=== PATIENT | female | born 1970 | race Caucasian/White ===

== ENCOUNTER 2016-12-09 16:23 | Emergency (ER) | payer OTHER ==
[~2016-12-09] VITALS: Ht 162.6 cm; Wt 50.0 kg
[~2016-12-09 16:23] MED LIST: AMOX875T PO; CLON0.1T PO; LISI-519 PO
[2016-12-09 16:30] VITALS: BP 116/83; PULSE 92; RESP 16; TEMP 97.9; O2SAT 100
[2016-12-09] MEDS ORDERED: LISI10TA PO (16:43)
[2016-12-09] MEDS ORDERED: SUMA25TA2 PO (16:43)
[2016-12-09] MEDS ORDERED: RANI150T PO (16:43)
[2016-12-09] MEDS ORDERED: DICY20TA10 PO (16:43)
[2016-12-09 16:51] LABS: BLOOD, URINE NEG (NEG); GLUCOSE,URINE NEG (NEG); KETONE, URINE NEG (NEG); NITRITE,URINE NEG (NEG)
--- NOTE | 2016-12-09 16:55 | PD ---
HPI Chief Complaint: GI Complaint Time Seen by Provider: 16:37 Travel History International Travel<30 days: No Contact w/Intl Traveler<30days: No Traveled to known affect area: No History of Present Illness HPI This 46-year-old female says she is having a lot of nausea and vomiting. She is having some pain in her mid back. She has been seeing various doctors for these complaints. She was sent to a kidney doctor and had an ultrasound of the kidneys done today. I have not been able to get the results of this. She also saw her social insurance analyst and right question of hyperparathyroidism. She has a history of tubal ligation. She has been having loose stools 3 times daily. She gets occasional chills. She has a history of urinary tract infection. She feels tired PFSH Past Medical History Hx Anticoagulant Therapy: No Arthritis: No Asthma: No Autoimmune Disease: No Blood Disorders: No Anxiety: No Depression: No Heart Rhythm Problems: No Cancer: No Cardiovascular Problems: Yes (HTN) High Cholesterol: No Chemotherapy: No Chest Pain: No Congestive Heart Failure: No COPD: No Cerebrovascular Accident: No Diabetes: No Diminished Hearing: No Endocrine: No Gastrointestinal Disorders: Yes (IBS) GERD: Yes Glaucoma: No Genitourinary: Yes ("history of kidney problems" ) Headaches: Yes Hepatitis: No Hiatal Hernia: No Hypertension: Yes Immune Disorder: No Implanted Vascular Access Dvce: No Kidney Stones: Yes Musculoskeletal: No Neurologic: No Psychiatric: No Reproductive: No Respiratory: No Immunizations Current: Yes Migraines: No Myocardial Infarction: No Pancreatitis: Yes Radiation Therapy: No Renal Failure: Yes (hx of insufficiency) Seizures: No Sickle Cell Disease: No Sleep Apnea: No Thyroid Disease: No Ulcer: No ?: Not : 3 Para: 2 Miscarriage: 1 : 0 Dilation and Curettage (D&C): Yes Tubal Ligation: Yes Past Surgical History Abdominal Surgery: No AICD: No Appendectomy: No Arteriovenous Shunt: No Cardiac Surgery: No Cholecystectomy: No Ear Surgery: No Endocrine Surgery: No Eye Surgery: No Genitourinary Surgery: No Gynecologic Surgery: Yes (TUBAL LIGATION, D & C) Insulin Pump: No Joint Replacement: No Neurologic Surgery: No Oral Surgery: No Pacemaker: No Thoracic Surgery: No Other Surgery: Yes Social History Alcohol Use: Yes Tobacco Use: No Substance Use: No Allergies-Medications (Allergen,Severity, Reaction): Coded Allergies: No Known Allergies (Unverified , 12/09/16) Reported Meds & Prescriptions Reported Meds & Active Scripts Active Reported Sumatriptan (Sumatriptan Succinate) 25 Mg Tab 25 Mg PO ONCE PRN If a satisfactory response has not been obtained at 2 hours, a second dose may be administered Ranitidine (Ranitidine HCl) 150 Mg Tab 150 Mg PO BID Dicyclomine (Dicyclomine HCl) 20 Mg Tab 20 Mg PO BID PRN Lisinopril-Hctz 10-12.5 Mg Tab 1 Tab PO DAILY Review of Systems General / Constitutional: No: Fever, Chills Eyes: No: Diploplia, Blurred Vision HENT: No: Headaches Cardiovascular: No: Chest Pain or Discomfort Gastrointestinal: Positive: Nausea Genitourinary: Positive: Flank Pain Musculoskeletal: No: Myalgias Neurologic: Positive: Weakness Hematologic/Lymphatic: No: Easy Bruising Physical Exam Narrative GENERAL: Well-developed female SKIN: Warm and dry. HEAD: Atraumatic. Normocephalic. EYES: Pupils equal and round. No scleral icterus. No injection or drainage. ENT: No nasal bleeding or discharge. Mucous membranes pink and moist. NECK: Trachea midline. No JVD. CARDIOVASCULAR: Regular rate and rhythm. No murmur appreciated. RESPIRATORY: No accessory muscle use. Clear to auscultation. Breath sounds equal bilaterally. GASTROINTESTINAL: Abdomen soft, non-tender, nondistended. Hepatic and splenic margins not palpable. MUSCULOSKELETAL: No obvious deformities. No clubbing. No cyanosis. No edema. NEUROLOGICAL: Awake and alert. No obvious cranial nerve deficits. Motor grossly within normal limits. Normal speech. PSYCHIATRIC: Appropriate mood and affect; insight and judgment normal. Data Data Last Documented VS Vital Signs Date Time Temp Pulse Resp B/P Pulse Ox O2 Delivery O2 Flow Rate FiO2 12/09/16 16:30 97.9 92 16 116/83 100 Orders Urinalysis - C+S If Indicated (12/09/16 16:34) Complete Blood Count With Diff (12/09/16 16:48) Comprehensive Metabolic Panel (12/09/16 16:48) Sodium Chlor 0.9% 1000 Ml Inj (Ns 1000 M (12/09/16 17:00) Ondansetron Inj (Zofran Inj) (12/09/16 17:00) Labs Laboratory Tests Test 12/09/16 12/09/16 16:35 16:55 Urine Color YELLOW Urine Turbidity CLEAR Urine pH 7.0 Urine Specific [place] 1.022 Urine Protein NEG mg/dL Urine Glucose (UA) NEG mg/dL Urine Ketones NEG mg/dL Urine Occult Blood NEG Urine Nitrite NEG Urine Bilirubin NEG Urine Leukocyte Esterase TRACE Urine WBC 0-2 /hpf Urine Squamous Epithelial 0-5 /hpf Cells Microscopic Urinalysis Comment CULT NOT INDICATED White Blood Count 10.0 TH/MM3 Red Blood Count 4.24 MIL/MM3 Hemoglobin 13.9 GM/DL Hematocrit 41.2 % Mean Corpuscular Volume 97.1 FL Mean Corpuscular Hemoglobin 32.7 PG Mean Corpuscular Hemoglobin 33.7 % Concent Red Cell Distribution Width 11.6 % Platelet Count 441 TH/MM3 Mean Platelet Volume 7.9 FL Neutrophils (%) (Auto) 56.4 % Lymphocytes (%) (Auto) 33.8 % Monocytes (%) (Auto) 7.3 % Eosinophils (%) (Auto) 1.8 % Basophils (%) (Auto) 0.7 % Neutrophils # (Auto) 5.6 TH/MM3 Lymphocytes # (Auto) 3.4 TH/MM3 Monocytes # (Auto) 0.7 TH/MM3 Eosinophils # (Auto) 0.2 TH/MM3 Basophils # (Auto) 0.1 TH/MM3 CBC Comment DIFF FINAL Differential Comment Sodium Level 137 MEQ/L Potassium Level 3.3 MEQ/L Chloride Level 97 MEQ/L Carbon Dioxide Level 31.5 MEQ/L Anion Gap 9 MEQ/L Blood Urea Nitrogen 23 MG/DL Creatinine 0.99 MG/DL Estimat Glomerular Filtration 60 ML/MIN Rate Random Glucose 105 MG/DL Calcium Level 8.8 MG/DL Total Bilirubin 0.3 MG/DL Aspartate Amino Transf 21 U/L (AST/SGOT) Alanine Aminotransferase 31 U/L (ALT/SGPT) Alkaline Phosphatase 82 U/L Total Protein 7.0 GM/DL Albumin 3.4 GM/DL [facility] Medical Decision Making Medical Screen Exam Complete: Yes Emergency Medical Condition: Yes Medical Record Reviewed: Yes Differential Diagnosis Differential includes a left-sided imbalance, gastritis, Narrative Course The ultrasound that she had done earlier today showed bilateral renal cysts, no hydronephrosis. Question of some parenchymal disease. Her urine is negative. Her creatinine now is 0.9. Etiology for her nausea has not been determined. Said her daughter don't think it is urgent at this time as she is not having abdominal pain and has no rigidity or guarding Diagnosis Primary Impression: Nausea Scripts Metoclopramide (Reglan)10 Mg Tab10 Mg PO TIDAC PRN (NAUSEA) #30 TAB Ref 0 Prov:Aldair Garcia MD 12/09/16 Disposition: 01 DISCHARGE HOME Condition: Stable Aldair Garcia MD Dec 09, 2016 16:55
[2016-12-09] MEDS ORDERED: ONDANSETRON HCL 4 MG/2 ML VIAL IV PUSH ONE (17:00)
[2016-12-09] MEDS ORDERED: SODIUM CHLOR 0.9% 1000 ML INJ 1,000 ML IV SCH (17:00)
[2016-12-09 17:10] LABS: COMMENT (UR) CULT NOT INDICATED; CULTURE IF INDICATED CULT NOT INDICATED; SQUAMOUS EPITHELIAL CELL URINE 0-5 /hpf (0-5); URINE COLOR YELLOW (YELLW/STRAW); WBC, URINE 0-2 /hpf (0-5)
[2016-12-09 17:19] LABS: AUTOMATED NEUTROPHIL # 5.6 TH/MM3 (1.8-7.7); BASOPHIL # 0.1 TH/MM3 (0-0.2); BASOPHIL % 0.7 % (0.0-2.0); EOSINOPHIL # 0.2 TH/MM3 (0-0.4); EOSINOPHIL % 1.8 % (0.0-4.0); HEMATOCRIT 41.2 % (35.0-46.0); LYMPH % 33.8 % (9.0-44.0); LYMPHOCYTE # 3.4 TH/MM3 (1.0-4.8); MEAN CELL VOLUME 97.1 FL (80.0-100.0); MEAN CORPUSCULAR HEMOGLOBIN 32.7 PG (27.0-34.0); MEAN CORPUSCULAR HGB CONC 33.7 % (32.0-36.0); MONO % 7.3 % (0.0-8.0); NEUT % 56.4 % (16.0-70.0); PLATELET COUNT 441 TH/MM3 (150-450); RED BLOOD COUNT 4.24 MIL/MM3 (4.00-5.30); RED CELL DISTRIBUTION WIDTH 11.6 % (11.6-17.2)
[2016-12-09 17:32] LABS: HEMO FLAGS DIFF FINAL
[2016-12-09 17:35] LABS: CHLORIDE 97 MEQ/L (98-107); POTASSIUM 3.3 MEQ/L (3.5-5.1); SODIUM (NA) 137 MEQ/L (136-145)
[2016-12-09 17:38] LABS: ANION GAP 9 MEQ/L (5-15); BICARBONATE 31.5 MEQ/L (21.0-32.0)
[2016-12-09 17:39] LABS: BLOOD UREA NITROGEN 23 MG/DL (7-18)
[2016-12-09 17:41] LABS: ALT (GPT) 31 U/L (10-53)
[2016-12-09 17:42] LABS: AST (GOT) 21 U/L (15-37); GLOMERULAR FILTRATION RATE 60 ML/MIN (>89)
[2016-12-09 17:43] LABS: TOTAL BILIRUBIN ADULT 0.3 MG/DL (0.2-1.0)
[2016-12-09 17:44] LABS: ALKALINE PHOSPHATASE 82 U/L (45-117)
[2016-12-09] MEDS ORDERED: REGL10TA5 PO (18:06)
[2016-12-09] MEDS ORDERED: POTASSIUM CHLORIDE 20 MEQ CONTROLLED RELEASE TAB PO ONE (18:15)
[2016-12-09 18:23] VITALS: BP 115/81
== END 2016-12-09 18:25 | disposition home or self-care (01) ==
LOC: PHED 16:23
DX: R11.2 Nausea with vomiting, unspecified (principal)
CPT/HCPCS: 80053; 81001; 85025; 96374; 99283; J2405; J7030

== ENCOUNTER 2017-04-01 17:11 | Emergency (ER) | payer OTHER ==
[~2017-04-01] VITALS: Ht 162.6 cm; Wt 49.0 kg
[~2017-04-01 17:11] MED LIST changes: -AMOX875T PO; -CLON0.1T PO; +DICY20TA10 PO; -LISI-519 PO; +LISI10TA PO; +RANI150T PO; +REGL10TA5 PO; +SUMA25TA2 PO
[2017-04-01 17:14] VITALS: BP 109/80; PULSE 91; RESP 18; TEMP 98.2; O2SAT 97
[2017-04-01] MEDS ORDERED: ZOFR4TAB PO (17:36)
--- NOTE | 2017-04-01 17:41 | PD ---
HPI Chief Complaint: ENT Complaint Time Seen by Provider: 17:35 Travel History International Travel<30 days: No Contact w/Intl Traveler<30days: No Traveled to known affect area: No History of Present Illness HPI 46-year-old female presents to the emergency room for evaluation of left ear discomfort and fullness for the past week. Patient states it has been getting progressively worse. She has associated nausea and dizziness from the symptoms. States that when she stands up she has disequilibrium like she has been drinking alcohol. She is normally on Flonase but has not had it for the past 4 days. She denies fever, chills, congestion, sore throat, cough, ear drainage, or significant ear pain. PFSH Past Medical History Hx Anticoagulant Therapy: No Arthritis: No Asthma: No Autoimmune Disease: No Blood Disorders: No Anxiety: No Depression: No Heart Rhythm Problems: No Cancer: No Cardiovascular Problems: Yes (HTN) High Cholesterol: No Chemotherapy: No Chest Pain: No Congestive Heart Failure: No COPD: No Cerebrovascular Accident: No Diabetes: No Diminished Hearing: No Endocrine: No Gastrointestinal Disorders: Yes (IBS) GERD: Yes Glaucoma: No Genitourinary: Yes (Kidney disease) Headaches: Yes Hepatitis: No Hiatal Hernia: No Hypertension: Yes Immune Disorder: No Implanted Vascular Access Dvce: No Kidney Stones: Yes Musculoskeletal: No Neurologic: No Psychiatric: No Reproductive: No Respiratory: No Immunizations Current: Yes Migraines: No Myocardial Infarction: No Pancreatitis: Yes Radiation Therapy: No Renal Failure: Yes (hx of insufficiency) Seizures: No Sickle Cell Disease: No Sleep Apnea: No Thyroid Disease: No Ulcer: No Influenza Vaccination: No ?: Not LMP: ONE WEEK AGO : 3 Para: 2 Miscarriage: 1 : 0 Dilation and Curettage (D&C): Yes Tubal Ligation: Yes Past Surgical History Abdominal Surgery: No AICD: No Appendectomy: No Arteriovenous Shunt: No Cardiac Surgery: No Cholecystectomy: No Ear Surgery: No Endocrine Surgery: No Eye Surgery: No Genitourinary Surgery: No Gynecologic Surgery: Yes (TUBAL LIGATION, D & C) Insulin Pump: No Joint Replacement: No Neurologic Surgery: No Oral Surgery: No Pacemaker: No Thoracic Surgery: No Other Surgery: Yes Social History Alcohol Use: Yes (rarely) Tobacco Use: No Substance Use: No Allergies-Medications (Allergen,Severity, Reaction): Coded Allergies: No Known Allergies (Unverified , 04/01/17) Reported Meds & Prescriptions Reported Meds & Active Scripts Active Amoxicillin 500 Mg Cap 500 Mg PO TID 7 Days Reported Zofran (Ondansetron HCl) 4 Mg Tab 4 Mg PO Q8HR PRN Sumatriptan (Sumatriptan Succinate) 25 Mg Tab 25 Mg PO ONCE PRN If a satisfactory response has not been obtained at 2 hours, a second dose may be administered Dicyclomine (Dicyclomine HCl) 20 Mg Tab 20 Mg PO BID PRN Lisinopril-Hctz 10-12.5 Mg Tab 1 Tab PO DAILY Review of Systems Except as stated in HPI: all other systems reviewed are Neg Physical Exam Narrative GENERAL: Well-nourished, well-developed female in no acute distress. Afebrile. Ambulatory. SKIN: Focused skin assessment warm/dry. HEAD: Normocephalic. EYES: No scleral icterus. No injection or drainage. EARS: Bilateral pinnae and external canals appear within normal limits. Right tympanic membrane without erythema, dullness or perforation. Left tympanic membrane is very slightly erythematous with obvious effusion. No perforation. NECK: Supple, trachea midline. No JVD or lymphadenopathy. CARDIOVASCULAR: Regular rate and rhythm without murmurs, gallops, or rubs. RESPIRATORY: Breath sounds equal bilaterally. No accessory muscle use. Data Data Last Documented VS Vital Signs Date Time Temp Pulse Resp B/P Pulse Ox O2 Delivery O2 Flow Rate FiO2 04/01/17 17:14 98.2 91 18 109/80 97 MDM Medical Decision Making Medical Screen Exam Complete: Yes Emergency Medical Condition: Yes Medical Record Reviewed: Yes Differential Diagnosis Otitis media versus otitis externa versus eustachian tube dysfunction Narrative Course 46-year-old female presents to the emergency room for evaluation of left ear discomfort for the past week. She has associated disequilibrium and nausea. She is afebrile and well-appearing in the emergency room. No systemic signs of infection. Rest comfortably in bed. Physical exam reveals left tympanic membrane is very slightly erythematous with obvious effusion. No perforation. Patient will be treated conservatively with oral antibiotics for otitis media with effusion. She was told to follow up with a primary care physician or return to the emergency room forcing symptoms. She understands and agrees. Diagnosis Primary Impression: Acute otitis media with effusion of left ear Referrals: Primary Care Physician Patient Instructions: General Instructions, Otitis Media (ED) Additional Instructions: Rest and drink plenty of fluids. Continue Flonase as directed. Take Afrin as directed. Do not take greater than 3 days. Take amoxicillin as directed, until gone. Follow-up with a primary care physician. Return to the emergency room for worsening symptoms. Med/Other Pt SpecificInfo: Prescription(s) given Scripts Amoxicillin 500 Mg [id number] Mg PO TID 7 Days Ref 0 Prov:Sergio Chavez MD 04/01/17 Disposition: 01 DISCHARGE HOME Condition: Stable Karuna Barber April 01, 2017 17:41
[2017-04-01] MEDS ORDERED: AMOX500C PO (17:43)
== END 2017-04-01 17:54 | disposition home or self-care (01) ==
LOC: PHEFT 17:11
DX: H65.192 Other acute nonsuppurative otitis media, left ear (principal); I10 Essential (primary) hypertension
CPT/HCPCS: 99282

== ENCOUNTER 2017-05-08 23:24 | Emergency (ER) | payer OTHER ==
[~2017-05-08] VITALS: Ht 162.6 cm; Wt 53.7 kg
[~2017-05-08 23:24] MED LIST changes: +AMOX500C PO; -RANI150T PO; -REGL10TA5 PO; +ZOFR4TAB PO
[2017-05-08 23:31] VITALS: BP 144/93; PULSE 113; RESP 16; TEMP 98.1; O2SAT 99
[2017-05-09] MEDS ORDERED: LISI-519 PO (00:38)
--- NOTE | 2017-05-09 00:41 | PD ---
HPI Chief Complaint: Complaint Time Seen by Provider: 00:26 Travel History International Travel<30 days: No Contact w/Intl Traveler<30days: No Traveled to known affect area: No History of Present Illness HPI The patient is a 46-year-old female, frequent visitor to the emergency department for minor problems who has multiple complaints. The patient has frequency of urination, chronic bilateral leg and feet swelling, right thumb appearing purple, nausea for over a month, she does have chronic nausea and takes Zofran for this and redness in both eyes as well as a headache behind both eyes and chronic diarrhea. The patient does have renal insufficiency and is followed by Dr. Diony Miranda for this and is checked twice yearly by him. The purple appearance of the right thumb has subsided and the swelling of the feet have subsided now that she has her feet up. 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 PFSH Past Medical History Hx Anticoagulant Therapy: No Arthritis: No Asthma: No Autoimmune Disease: No Blood Disorders: No Anxiety: No Depression: No Heart Rhythm Problems: No Cancer: No Cardiovascular Problems: Yes (HTN) High Cholesterol: No Chemotherapy: No Chest Pain: No Congestive Heart Failure: No COPD: No Cerebrovascular Accident: No Diabetes: No Diminished Hearing: No Endocrine: No Gastrointestinal Disorders: Yes (IBS) GERD: Yes Glaucoma: No Genitourinary: Yes (Kidney disease) Headaches: Yes Hepatitis: No Hiatal Hernia: No Hypertension: Yes Immune Disorder: No Implanted Vascular Access Dvce: No Kidney Stones: Yes Musculoskeletal: No Neurologic: No Psychiatric: No Reproductive: No Respiratory: No Immunizations Current: Yes Migraines: No Myocardial Infarction: No Pancreatitis: Yes Radiation Therapy: No Renal Failure: Yes (hx of insufficiency) Seizures: No Sickle Cell Disease: No Sleep Apnea: No Thyroid Disease: No Ulcer: No Tetanus Vaccination: < 5 Years Influenza Vaccination: No ?: Not LMP: 1 MONTH AGO : 3 Para: 2 Miscarriage: 1 : 0 Dilation and Curettage (D&C): Yes Tubal Ligation: Yes Past Surgical History Abdominal Surgery: No AICD: No Appendectomy: No Arteriovenous Shunt: No Cardiac Surgery: No Cholecystectomy: No Ear Surgery: No Endocrine Surgery: No Eye Surgery: No Genitourinary Surgery: No Gynecologic Surgery: Yes (TUBAL LIGATION, D & C) Insulin Pump: No Joint Replacement: No Neurologic Surgery: No Oral Surgery: No Pacemaker: No Thoracic Surgery: No Other Surgery: Yes Social History Alcohol Use: Yes (rarely) Tobacco Use: No (QUIT 25 YRS AGO) Substance Use: No Allergies-Medications (Allergen,Severity, Reaction): Coded Allergies: No Known Allergies (Unverified , 05/09/17) Reported Meds & Prescriptions Reported Meds & Active Scripts Active Reported Lisinopril 5 Mg Tab 5 Mg PO DAILY Review of Systems Except as stated in HPI: all other systems reviewed are Neg Physical Exam Narrative GENERAL: Well-nourished, well-developed patient in no apparent distress. Her vital signs show blood pressure 144/93 and heart rate of 113 but otherwise normal. When I see her her heart rate is in the mid 80s. SKIN: Focused skin assessment warm/dry. No skin rashes seen. HEAD: Normocephalic. EYES: No scleral icterus. The patient does have bilateral conjunctival injection without any drainage. NECK: Supple, trachea midline. No JVD or lymphadenopathy. There is no meningismus present. CARDIOVASCULAR: Regular rate and rhythm without murmurs, gallops, or rubs. RESPIRATORY: Breath sounds equal bilaterally. No accessory muscle use. Lungs clear to auscultation bilaterally. GASTROINTESTINAL: Abdomen soft, non-tender, nondistended. MUSCULOSKELETAL: No cyanosis, or edema. I do not see any redness or duskiness of either thumb, the gums appear normal. BACK: Nontender without obvious deformity. No CVA tenderness. ENT: No sinus tenderness is present. The throat is clear and the tympanic membranes are clear. Data Data Last Documented VS Vital Signs Date Time Temp Pulse Resp B/P Pulse Ox O2 Delivery O2 Flow Rate FiO2 05/08/17 23:31 98.1 113 16 144/93 99 Orders Urinalysis - C+S If Indicated (05/09/17 00:04) Ed Urine Pregnancytest Poc (05/09/17 00:04) Labs Laboratory Tests Test 05/09/17 00:05 Urine Color YELLOW Urine Turbidity CLEAR Urine pH 8.0 Urine Specific [place] 1.011 Urine Protein 30 mg/dL Urine Glucose (UA) NEG mg/dL Urine Ketones NEG mg/dL Urine Occult Blood NEG Urine Nitrite NEG Urine Bilirubin NEG Urine Leukocyte Esterase NEG Urine RBC 0-2 /hpf Urine WBC 3-5 /hpf Urine Squamous Epithelial 6-8 /hpf Cells Urine Bacteria RARE /hpf Microscopic Urinalysis Comment CULT NOT INDICATED MDM Medical Decision Making Medical Screen Exam Complete: Yes Emergency Medical Condition: Yes Medical Record Reviewed: Yes Interpretation(s) The urinalysis is normal except for rare bacteria and culture is not indicated. Differential Diagnosis Viral syndrome, chronic renal insufficiency, chronic nausea, urinary tract infection Narrative Course The patient likely has a viral syndrome. She has headache behind her eyes and conjunctival injection. She also has multiple chronic other problems that she sees nephrology for. The swelling of the peak, purple appearance of the right thumb has resolved. Diagnosis Primary Impression: Viral syndrome Additional Instructions: As we discussed, I wrote use Zofran prescription for your gastrointestinal problems. You may need to see a grocery sacker for these. Med/Other Pt SpecificInfo: Prescription(s) given Scripts Ondansetron (Zofran)4 Mg Tab4 Mg PO Q6HR PRN (NAUSEA OR VOMITING) #30 TAB Ref 0 Prov:Suleman Montoya MD 05/09/17 Disposition: DISCHARGE HOME Condition: Stable Suleman Montoya MD May 09, 2017 00:41
[2017-05-09 00:57] LABS: BLOOD, URINE NEG (NEG); GLUCOSE,URINE NEG (NEG); KETONE, URINE NEG (NEG); NITRITE,URINE NEG (NEG)
[2017-05-09 01:06] LABS: BACTERIA, URINE RARE /hpf; RBC, URINE 0-2 /hpf (0-3); URINE COLOR YELLOW (YELLW/STRAW)
[2017-05-09 01:07] LABS: COMMENT (UR) CULT NOT INDICATED; CULTURE IF INDICATED CULT NOT INDICATED
[2017-05-09] MEDS ORDERED: ZOFR4TAB PO (01:12)
[2017-05-09 01:26] VITALS: BP 120/68
== END 2017-05-09 01:27 | disposition home or self-care (01) ==
LOC: PHED 23:24
DX: B34.9 Viral infection, unspecified (principal); R51 Headache; H11.89 Other specified disorders of conjunctiva; R35.0 Frequency of micturition; R11.0 Nausea; R19.7 Diarrhea, unspecified; N28.9 Disorder of kidney and ureter, unspecified; I10 Essential (primary) hypertension; Z86.79 Personal history of other diseases of the circulatory system; Z87.19 Personal history of other diseases of the digestive system; Z87.448 Personal history of other diseases of urinary system
CPT/HCPCS: 81001; 84703; 99283

== ENCOUNTER 2017-05-15 05:10 | Inpatient (IN) | payer OTHER ==
[~2017-05-15] VITALS: Ht 162.6 cm; Wt 53.8 kg
[~2017-05-15 05:10] MED LIST changes: -AMOX500C PO; -DICY20TA10 PO; +LISI-519 PO; -LISI10TA PO; -SUMA25TA2 PO
[2017-05-15 15:00] VITALS: BP 166/107; PULSE 104; RESP 20; TEMP 97.6; O2SAT 99
--- NOTE | 2017-05-15 15:48 | HHI.HP ---
HPI Service [facility] Primary Care Physician Non-Staff Admission Diagnosis renal failure Diagnoses: (1) Renal failure Diagnosis: Principal Chief Complaint: ' kidney failure' Travel History International Travel<30 Days: No Contact w/Intl Traveler <30 Da: No Traveled to Known Affected Are: No History of Present Illness patient is a 46 y/o female with history of chronic kidney disease and hypertension who was initially admitted to [facility] for acute kidney injury and hypercalcemia. she says that she had ' flu-like' symptoms about two weeks ago. she says that she was seen in ER last week and was discharge home after she was told that she had a viral disease. she says that she wasn't feeling good and noticed that her legs were swollen. she says that she had some ' jerky movements' of the hands. she was admitted to [facility] and underwent kidney biopsy yesterday. she was transferred to [facility] for further evaluation and treatment. at the time of my evaluation she was resting comfortably with no distress. had mild headache otherwise she denies any chest pain, sob, abdominal pain, nausea or vomiting. Review of Systems Constitutional: DENIES: Fever, Weight loss, Chills, Night Sweats Eyes: DENIES: Blurred vision, Diplopia, Vision loss, Double Vision Ears, nose, mouth, throat: DENIES: Tinnitus, Vertigo, Throat pain, Epistaxis Respiratory: DENIES: Apneas, Cough, Snoring, Wheezing, Hemoptysis, Sputum production, Shortness of breath Cardiovascular: DENIES: Chest pain, Palpitations, Syncope, Dyspnea on Exertion , PND, Lower Extremity Edema, Orthopnea, Claudication Gastrointestinal: DENIES: Abdominal pain, Black stools, Bloody stools, Constipation, Diarrhea, Nausea, Vomiting, Difficulty Swallowing, Anorexia Genitourinary: DENIES: Urinary frequency, Urgency, Hematuria, Dysuria Musculoskeletal: DENIES: Joint pain, Muscle aches, Stiffness, Joint Swelling Integumentary: DENIES: Rash Neurologic: COMPLAINS OF: Headache, DENIES: Abnormal gait, Localized weakness , Paresthesias, Seizures, Speech Problems, Tremor, Poor Balance Psychiatric: DENIES: Anxiety, Confusion, Mood changes, Depression, Hallucinations, Agitation, Suicidal Ideation, Homicidal Ideation, Delusions Past Family Social History Past Medical History hypertension chronic kidney disease Past Surgical History tubal ligation Reported Medications lisinopril zofran Allergies: Coded Allergies: No Known Allergies (Unverified , 05/09/17) Family History diabetes runs in the family. Social History doesn't smoke. drinks occasionally. Physical Exam Physical Exam GENERAL: This is a well-nourished, well-developed patient, in no apparent distress. SKIN: No rashes, ecchymoses or lesions. Cool and dry. HEAD: Atraumatic. Normocephalic. No temporal or scalp tenderness. EYES: Pupils equal round and reactive. Extraocular motions intact. No scleral icterus. No injection or drainage. ENT: Nose without bleeding, purulent drainage or septal hematoma. Throat without erythema, tonsillar hypertrophy or exudate. Uvula midline. Airway patent. NECK: Trachea midline. No JVD or lymphadenopathy. Supple, nontender, no meningeal signs. CARDIOVASCULAR: Regular rate and rhythm without murmurs, gallops, or rubs. RESPIRATORY: Clear to auscultation. Breath sounds equal bilaterally. No wheezes , rales, or rhonchi. GASTROINTESTINAL: Abdomen soft, non-tender, nondistended. No hepato-splenomegaly , or palpable masses. No guarding. MUSCULOSKELETAL: Extremities without clubbing, cyanosis, or edema. No joint tenderness, effusion, or edema noted. No calf tenderness. Negative Homans sign bilaterally. NEUROLOGICAL: Awake and alert. Cranial nerves II through XII intact. Motor and sensory grossly within normal limits. Five out of 5 muscle strength in all muscle groups. Normal speech. Assessment and Plan Assessment and Plan A/P - acute kidney injury superimposed on chronic kidney disease- s/p kidney biopsy ( [facility]) start IV fluid and monitor the renal function- follow the result of biopsy- consult nephrology -hypercalcemia; start IV fluid and monitor calcium level -hypertension; stop lisinopril- clonidine prn for now- will monitor BP -DVT prophylaxis with SCD's Discussed Condition With the patient and RN. Physician Certification 2 Midnight Certification Type: Admission for Inpatient Services Order for Inpatient Services The services are ordered in accordance with Medicare regulations or non- Medicare payer requirements, as applicable. In the case of services not specified as inpatient-only, they are appropriately provided as inpatient services in accordance with the 2-midnight benchmark. Estimated LOS (days): 3 days is the estimated time the patient will need to remain in the hospital, assuming treatment plan goals are met and no additional complications. Post-Hospital Plan: Home Problem Qualifiers (1) Renal failure: Oseas Cardona MD May 15, 2017 15:48
[2017-05-15] MEDS ORDERED: SODIUM CHLOR 0.9% 1000 ML INJ 1,000 ML IV ONE (16:00)
[2017-05-15] MEDS: ACETAMINOPHEN 325 MG TAB PO PRN (16:09)
[2017-05-15] MEDS: cloNIDine HCL 0.1 MG TAB PO PRN (16:09)
--- NOTE | 2017-05-15 17:01 | PD.CONS ---
HPI Service Nephrology Consult Requested By Dr. Cardona Reason for Consult Acute renal failure Primary Care Physician Non-Staff History of Present Illness Patient is a 46-year-old white female with history of chronic kidney disease stage II she used to follow with Dr. Smith and then recently switched to Dr. 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 She was admitted at [facility] and a kidney biopsy was done which showed acute tubular necrosis, due to insurance she was transferred back to [place]. She states she is feeling better the swelling has went away she is passing urine. Review of Systems Constitutional: COMPLAINS OF: Fatigue Gastrointestinal: COMPLAINS OF: Abdominal pain Psychiatric: COMPLAINS OF: Anxiety Past Family Social History Allergies: Coded Allergies: No Known Allergies (Unverified , 05/09/17) Past Medical History Acute renal failure Chronic kidney disease Hypertension Irritable bowel syndrome Osteoporosis Kidney stones Hernia Tubal ligation Past Surgical History Tubal ligation D&C Reported Medications Reported Meds & Active Scripts Active Zofran (Ondansetron HCl) 4 Mg Tab 4 Mg PO Q6HR PRN Reported Lisinopril 5 Mg Tab 5 Mg PO DAILY Active Ordered Medications Current Medications Medications (Trade) Dose Ordered Sig/Nelia Route Start Time Stop Time Status Last Admin (Catapres) 0.1 mg Q8HR PRN PO 05/15/17 15:45 05/15/17 16:09 (Zofran Inj) 4 mg Q8HR PRN IV PUSH 05/15/17 15:45 Acetaminophen 650 mg 650 mg Q4H PRN PO 05/15/17 15:45 05/15/17 16:09 (NS 1000 ml Inj) 1,000 ml @ 40 mls/hr Q24H ONCE IV 05/15/17 16:00 05/16/17 15:59 05/15/17 16:10 Family History Mother has medical issues colostomy and chronic kidney disease Social History She has a rare alcoholic beverages denies smoking Physical Exam Vital Signs Vital Signs Date Time Temp Pulse Resp B/P Pulse Ox O2 Delivery O2 Flow Rate FiO2 05/15/17 15:56 Room Air Physical Exam GENERAL: Well-nourished, well-developed patient. SKIN: Warm and dry. HEAD: Normocephalic. EYES: No scleral icterus. No injection or drainage. NECK: Supple, trachea midline. No JVD or lymphadenopathy. CARDIOVASCULAR: Regular rate and rhythm without murmurs, gallops, or rubs. RESPIRATORY: Breath sounds equal bilaterally. No accessory muscle use. GASTROINTESTINAL: Abdomen soft, non-tender, nondistended. EXTREMITIES: No cyanosis, or edema. NEUROLOGICAL: Awake, alert, and oriented x 3. Non-focal. Assessment and Plan Problem List: (1) Acute renal failure Plan: Patient had a right kidney biopsy and it showed the acute tubular necrosis, she probably got a viral syndrome and got dehydrated and now is recovering continue to follow BMP Avoid nephrotoxins Avoid dye studies or gadolinium I discussed with the case with Dr. Day She should avoid calcium supplements (2) Viral syndrome Plan: Continue to monitor (3) Hypercalcemia Plan: Resolved Nguyen Downing MD May 15, 2017 17:01
[2017-05-15] MEDS: ONDANSETRON HCL 4 MG/2 ML VIAL IV PUSH PRN (18:18)
[2017-05-15 20:00] VITALS: BP 165/98; PULSE 82; PULSE 86; RESP 18; TEMP 97.5; O2SAT 98
[2017-05-15] MEDS: PANTOPRAZOLE SOD 40 MG DELAYED RELEASE TAB PO SCH (21:11)
[2017-05-15 21:45] LABS: BACTERIA, URINE RARE /hpf; BLOOD, URINE MOD (NEG); COMMENT (UR) CULT NOT INDICATED; CULTURE IF INDICATED CULT NOT INDICATED; GLUCOSE,URINE NEG (NEG); KETONE, URINE NEG (NEG); NITRITE,URINE NEG (NEG); PH, URINE 7.5 (5.0-8.5); SQUAMOUS EPITHELIAL CELL URINE 1 /hpf (0-5); URINE COLOR LIGHT-YELLOW (YELLW/STRAW)
[2017-05-16] VITALS: BP 152/92; PULSE 85; RESP 18; TEMP 97.8; O2SAT 96
[2017-05-16 04:00] VITALS: BP 169/98; PULSE 91; RESP 16; TEMP 97.6; O2SAT 96
[2017-05-16 06:04] LABS: BASOPHIL # 0.1 TH/MM3 (0-0.2); BASOPHIL % 1.4 % (0.0-2.0); EOSINOPHIL # 0.2 TH/MM3 (0-0.4); EOSINOPHIL % 3.6 % (0.0-4.0); HEMO FLAGS DIFF FINAL; LYMPH % 28.4 % (9.0-44.0); LYMPHOCYTE # 1.9 TH/MM3 (1.0-4.8); MEAN CORPUSCULAR HEMOGLOBIN 32.3 PG (27.0-34.0); MEAN CORPUSCULAR HGB CONC 32.7 % (32.0-36.0); MONO % 7.8 % (0.0-8.0); NEUT % 58.8 % (16.0-70.0); PLATELET COUNT 341 TH/MM3 (150-450); RED BLOOD COUNT 2.42 MIL/MM3 (4.00-5.30); RED CELL DISTRIBUTION WIDTH 12.6 % (11.6-17.2); WHITE BLOOD COUNT 6.7 TH/MM3 (4.0-11.0)
[2017-05-16 06:27] LABS: BICARBONATE 21.2 MEQ/L (21.0-32.0); POTASSIUM 3.3 MEQ/L (3.5-5.1)
[2017-05-16 08:00] VITALS: BP 165/94; PULSE 83; RESP 20; TEMP 97.2; O2SAT 100
[2017-05-16] MEDS: PANTOPRAZOLE SOD 40 MG DELAYED RELEASE TAB PO SCH (09:28)
[2017-05-16] MEDS: ONDANSETRON HCL 4 MG/2 ML VIAL IV PUSH PRN (09:33)
[2017-05-16] MEDS: ACETAMINOPHEN 325 MG TAB PO PRN ×2 (09:57→21:10)
--- NOTE | 2017-05-16 10:40 | HHI.PR ---
Subjective Remarks resting comfortably with no distress. she's complaining of difficulty swallowing; she says that she tried to had her dinner last night but she threw up. Objective Vitals Vital Signs Date Time Temp Pulse Resp B/P Pulse Ox O2 Delivery O2 Flow Rate FiO2 05/16/17 08:00 97.2 83 20 165/94 100 05/16/17 04:00 97.6 91 16 169/98 96 05/16/17 00:00 97.8 85 18 152/92 96 05/15/17 22:18 Room Air 05/15/17 20:00 97.5 82 18 165/98 98 05/15/17 20:00 86 05/15/17 15:56 Room Air 05/15/17 15:00 97.6 104 20 166/107 99 I/O 05/15/17 05/15/17 05/15/17 05/16/17 05/16/17 05/16/17 07:00 15:00 23:00 07:00 15:00 23:00 Intake Total 520 ml 500 ml Output Total 350 ml 800 ml Balance 170 ml -300 ml Intake Oral 520 ml 500 ml Output Urine Total 350 ml 800 ml # Bowel Movements 0 1 Result Diagram: 05/16/17 0538 05/16/17 0538 Objective Remarks GENERAL: This is a well-nourished, well-developed patient, in no apparent distress. CARDIOVASCULAR: Regular rate and regular rhythm without murmurs, gallops, or rubs. RESPIRATORY: Clear to auscultation. Breath sounds equal bilaterally. No wheezes , rales, or rhonchi. GASTROINTESTINAL: Abdomen soft, non-tender, nondistended. Normal, active bowel sounds MUSCULOSKELETAL: Extremities without clubbing, cyanosis, or edema. NEURO: Alert & Oriented x4 to person, place, time, situation. Moves all ext x4 Procedures none Medications and IVs Current Medications Clonidine (Catapres) 0.1 mg Q8HR PRN PO SBP> OR = 180, DBP> OR = 100 Last administered on 05/15/17 16:09; Start 05/15/17 at 15:45 Ondansetron HCl (Zofran Inj) 4 mg Q8HR PRN IV PUSH NAUSEA Last administered on 05/16/17 09:33; Start 05/15/17 at 15:45 Acetaminophen 650 mg 650 mg Q4H PRN PO FEVER/HEADACHE Last administered on 09:57; Start 05/15/17 at 15:45 Sodium Chloride (NS 1000 ml Inj) 1,000 ml @ 40 mls/hr Q24H ONCE IV Last administered on 05/15/17 16:10; Start 05/15/17 at 16:00; Stop 05/16/17 at 15:59 Pantoprazole Sodium (Protonix) 40 mg DAILY PO Last administered on 05/16/17 09: 28; Start 05/15/17 at 21:00 A/P Assessment and Plan A/P - acute kidney injury superimposed on chronic kidney disease- s/p kidney biopsy ( [facility]) which showed ATN. renal function improving. continue IV fluid and monitor the renal function- nephrology following. -hypercalcemia; improved- continue IV fluid and monitor calcium level -anemia due to chronic disease vs dilutional- check iron panel- stool for blood - monitor H/H -dysphagia- will consult GI -hypertension; stop lisinopril- start norvasc- clonidine prn for now- will monitor BP and adjust the regimen as needed. -mild hypokalemia; will replace and monitor. -DVT prophylaxis with SCD's Oseas Cardona MD May 16, 2017 10:39
[2017-05-16] MEDS ORDERED: POTASSIUM CHLORIDE 20 MEQ CONTROLLED RELEASE TAB PO ONE (10:45)
[2017-05-16 11:12] LABS: TRANSFERRIN IRON PROFILE 187 MG/DL (200-360)
[2017-05-16] MEDS: amLODIPine BESYLATE 5 MG TAB PO SCH (11:43)
[2017-05-16 12:00] VITALS: BP 146/92; PULSE 79; RESP 20; TEMP 97.7; O2SAT 96
--- NOTE | 2017-05-16 12:40 | PD.PN.STU ---
Subjective Remarks S: Patient is a 46 year old female who presents for GI consult. She states that she's been having some increased trouble swallowing in the past week. She's noticed mild dysphagia in the past month but notes its gotten worse over the past week. She feels that pills and solids get stuck. She also has difficulty with liquids , but it is less. She notes some pain and discomfort when she finds that the food gets stuck. She states that she has been vomiting a lot in the past week, with the last episode being last night. She tried to swallow a piece of salmon, and it wouldn't go down, so she threw up. She does get a burning sensation in her chest sometimes, with mild epigastric pain/discomfort. Her last bowel movement was today and it was a looser black color. She states that she uses Tylenol all the time for pain, and eats spicy foods. She denies fever, but sometimes gets chills, she does find it hard to breath occasionally. Denies CP, headaches. Remaining ROS unremarkable. PMH: CKD, HTN, Celiac sprue, IBS. never had an endoscopy PSHx: tubal ligation FHx: mom has a hiatal hernia, parents both have kidney problems, and diabetes runs in the family. SHx: doesn't smoke and drinks alcohol occasionally, although not recently because it causes her discomfort. NKDA Objective Vitals Vital Signs Date Time Temp Pulse Resp B/P Pulse Ox O2 Delivery O2 Flow Rate FiO2 05/16/17 08:00 97.2 83 20 165/94 100 05/16/17 04:00 97.6 91 16 169/98 96 05/16/17 00:00 97.8 85 18 152/92 96 05/15/17 22:18 Room Air 05/15/17 20:00 97.5 82 18 165/98 98 05/15/17 20:00 86 05/15/17 15:56 Room Air 05/15/17 15:00 97.6 104 20 166/107 99 I/O 05/15/17 05/15/17 05/15/17 05/16/17 05/16/17 05/16/17 07:00 15:00 23:00 07:00 15:00 23:00 Intake Total 520 ml 500 ml Output Total 350 ml 800 ml Balance 170 ml -300 ml Intake Oral 520 ml 500 ml Output Urine Total 350 ml 800 ml # Bowel Movements 0 1 O: Gen: WDWN, not in acute distress HEENT: negative Neck: supple, neg LAD Heart: RRR, no murmurs Lungs: CTA Abdomen: soft, nontender, nondistended; normal bowel sounds Ext: no edema or cyanosis Neuro: alert and oriented x3; no focal deficits. Result Diagram: 05/16/17 0538 05/16/17 05 Other Results Laboratory Tests Test 05/15/17 05/16/17 21:10 05:38 Urine Occult Blood MOD (NEG) Urine Bacteria RARE /hpf (NONE) Red Blood Count 2.42 MIL/MM3 (4.00-5.30) Hemoglobin 7.8 GM/DL (11.6-15.3) Hematocrit 24.0 % (35.0-46.0) Potassium Level 3.3 MEQ/L (3.5-5.1) Chloride Level 111 MEQ/L (98-107) Blood Urea Nitrogen 23 MG/DL (7-18) Creatinine 3.69 MG/DL (0.50-1.00) Estimat Glomerular Filtration 13 ML/MIN (>89) Rate Medications and IVs Current Medications Medications (Trade) Dose Ordered Sig/Nelia Route Start Time Stop Time Status Last Admin (Catapres) 0.1 mg Q8HR PRN PO 05/15/17 15:45 05/15/17 16:09 (Zofran Inj) 4 mg Q8HR PRN IV PUSH 05/15/17 15:45 05/16/17 09:33 Acetaminophen 650 mg 650 mg Q4H PRN PO 05/15/17 15:45 05/16/17 09:57 (NS 1000 ml Inj) 1,000 ml @ 40 mls/hr Q24H ONCE IV 05/15/17 16:00 05/16/17 15:59 05/15/17 16:10 (Protonix) 40 mg DAILY PO 05/15/17 21:00 05/16/17 09:28 (Norvasc) 5 mg DAILY PO 05/16/17 10:45 05/16/17 11:43 A/P Assessment and Plan A: 1. Dysphagia secondary to possible esophageal stricture, esophagitis, esophageal dysmotility or spasm 2. normocytic anemia, anemia of chronic disease probably secondary to renal failure 3. possible acid reflux, gastritis, or ulcers P: 1. EGD to assess whether there is stricture, esophagitis, esophageal dysmotility /spasm, gastritis or any ulcers; possible dilation based on findings. Also to rule out GI bleed; can also rule out H.pylori 2. Monitor labs and transfuse as needed GI consult note Patient was seen and examined Case discussed with the medical student Agree with above Patient with dysphagia etiology unclear but possibly related to esophagitis and esophageal spasms versus other We will proceed with an EGD Further recommendations shall follow Nathen Metzger M3 May 16, 2017 12:40 Armaan Sanchez MD May 16, 2017 20:05
[2017-05-16 16:00] VITALS: BP 175/96; PULSE 81; RESP 20; TEMP 97.4; O2SAT 99
--- NOTE | 2017-05-16 16:42 | HHI.NPPN ---
Subjective Additional Remarks Feels well, no acute complaints today Objective Data Data 05/15/17 05/16/17 19:00 07:00 Intake Total 1020 ml Output Total 1150 ml Balance -130 ml Intake Oral 1020 ml Output Urine Total 1150 ml # Bowel Movements 1 Vital Signs Date Time Temp Pulse Resp B/P Pulse Ox O2 Delivery O2 Flow Rate FiO2 05/16/17 12:00 97.7 79 20 146/92 96 05/16/17 08:00 97.2 83 20 165/94 100 05/16/17 07:00 Room Air 05/16/17 04:00 97.6 91 16 169/98 96 05/16/17 00:00 97.8 85 18 152/92 96 05/15/17 22:18 Room Air 05/15/17 20:00 97.5 82 18 165/98 98 05/15/17 20:00 86 -: 05/16/17 0538 05/16/17 0538 Physical Exam General Appearance: Well Developed, Well Nourished, No Acute Distress Throat Throat Exam: Oral Mucosa [place] & Moist Neck Neck Exam: Neck Supple Pulmonary Resp Exam: Clear Bilaterally Cardiology CV Exam: Regular, Normal Sinus Rhythm, Good Perfusion Gastrointestinal/Abdomen GI Exam: Soft, Non-Tender, Bowel Sounds Present Genitourinary Exam: Clear Urine Musculoskeletal MS Exam: Joints Intact Integumentary Skin Exam: Dry, Intact Extremeties Extremities Exam: No Edema Neurologic Neuro Exam: Alert, Awake, Oriented, Speech Clear Assessment/Plan Problem List: (1) Acute renal failure Plan: Patient had a right kidney biopsy 05/14 and it showed the acute tubular necrosis: Likely viral syndrome and got dehydrated - now is recovering continue to follow BMP Creatinine was 5, improving now. Apparent baseline creatinine in the 2s per patient (Creatinine 0.99 11/2016). Conitnue IVFs Possible plan for D/C as creatinine further stabilizes. Given potassium earlier for hypokalemia, follow AM labs. Avoid nephrotoxins Avoid dye studies or gadolinium She should avoid calcium supplements (2) Viral syndrome Plan: Continue to monitor (3) Hypercalcemia Plan: Resolved Problem Qualifiers (1) Acute renal failure: Qualified Code: N17.9 - Acute renal failure, unspecified acute renal failure type Elia Miranda MD May 16, 2017 16:42
[2017-05-16 20:00] VITALS: BP 160/100; PULSE 79; PULSE 82; RESP 18; TEMP 97.9; O2SAT 100
[2017-05-16] MEDS: cloNIDine HCL 0.1 MG TAB PO PRN (21:10)
[2017-05-17] VITALS (8 sets, daily range): BP systolic 115–157; BP diastolic 65–95; PULSE 68–99; RESP 16–18; TEMP 97.3–98.3; O2SAT 96–99
[2017-05-17] MEDS: PANTOPRAZOLE SOD 40 MG DELAYED RELEASE TAB PO SCH (08:33)
[2017-05-17] MEDS: amLODIPine BESYLATE 5 MG TAB PO SCH (08:33)
[2017-05-17] MEDS ORDERED: DO NOT ADM ANY ANTICOAGULANT DRUGS PRN (10:40)
[2017-05-17] MEDS ORDERED: PROPOFOL 200 MG/20 ML AMP IV PUSH ONE (10:41)
--- NOTE | 2017-05-17 10:47 | GIPROC ---
[facility] [address]. [facility], [address] EGD PROCEDURE REPORT EXAM DATE: 05/17/2017 PATIENT NAME: Aziza Aguilar MR #: [id number] BIRTHDATE: 1970 ATTENDING: Sally Casillas MD ORDER #: [id number] CANDY SUPERVISOR: Aidee Sheriff and Javon Rivera STATUS: inpatient INDICATIONS: The patient is a 46 yr old female here for an EGD due to difficulty swallowing, fulness PROCEDURE PERFORMED: EGD, diagnostic MEDICATIONS: Per Anesthesia and None. TOPICAL ANESTHETIC: CONSENT: The patient understands the risks and benefits of the procedure and understands that these risks include, but are not limited to: sedation, allergic reaction, infection, perforation and/or bleeding. Alternative means of evaluation and treatment include, among others: physical exam, x-rays, and/or surgical intervention. The patient elects to proceed with this endoscopic procedure. medical equipment was checked for proper function. Hand hygiene and appropriate measures for infection prevention was taken. After the risks, benefits and alternatives of the procedure were thoroughly explained, Informed consent was verified, confirmed and timeout was successfully executed by the treatment team. The patient was anesthetized with topical anesthesia and the Pentax EG-[id number] endoscope was introduced through the mouth and advanced to the stomach antrum. Retroflexed views revealed large amout of food The gastroscope was then slowly withdrawn and removed. Stomach filled with food and fluid-400 cc suctioned, aditional 200 cc in stomach pyloric stenosis , scope could not be passed NGT inserted. ADVERSE EVENTS: There were no complications. IMPRESSIONS: 1. Stomach filled with food and fluid-400 cc suctioned, aditional 200 cc in stomach pyloric stenosis , scope could not be passed NGT inserted 2. Retroflexed views revealed large amout of food RECOMMENDATIONS: Npo ngt to suction repeat egd with pyloric dilatation in am, to be scheduled under fluoro-patietn to be intubated PATIENT CONDITION: stable DISPOSITION: Inpatient REPEAT EXAM: Return 1 day EGD Sally Casillas MD eSigned: Sally Casillas MD 05/17/2017 10:46 AM cc:
--- NOTE | 2017-05-17 11:29 | HHI.PR ---
Subjective Remarks f/u; acute kidney injury/dysphagia in no acute distress. NG tube in place. has some swelling of the left arm. Objective Vitals Vital Signs Date Time Temp Pulse Resp B/P Pulse Ox O2 Delivery O2 Flow Rate FiO2 05/17/17 11:00 76 16 137/90 99 Room Air 05/17/17 10:45 73 16 123/85 100 Room Air 05/17/17 10:41 98.2 75 16 122/82 99 Nasal Cannula 3 05/17/17 09:19 70 18 99 05/17/17 08:00 97.3 86 18 125/84 96 05/17/17 04:00 97.5 80 18 125/84 96 05/17/17 04:00 Room Air 05/17/17 00:00 97.7 85 16 115/65 96 05/17/17 00:00 Room Air 05/16/17 20:00 79 05/16/17 20:00 Room Air 05/16/17 20:00 97.9 82 18 160/100 100 05/16/17 16:00 97.4 81 20 175/96 99 05/16/17 12:00 97.7 79 20 146/92 96 I/O 05/16/17 05/16/17 05/16/17 05/17/17 05/17/17 05/17/17 06:59 14:59 22:59 06:59 14:59 22:59 Intake Total 500 ml 480 ml 1078 ml 870 ml Output Total 800 ml 1300 ml Balance -300 ml 480 ml 1078 ml -430 ml Intake Oral 500 ml 480 ml 870 ml IV Total 1078 ml Output Urine Total 800 ml 1300 ml # Voids 5 # Bowel Movements 1 1 0 Result Diagram: 05/16/17 0538 05/16/17 0538 Objective Remarks GENERAL: This is a well-nourished, well-developed patient, in no apparent distress. CARDIOVASCULAR: Regular rate and regular rhythm without murmurs, gallops, or rubs. RESPIRATORY: Clear to auscultation. Breath sounds equal bilaterally. No wheezes , rales, or rhonchi. GASTROINTESTINAL: Abdomen soft, non-tender, nondistended. Normal, active bowel sounds MUSCULOSKELETAL: mild swelling of the left arm NEURO: Alert & Oriented x4 to person, place, time, situation. Moves all ext x4 Procedures EGD Medications and IVs Current Medications Clonidine (Catapres) 0.1 mg Q8HR PRN PO SBP> OR = 180, DBP> OR = 100 Last administered on 05/16/17 21:10; Start 05/15/17 at 15:45 Ondansetron HCl (Zofran Inj) 4 mg Q8HR PRN IV PUSH NAUSEA Last administered on 05/16/17 09:33; Start 05/15/17 at 15:45 Acetaminophen 650 mg 650 mg Q4H PRN PO FEVER/HEADACHE Last administered on 21:10; Start 05/15/17 at 15:45 Sodium Chloride (NS 1000 ml Inj) 1,000 ml @ 40 mls/hr Q24H ONCE IV Last administered on 05/15/17 16:10; Start 05/15/17 at 16:00; Stop 05/16/17 at 15:59 ; Status DC Pantoprazole Sodium (Protonix) 40 mg DAILY PO Last administered on 05/17/17 08: 33; Start 05/15/17 at 21:00 Amlodipine Besylate (Norvasc) 5 mg DAILY PO Last administered on 05/17/17 08:33 ; Start 05/16/17 at 10:45 Potassium Chloride (KCl) 20 meq ONCE ONCE PO Last administered on 05/16/17 10: 45; Start 05/16/17 at 10:45; Stop 05/16/17 at 10:46; Status DC Propofol (Diprivan 200 Mg/20 ml Inj) 200 mg STK-MED ONCE IV PUSH ; Start at 10:41; Stop 05/17/17 at 10:42; Status DC Miscellaneous Information ALL NURSING DEPARTME... UNSCH PRN .XX SEE LABEL COMMENTS; Start 05/17/17 at 10:40; Stop 05/18/17 at 10:39 A/P Assessment and Plan A/P - acute kidney injury superimposed on chronic kidney disease- s/p kidney biopsy ( [facility]) which showed ATN. renal function improving. continue IV fluid and monitor the renal function- nephrology following. -hypercalcemia; improved- continue IV fluid and monitor calcium level -dysphagia; s/p EGD which showed pyloric stenosis- EGD was repeated today- NG tube in place- NPO for now GI evaluation appreciated. -swelling of the left arm- will check venous doppler of the left upper extremity -anemia due to chronic disease vs dilutional- iron panel was reviewed- stool for blood pending- monitor H/H -hypertension-better controlled- stopped lisinopril- continue norvasc- clonidine prn- will monitor BP and adjust the regimen as needed. -mild hypokalemia; replaced. -DVT prophylaxis with SCD's Oseas Cardona MD May 17, 2017 11:29
[2017-05-17 13:03] LABS: HEMATOCRIT 27.2 % (35.0-46.0)
[2017-05-17 13:10] LABS: BICARBONATE 20.8 MEQ/L (21.0-32.0); MAGNESIUM 1.5 MG/DL (1.5-2.5); POTASSIUM 3.7 MEQ/L (3.5-5.1)
--- NOTE | 2017-05-17 18:02 | RADRPT ---
EXAM DATE/TIME: 05/17/2017 17:23 [place] COMPARISON: No previous studies available for comparison. INDICATIONS : Left arm swelling. MEDICAL HISTORY : Hypertension. Pancreatitis. Inflammatory bowel disease. Renal insufficiency. Nephrolithiasis. Urina ry tract infection. Cataracts. SURGICAL HISTORY : Tubal ligation. Hysterectomy. Dilation and curettage. ENCOUNTER: Initial ACUITY: 1 day PAIN SCORE: 6/10 LOCATION: Left arm. FINDINGS: There is spontaneous flow documented in the brachial, basilic, cephalic, axillary, and subclavian vei ns. The vessels are compressible and augmentation response is documented. No filling defects are se en. The flow is phasic with respiration. Direction of flow in the jugular vein is caudal. CONCLUSION: No DVT. Rodrigo Alonso MD on May 17, 2017 at 17:59 Board Certified Radiologist. This report was verified electronically.
--- NOTE | 2017-05-17 19:15 | HHI.NPPN ---
Subjective Additional Remarks Feels well, EGD earlier today, repeat EGD tomorrow planned Objective Data Data 05/16/17 05/17/17 19:00 07:00 Intake Total 1558 ml 870 ml Output Total 1300 ml Balance 1558 ml -430 ml Intake Oral 480 ml 870 ml IV Total 1078 ml Output Urine Total 1300 ml # Voids 5 # Bowel Movements 1 0 Vital Signs Date Time Temp Pulse Resp B/P Pulse Ox O2 Delivery O2 Flow Rate FiO2 05/17/17 16:00 97.4 81 18 157/91 99 05/17/17 12:13 98.3 74 18 154/95 98 05/17/17 11:00 76 16 137/90 99 Room Air 05/17/17 10:45 73 16 123/85 100 Room Air 05/17/17 10:41 98.2 75 16 122/82 99 Nasal Cannula 3 05/17/17 09:19 70 18 99 05/17/17 08:00 97.3 86 18 125/84 96 05/17/17 08:00 Room Air 05/17/17 04:00 97.5 80 18 125/84 96 05/17/17 04:00 Room Air 05/17/17 00:00 97.7 85 16 115/65 96 05/17/17 00:00 Room Air 05/16/17 20:00 79 05/16/17 20:00 Room Air 05/16/17 20:00 97.9 82 18 160/100 100 -: 05/17/17 1130 05/17/17 1130 Microbiology 05/17/17 Stool Occult Blood (CARL[facility]BERTO) - Final, Complete HEMOCCULT NEGATIVE Physical Exam General Appearance: Well Developed, Well Nourished, No Acute Distress Throat Throat Exam: Oral Mucosa [place] & Moist Neck Neck Exam: Neck Supple Pulmonary Resp Exam: Clear Bilaterally Cardiology CV Exam: Regular, Normal Sinus Rhythm, Good Perfusion Gastrointestinal/Abdomen GI Exam: Soft, Non-Tender, Bowel Sounds Present Genitourinary Exam: Clear Urine Musculoskeletal MS Exam: Joints Intact Integumentary Skin Exam: Dry, Intact Extremeties Extremities Exam: No Edema Neurologic Neuro Exam: Alert, Awake, Oriented, Speech Clear Assessment/Plan Problem List: (1) Acute renal failure Plan: Patient had a right kidney biopsy 05/14 and it showed the acute tubular necrosis: Likely viral syndrome and got dehydrated - now is recovering continue to follow BMP Creatinine was 5, improving now: 3.6 -> 3.0. Apparent baseline creatinine in the 2s per patient (Creatinine 0.99 11/2016). Not on IVFs NPO with plan for repeat EGD tomorrow Given potassium earlier for hypokalemia, K+ stable now Avoid nephrotoxins Avoid dye studies or gadolinium She should avoid calcium supplements (2) Viral syndrome Plan: Continue to monitor (3) Hypercalcemia Plan: Resolved (4) Pyloric stenosis Plan: EGD earlier today - planned repeat EGD with GI tomorrow, continue to monitor. Problem Qualifiers (1) Acute renal failure: Qualified Code: N17.9 - Acute renal failure, unspecified acute renal failure type Elia Miranda MD May 17, 2017 19:15
[2017-05-17] MEDS: ACETAMINOPHEN 325 MG TAB PO PRN (21:14)
[2017-05-17] MEDS ORDERED: ACETAMINOPHEN 650 MG/20.3 ML UDC PO ONE (22:15)
[2017-05-18] VITALS (7 sets, daily range): BP systolic 135–159; BP diastolic 84–95; PULSE 69–96; RESP 16–20; TEMP 96.9–97.7; O2SAT 99
[2017-05-18 08:28] LABS: AUTOMATED NEUTROPHIL # 4.7 TH/MM3 (1.8-7.7); BASOPHIL # 0.1 TH/MM3 (0-0.2); BASOPHIL % 1.4 % (0.0-2.0); EOSINOPHIL # 0.2 TH/MM3 (0-0.4); EOSINOPHIL % 3.1 % (0.0-4.0); HEMATOCRIT 28.6 % (35.0-46.0); HEMO FLAGS DIFF FINAL; LYMPH % 26.5 % (9.0-44.0); MEAN CORPUSCULAR HEMOGLOBIN 32.6 PG (27.0-34.0); MEAN CORPUSCULAR HGB CONC 33.3 % (32.0-36.0); MONO % 7.2 % (0.0-8.0); NEUT % 61.8 % (16.0-70.0); PLATELET COUNT 456 TH/MM3 (150-450); RED BLOOD COUNT 2.92 MIL/MM3 (4.00-5.30); RED CELL DISTRIBUTION WIDTH 12.9 % (11.6-17.2); WHITE BLOOD COUNT 7.6 TH/MM3 (4.0-11.0)
[2017-05-18] MEDS: PANTOPRAZOLE SOD 40 MG DELAYED RELEASE TAB PO SCH (08:29)
[2017-05-18] MEDS: amLODIPine BESYLATE 5 MG TAB PO SCH (08:29)
[2017-05-18 08:48] LABS: BICARBONATE 23.5 MEQ/L (21.0-32.0); POTASSIUM 3.1 MEQ/L (3.5-5.1)
[2017-05-18] MEDS ORDERED: DEXTROSE 50% IN WATER 50 ML SYRINGE ONE (08:59)
[2017-05-18] MEDS: DEXTROSE 50% IN WATER 50 ML SYRINGE IV PUSH ONE ×2 (09:00→09:15)
[2017-05-18] MEDS ORDERED: fentaNYL CITRATE 250 MCG/5 ML AMP ONE (11:44)
[2017-05-18] MEDS ORDERED: ONDANSETRON HCL 4 MG/2 ML VIAL IV PUSH ONE ×2 (12:08)
--- NOTE | 2017-05-18 12:12 | HHI.PR ---
Subjective Remarks in no acute distress. noted that had an episode of hypoglycemia earlier this morning although she doesn't report any new symptoms. Objective Vitals Vital Signs Date Time Temp Pulse Resp B/P Pulse Ox O2 Delivery O2 Flow Rate FiO2 05/18/17 09:00 69 05/18/17 08:00 Room Air 05/18/17 08:00 97.4 96 18 135/84 99 05/18/17 04:00 97.3 75 16 149/87 99 05/18/17 04:00 Room Air 05/18/17 00:00 97.7 79 18 159/86 99 05/18/17 00:00 Room Air 05/17/17 20:20 88 05/17/17 20:00 Room Air 05/17/17 20:00 97.4 99 18 151/81 97 05/17/17 16:00 97.4 81 18 157/91 99 05/17/17 12:13 98.3 74 18 154/95 98 I/O 05/17/17 05/17/17 05/17/17 05/18/17 05/18/17 05/18/17 07:00 15:00 23:00 07:00 15:00 23:00 Intake Total 870 ml 0 ml 0 ml 0 ml Output Total 1300 ml 400 ml Balance -430 ml 0 ml -400 ml 0 ml Intake Oral 870 ml 0 ml 0 ml 0 ml Output Urine Total 1300 ml 400 ml # Voids 3 2 # Bowel Movements 0 0 1 1 Result Diagram: 05/18/17 0650 05/18/17 0650 Imaging Last Impressions Upper Extremity Ultrasound 05/17/17 0000 Signed Impressions: Service Date/Time: Wednesday, May 17, 2017 17:23 - CONCLUSION: No DVT. Rodrigo Alonso MD Objective Remarks GENERAL: This is a well-nourished, well-developed patient, in no apparent distress. CARDIOVASCULAR: Regular rate and regular rhythm without murmurs, gallops, or rubs. RESPIRATORY: Clear to auscultation. Breath sounds equal bilaterally. No wheezes , rales, or rhonchi. GASTROINTESTINAL: Abdomen soft, non-tender, nondistended. Normal, active bowel sounds MUSCULOSKELETAL: mild swelling of the left arm NEURO: Alert & Oriented x4 to person, place, time, situation. Moves all ext x4 Procedures EGD Medications and IVs Current Medications Clonidine (Catapres) 0.1 mg Q8HR PRN PO SBP> OR = 180, DBP> OR = 100 Last administered on 05/16/17 21:10; Start 05/15/17 at 15:45 Ondansetron HCl (Zofran Inj) 4 mg Q8HR PRN IV PUSH NAUSEA Last administered on 05/16/17 09:33; Start 05/15/17 at 15:45 Acetaminophen 650 mg 650 mg Q4H PRN PO FEVER/HEADACHE Last administered on 21:14; Start 05/15/17 at 15:45 Sodium Chloride (NS 1000 ml Inj) 1,000 ml @ 40 mls/hr Q24H ONCE IV Last administered on 05/15/17 16:10; Start 05/15/17 at 16:00; Stop 05/16/17 at 15:59 ; Status DC Pantoprazole Sodium (Protonix) 40 mg DAILY PO Last administered on 05/18/17 08: 29; Start 05/15/17 at 21:00 Amlodipine Besylate (Norvasc) 5 mg DAILY PO Last administered on 05/18/17 08:29 ; Start 05/16/17 at 10:45 Potassium Chloride (KCl) 20 meq ONCE ONCE PO Last administered on 05/16/17 10: 45; Start 05/16/17 at 10:45; Stop 05/16/17 at 10:46; Status DC Propofol (Diprivan 200 Mg/20 ml Inj) 200 mg STK-MED ONCE IV PUSH ; Start at 10:41; Stop 05/17/17 at 10:42; Status DC Miscellaneous Information ALL NURSING DEPARTME... UNSCH PRN .XX SEE LABEL COMMENTS; Start 05/17/17 at 10:40; Stop 05/18/17 at 10:39; Status DC Acetaminophen (Tylenol 650 Mg/ 20 ml Liq) 650 mg ONCE ONCE PO Last administered on 05/17/17 22:31; Start 05/17/17 at 22:15; Stop 05/17/17 at 22:20; Status DC Dextrose (D50w (Syr) Inj) 50 ml STK-MED ONCE .ROUTE ; Start 05/18/17 at 08:59; Stop 05/18/17 at 09:00; Status DC Dextrose (D50w (Syr) Inj) 50 ml NOW ONCE IV PUSH Last administered on t 09:00; Start 05/18/17 at 09:15; Stop 05/18/17 at 09:16; Status DC Fentanyl Citrate (fentaNYL INJ) 250 mcg STK-MED ONCE .ROUTE ; Start 05/18/17 at 11:44; Stop 05/18/17 at 11:45; Status DC A/P Assessment and Plan A/P - acute kidney injury superimposed on chronic kidney disease- s/p kidney biopsy ( [facility]) which showed ATN. renal function improving. continue IV fluid and monitor the renal function- nephrology following. -hypercalcemia; improved- continue IV fluid and monitor calcium level -dysphagia; s/p EGD which showed pyloric stenosis- - NG tube in place- NPO for now plan for EGD with pyloric dilatation today. GI evaluation appreciated. -hypoglycemia; will start D5W and continue to monitor the accu-checks. -swelling of the left arm- no DVT on venous doppler. -anemia due to chronic disease vs dilutional- iron panel was reviewed- stool for blood negative- monitor H/H -hypertension-better controlled- stopped lisinopril- continue norvasc- clonidine prn- will monitor BP and adjust the regimen as needed. -mild hypokalemia; will replace as needed. -DVT prophylaxis with SCD's Oseas Cardona MD May 18, 2017 12:12
[2017-05-18] MEDS ORDERED: PROPOFOL 200 MG/20 ML AMP IV ONE ×2 (12:21→12:35)
--- NOTE | 2017-05-18 12:40 | HHI.GIFU ---
Subjective Remarks Immediate postop note: EGD with pyloric dilatation with biospy Indication: Pyloric stenosis with gastric obstruction Meds: GET Findings: NGT removed. Esophagus inflamed distal esophagus consistent with GERD Stomach: copious gastric contents. Could not be aspirated. Pylorus strictured. Scope would not pass. Pyloric dilatation performed with balloon dilator 16mm 17mm without apparent complication. After dilatation scope passed into the duodenum. There is a pyloric channel ulcer. Duodenum: normal, but food present. Objective Vitals I&O Vital Signs Date Time Temp Pulse Resp B/P Pulse Ox O2 Delivery O2 Flow Rate FiO2 05/18/17 09:00 69 05/18/17 08:00 Room Air 05/18/17 08:00 97.4 96 18 135/84 99 05/18/17 04:00 97.3 75 16 149/87 99 05/18/17 04:00 Room Air 05/18/17 00:00 97.7 79 18 159/86 99 05/18/17 00:00 Room Air 05/17/17 20:20 88 05/17/17 20:00 Room Air 05/17/17 20:00 97.4 99 18 151/81 97 05/17/17 16:00 97.4 81 18 157/91 99 I/O 05/17/17 05/17/17 05/17/17 05/18/17 05/18/17 05/18/17 07:00 15:00 23:00 07:00 15:00 23:00 Intake Total 870 ml 0 ml 0 ml 0 ml Output Total 1300 ml 400 ml Balance -430 ml 0 ml -400 ml 0 ml Intake Oral 870 ml 0 ml 0 ml 0 ml Output Urine Total 1300 ml 400 ml # Voids 3 2 # Bowel Movements 0 0 1 1 Laboratory Laboratory Tests Test 05/18/17 06:50 White Blood Count 7.6 Red Blood Count 2.92 Hemoglobin 9.5 Hematocrit 28.6 Mean Corpuscular Volume 98.0 Mean Corpuscular Hemoglobin 32.6 Mean Corpuscular Hemoglobin 33.3 Concent Red Cell Distribution Width 12.9 Platelet Count 456 Mean Platelet Volume 8.9 Neutrophils (%) (Auto) 61.8 Lymphocytes (%) (Auto) 26.5 Monocytes (%) (Auto) 7.2 Eosinophils (%) (Auto) 3.1 Basophils (%) (Auto) 1.4 Neutrophils # (Auto) 4.7 Lymphocytes # (Auto) 2.0 Monocytes # (Auto) 0.5 Eosinophils # (Auto) 0.2 Basophils # (Auto) 0.1 CBC Comment DIFF FINAL Differential Comment Sodium Level 144 Potassium Level 3.1 Chloride Level 111 Carbon Dioxide Level 23.5 Anion Gap 10 Blood Urea Nitrogen 21 Creatinine 2.72 Estimat Glomerular Filtration 19 Rate Random Glucose 44 Calcium Level 9.4 Date/Time Procedure Status Source Growth 05/17/17 09:15 Stool Occult Blood ([facility]ERT[facility]) - Final Complete Stool Stool HEMOCCULT NEGATIVE Physical Exam HEENT: Pupils round and reactive to light; normocephalic; atraumatic; no jaundice. Throat is clear. NECK: Neck is supple, no JVD, no lymphadenopathy. CHEST: Chest is clear to auscultation and percussion. CARDIAC: Regular rate and rhythm with no murmur gallop or rubs. ABDOMEN: Soft, nondistended, nontender; no hepatosplenomegaly; bowel sounds are present in all four quadrants. EXTREMITIES: No clubbing, cyanosis, or edema. SKIN: Normal; no rash; no jaundice. 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 Assessment and Plan Plan Impression: Pyloric stenosis. Pyloric dilatation performed to 17mm without apparent complication Pyloric channel ulcer. Antral gastritis biopsy taken Duodenum: normal Residual food in the stomach Recommendation: Protonix drip. Clear liquid diet. Advance diet tomorrow to full liquid. Await biopsy for possible H Pylori. Eros Matt MD May 18, 2017 12:40
[2017-05-18] MEDS ORDERED: DO NOT ADM ANY ANTICOAGULANT DRUGS PRN (12:48)
[2017-05-18] MEDS ORDERED: PANTOPRAZOLE INJ 80 MG in SODIUM CHLORIDE 0.9% INJ 35 ML IV ONE (13:00)
[2017-05-18] MEDS ORDERED: PANTOPRAZOLE INJ 80 MG in SODIUM CHLORIDE 0.9% INJ 100 ML IV SCH (13:00)
[2017-05-18] MEDS: DEXT 5%-NACL 0.9% 1000 ML INJ 1,000 ML IV SCH (13:00)
[2017-05-18] MEDS ORDERED: DEXTROSE 50% IN WATER 50 ML VIAL(D50) IV PRN (15:30)
[2017-05-18] MEDS ORDERED: DEXTROSE 50% IN WATER 50 ML VIAL(D50) IV ONE (15:30)
[2017-05-18] MEDS ORDERED: POTASSIUM CHLOR 10 MEQ PREMIX 100 ML IV ONE (18:00)
--- NOTE | 2017-05-18 20:27 | HHI.NPPN ---
Subjective Additional Remarks Feels well, EGD done Objective Data Data 05/17/17 05/18/17 19:00 07:00 Intake Total 0 ml 0 ml Output Total 400 ml Balance 0 ml -400 ml Intake Oral 0 ml 0 ml Output Urine Total 400 ml # Voids 3 2 # Bowel Movements 0 2 Vital Signs Date Time Temp Pulse Resp B/P Pulse Ox O2 Delivery O2 Flow Rate FiO2 05/18/17 16:00 96.9 76 20 153/90 99 05/18/17 14:00 97.7 70 20 147/92 97 Nasal Cannula 2 05/18/17 13:45 80 22 157/93 98 Nasal Cannula 2 05/18/17 13:30 63 22 141/81 98 Nasal Cannula 2 05/18/17 13:15 81 22 159/79 98 Nasal Cannula 2 05/18/17 13:00 97 22 129/89 97 Nasal Cannula 2 05/18/17 12:40 97.7 97 22 140/74 91 Nasal Cannula 2 05/18/17 09:00 69 05/18/17 08:00 Room Air 05/18/17 08:00 97.4 96 18 135/84 99 05/18/17 04:00 97.3 75 16 149/87 99 05/18/17 04:00 Room Air 05/18/17 00:00 97.7 79 18 159/86 99 05/18/17 00:00 Room Air -: 05/18/17 0650 05/18/17 0650 Physical Exam General Appearance: Well Developed, Well Nourished, No Acute Distress Throat Throat Exam: Oral Mucosa [place] & Moist Neck Neck Exam: Neck Supple Pulmonary Resp Exam: Clear Bilaterally Cardiology CV Exam: Regular, Normal Sinus Rhythm, Good Perfusion Gastrointestinal/Abdomen GI Exam: Soft, Non-Tender, Bowel Sounds Present Genitourinary Exam: Clear Urine Musculoskeletal MS Exam: Joints Intact Integumentary Skin Exam: Dry, Intact Extremeties Extremities Exam: No Edema Neurologic Neuro Exam: Alert, Awake, Oriented, Speech Clear Assessment/Plan Problem List: (1) Acute renal failure Plan: Patient had a right kidney biopsy 05/14 and it showed the acute tubular necrosis: Likely viral syndrome and got dehydrated - now is recovering continue to follow BMP Creatinine was 5, improving now: 3.6 -> 3.0 -> 2.7 k low replaced. Apparent baseline creatinine in the 2s per patient (Creatinine 0.99 11/2016). Avoid nephrotoxins Avoid dye studies or gadolinium She should avoid calcium supplements (2) Viral syndrome Plan: Continue to monitor (3) Hypercalcemia Plan: Resolved (4) Pyloric stenosis Plan: EGD earlier today - planned repeat EGD with GI tomorrow, continue to monitor. Problem Qualifiers (1) Acute renal failure: Qualified Code: N17.9 - Acute renal failure, unspecified acute renal failure type Nguyen Downing MD May 18, 2017 20:27
[2017-05-18] MEDS: ACETAMINOPHEN 325 MG TAB PO PRN (21:25)
[2017-05-18] MEDS: PANTOPRAZOLE INJ 80 MG in SODIUM CHLORIDE 0.9% INJ 100 ML IV SCH (21:26)
[2017-05-19] VITALS (7 sets, daily range): BP systolic 132–154; BP diastolic 77–97; PULSE 72–84; RESP 18–20; TEMP 97.2–98.4; O2SAT 95–100
[2017-05-19 07:49] LABS: BICARBONATE 18.8 MEQ/L (21.0-32.0); POTASSIUM 3.6 MEQ/L (3.5-5.1)
[2017-05-19] MEDS: amLODIPine BESYLATE 5 MG TAB PO SCH (08:29)
[2017-05-19] MEDS: PANTOPRAZOLE INJ 80 MG in SODIUM CHLORIDE 0.9% INJ 100 ML IV SCH ×2 (08:31→23:51)
[2017-05-19] MEDS: ONDANSETRON HCL 4 MG/2 ML VIAL IV PUSH PRN (08:32)
[2017-05-19] MEDS: DEXT 5%-NACL 0.9% 1000 ML INJ 1,000 ML IV SCH ×2 (08:34→23:52)
[2017-05-19] MEDS: MULTIVITAMINS/IRON/MINERALS CHEWABLE TAB CHEW SCH (12:45)
--- NOTE | 2017-05-19 12:46 | HHI.PR ---
Subjective Remarks Patient seen and examined this morning. Afebrile vital signs stable. Patient showing signs of anemia per labs, she has been complaining of restless leg syndrome during the night. Her creatinine is 2.25 down from previous labs. Explained to her that we are waiting on the results of the stomach biopsy. Patient wishes to progress her diet and agreed to do so. Objective Vitals Vital Signs Date Time Temp Pulse Resp B/P Pulse Ox O2 Delivery O2 Flow Rate FiO2 05/19/17 08:00 97.2 84 20 132/97 98 05/19/17 04:00 98.0 83 18 145/89 95 05/19/17 04:00 Room Air 05/19/17 00:00 Room Air 05/19/17 00:00 98.4 82 18 143/90 99 05/18/17 20:00 97.6 73 18 159/95 99 05/18/17 20:00 Room Air 05/18/17 18:30 75 05/18/17 16:00 96.9 76 20 153/90 99 05/18/17 14:00 97.7 70 20 147/92 97 Nasal Cannula 2 05/18/17 13:45 80 22 157/93 98 Nasal Cannula 2 05/18/17 13:30 63 22 141/81 98 Nasal Cannula 2 05/18/17 13:15 81 22 159/79 98 Nasal Cannula 2 05/18/17 13:00 97 22 129/89 97 Nasal Cannula 2 05/18/17 12:40 97.7 97 22 140/74 91 Nasal Cannula 2 I/O 05/18/17 05/18/17 05/18/17 05/19/17 05/19/17 05/19/17 07:00 15:00 23:00 07:00 15:00 23:00 Intake Total 0 ml 640 ml 882 ml 734 ml Output Total 200 ml Balance 0 ml 640 ml 882 ml 534 ml Intake Oral 0 ml 0 ml 450 ml 240 ml IV Total 140 ml 432 ml 494 ml Other 500 ml Output Urine Total 200 ml # Voids 2 2 1 # Bowel Movements 1 0 Result Diagram: 05/18/17 0650 05/19/17 0640 Imaging Last Impressions Upper Extremity Ultrasound 05/17/17 0000 Signed Impressions: Service Date/Time: Wednesday, May 17, 2017 17:23 - CONCLUSION: No DVT. Rodrigo Alosno MD Procedures EGD Medications and IVs Current Medications Medications (Trade) Dose Ordered Sig/Nelia Route Start Time Stop Time Status Last Admin (Catapres) 0.1 mg Q8HR PRN PO 05/15/17 15:45 05/16/17 21:10 (Zofran Inj) 4 mg Q8HR PRN IV PUSH 05/15/17 15:45 05/19/17 08:32 (Tylenol) 650 mg Q4H PRN PO 05/15/17 15:45 05/18/17 21:25 Amlodipine Besylate 5 mg 5 mg DAILY PO 05/16/17 10:45 05/19/17 08:29 (D5W-NS 1000 ml Inj) 1,000 ml @ 60 mls/hr [id number] IV 05/18/17 13:00 05/19/17 08:34 Miscellaneous Information ALL NURSING DEPARTME... UNSCH PRN .XX 05/18/17 12:48 05/19/17 12:47 (Protonix Inj/NS Inj) 100 ml @ 10 mls/hr Q10H IV 05/18/17 23:00 05/19/17 08:31 A/P Problem List: (1) Renal failure ICD Code: N19 Status: Acute (2) Pyloric stenosis ICD Code: K31.1 Status: Acute (3) Dysphagia ICD Code: R13.10 Status: Acute (4) HTN (hypertension) ICD Code: I10 Status: Acute (5) Anemia ICD Code: D64.9 Status: Acute Assessment and Plan This a 46-year-old female with past medical history significant for hypertension. She is admitted for dysphagia due to pyloric stenosis and acute kidney injury acute kidney injury superimposed on chronic kidney disease- s/p kidney biopsy ( [facility]) which showed ATN. - renal function improving. - continue IV fluid and monitor the renal function- - nephrology following. dysphagia due to Pyloric Stenosis; s/p EGD with pyloric dilation - Awaiting results of stomach biopsy - GI consulted, recommendations appreciated - D5 plus NS at 60 miles per hour, increasing diet at this time anticipate stopping fluids as time progresses anemia due to chronic disease vs dilutional- iron panel was reviewed- stool for blood negative- monitor H/H, patient complaining of restless leg syndrome -Iron supplementation started hypertension-better controlled- stopped lisinopril - continue norvasc- - clonidine prn- will monitor BP and adjust the regimen as needed. DVT prophylaxis with SCD's GI prophylaxis with IV pantoprazole Problem Qualifiers (1) Renal failure: Phi Galloway MD R2 May 19, 2017 12:46
[2017-05-19] MEDS: ACETAMINOPHEN 325 MG TAB PO PRN (12:53)
--- NOTE | 2017-05-19 16:19 | HHI.NPPN ---
Subjective Additional Remarks Feels well, EGD done Objective Data Data 05/18/17 05/19/17 19:00 07:00 Intake Total 640 ml 1616 ml Output Total 200 ml Balance 640 ml 1416 ml Intake Oral 0 ml 690 ml IV Total 140 ml 926 ml Other 500 ml Output Urine Total 200 ml # Voids 2 1 # Bowel Movements 0 Vital Signs Date Time Temp Pulse Resp B/P Pulse Ox O2 Delivery O2 Flow Rate FiO2 05/19/17 12:00 97.2 84 20 132/97 98 05/19/17 12:00 97.8 72 20 142/87 99 05/19/17 09:00 78 05/19/17 08:00 97.2 84 20 132/97 98 05/19/17 07:00 Room Air 05/19/17 04:00 98.0 83 18 145/89 95 05/19/17 04:00 Room Air 05/19/17 00:00 Room Air 05/19/17 00:00 98.4 82 18 143/90 99 05/18/17 20:00 97.6 73 18 159/95 99 05/18/17 20:00 Room Air 05/18/17 18:30 75 -: 05/18/17 0650 05/19/17 0640 Physical Exam General Appearance: Well Developed, Well Nourished, No Acute Distress Throat Throat Exam: Oral Mucosa [place] & Moist Neck Neck Exam: Neck Supple Pulmonary Resp Exam: Clear Bilaterally Cardiology CV Exam: Regular, Normal Sinus Rhythm, Good Perfusion Gastrointestinal/Abdomen GI Exam: Soft, Non-Tender, Bowel Sounds Present Genitourinary Exam: Clear Urine Musculoskeletal MS Exam: Joints Intact Integumentary Skin Exam: Dry, Intact Extremeties Extremities Exam: No Edema Neurologic Neuro Exam: Alert, Awake, Oriented, Speech Clear Assessment/Plan Problem List: (1) Acute renal failure Plan: Patient had a right kidney biopsy 05/14 and it showed the acute tubular necrosis: Likely viral syndrome and got dehydrated - now is recovering continue to follow BMP Creatinine was 5, improving now: 3.6 -> 3.0 -> 2.7--> 2.2 k low replaced. Apparent baseline creatinine in the 2s per patient (Creatinine 0.99 11/2016). Avoid nephrotoxins Avoid dye studies or gadolinium She should avoid calcium supplements Dr. Barr can follow in am (2) Viral syndrome Plan: Continue to monitor (3) Hypercalcemia Plan: Resolved (4) Pyloric stenosis Plan: EGD earlier today - planned repeat EGD with GI tomorrow, continue to monitor. Problem Qualifiers (1) Acute renal failure: Qualified Code: N17.9 - Acute renal failure, unspecified acute renal failure type Nguyen Downing MD May 19, 2017 16:19
--- NOTE | 2017-05-19 18:22 | MR ---
cc: QUIN CARDONA MD, HAROLD H. MD DATE 05/18/2017 PROCEDURE Esophagogastroduodenoscopy with pyloric dilatation with biopsy. INDICATION Pyloric stenosis with gastric obstruction REFERRING PHYSICIAN Dr. Cardona PROCEDURE IN DETAIL After informed consent was obtained, the patient placed in the supine position. She was sedated using general endotracheal intubation to protect her airway. She was then turned into the left side down position. The nasogastric tube was removed. The Pentax video gastroscope was inserted in the oropharynx and advanced down through the esophagus into the stomach. There were copious gastric contents present there. They could not be aspirated because they were too thick and fibrous. The scope was advanced down through this area into the antrum. The pylorus could be identified, but it was strictured and the scope would not pass through. Using a 16, 17 and 18 mm balloon dilating catheter, the orifice of the pylorus was cannulated fairly easily and the balloon could be advanced in group home allowing dilatation. The dilator was inflated to 16 mm. It was then deflated and pulled back into the scope. The scope was then easily advanced across the pylorus and into the duodenum. There was no apparent complication. The scope was advanced deeply into the duodenum, was then pulled back and the dilator was again advanced this time into the duodenum itself and pulled back across the pylorus again. It was dilated then to 16 mm and 17 mm without apparent complication. The balloon dilator was then deflated and removed. The scope was again advanced into the duodenum and it was examined carefully. There was apparent pyloric channel ulceration. The scope was then withdrawn back into the antrum. Two biopsies were obtained from the antral tissue to check for H. Pylori gastritis. The scope was then retroflexed demonstrating copious liquid food and solid food in the fundus of the stomach. The scope was then straightened and pulled out through the esophagus and the procedure was terminated. She tolerated the procedure well and was extubated and returned to the recovery area in good condition. FINDINGS 1. The esophagus showed inflamed distal esophagus consistent with gastroesophageal reflux disease. 2. In the stomach, there were copious gastric contents that could not be aspirated. 3. The pylorus was strictured and it was dilated to 16 and 17 mm as described above without apparent complication. 4. There appeared to be a pyloric channel ulcer. 5. There is mild gastritis and biopsies were taken from the gastric antrum to check for H. Pylori gastritis. 6. The duodenum was normal, but there was food present. IMPRESSION 1. Pyloric channel ulcer causing pyloric stenosis status post balloon dilatation to 17 mm. 2. Gastroesophageal reflux disease. 3. Gastritis, possible H. Pylori gastritis. RECOMMENDATIONS 1. The patient should be on a clear liquid diet. 2. The patient should receive proton pump inhibitor intensive to help heal up the pyloric channel ulcer without further stricturing. We will start Protonix 80 mg IV bolus and an 8 mg per hour drip. 3. Await the biopsy results. 4. If she tolerates clear liquids today then tomorrow advance to full liquid diet. Eros Matt MD [facility]/ /12:50 PM /6:08 PM
--- NOTE | 2017-05-19 19:32 | HHI.GIFU ---
Subjective Remarks Pt reports having some abdominal pain and back pain. she had pyloric dilatation yesterday. No apparent complication at that time. She is on protonix drip. Eating regular food now. I explained how to help stomach empty by lying on right side placing pylorus in the low position. She will try. Objective Vitals I&O Vital Signs Date Time Temp Pulse Resp B/P Pulse Ox O2 Delivery O2 Flow Rate FiO2 05/19/17 16:00 97.4 74 20 152/83 100 05/19/17 12:00 97.2 84 20 132/97 98 05/19/17 12:00 97.8 72 20 142/87 99 05/19/17 09:00 78 05/19/17 08:00 97.2 84 20 132/97 98 05/19/17 07:00 Room Air 05/19/17 04:00 98.0 83 18 145/89 95 05/19/17 04:00 Room Air 05/19/17 00:00 Room Air 05/19/17 00:00 98.4 82 18 143/90 99 05/18/17 20:00 97.6 73 18 159/95 99 05/18/17 20:00 Room Air I/O 05/18/17 05/18/17 05/18/17 05/19/17 05/19/17 05/19/17 07:00 15:00 23:00 07:00 15:00 23:00 Intake Total 0 ml 640 ml 882 ml 734 ml 1029 ml Output Total 200 ml Balance 0 ml 640 ml 882 ml 534 ml 1029 ml Intake Oral 0 ml 0 ml 450 ml 240 ml 480 ml IV Total 140 ml 432 ml 494 ml 549 ml Other 500 ml Output Urine Total 200 ml # Voids 2 2 1 3 # Bowel Movements 1 0 0 Laboratory Laboratory Tests Test 05/19/17 06:40 Sodium Level 142 Potassium Level 3.6 Chloride Level 114 Carbon Dioxide Level 18.8 Anion Gap 9 Blood Urea Nitrogen 16 Creatinine 2.25 Estimat Glomerular Filtration 23 Rate Random Glucose 87 Calcium Level 8.5 Date/Time Procedure Status Source Growth 05/17/17 09:15 Stool Occult Blood ([facility]ERT[facility]) - Final Complete Stool Stool HEMOCCULT NEGATIVE Physical Exam HEENT: Pupils round and reactive to light; normocephalic; atraumatic; no jaundice. Throat is clear. NECK: Neck is supple, no JVD, no lymphadenopathy. CHEST: Chest is clear to auscultation and percussion. CARDIAC: Regular rate and rhythm with no murmur gallop or rubs. ABDOMEN: Soft, nondistended, nontender; no hepatosplenomegaly; bowel sounds are present in all four quadrants. EXTREMITIES: No clubbing, cyanosis, or edema. SKIN: Normal; no rash; no jaundice. 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 Assessment and Plan Plan Impression: Pyloric stenosis. Pyloric dilatation performed to 17mm without apparent complication Pyloric channel ulcer. Antral gastritis biopsy taken Duodenum: normal Residual food in the stomach Recommendation: Protonix drip. Clear liquid diet. Advance diet tomorrow to full liquid. Await biopsy for possible H Pylori. Eros Matt MD May 19, 2017 19:32
[2017-05-20] VITALS (9 sets, daily range): BP systolic 140–167; BP diastolic 75–107; PULSE 74–93; RESP 17–20; TEMP 97.5–98; O2SAT 94–100
[2017-05-20] MEDS: PANTOPRAZOLE INJ 80 MG in SODIUM CHLORIDE 0.9% INJ 100 ML IV SCH ×2 (05:00→15:47)
--- NOTE | 2017-05-20 08:20 | HHI.PR ---
Subjective Remarks This is a pleasant 46 y/o Female with CKD, Hypertension, status post Kidney biopsy at [facility] came to [facility] with abdominal pain, Nausea, and vomit. has restless leg syndrome, creatinine improving, Objective Vital Signs Date Time Temp Pulse Resp B/P Pulse Ox O2 Delivery O2 Flow Rate FiO2 05/20/17 04:00 97.8 84 17 142/82 94 05/20/17 00:00 97.5 89 17 140/75 96 05/19/17 23:42 Room Air 05/19/17 20:00 97.2 75 18 154/77 100 05/19/17 16:00 97.4 74 20 152/83 100 05/19/17 12:00 97.2 84 20 132/97 98 05/19/17 12:00 97.8 72 20 142/87 99 05/19/17 09:00 78 I/O 05/19/17 05/19/17 05/19/17 05/20/17 05/20/17 05/20/17 07:00 15:00 23:00 07:00 15:00 23:00 Intake Total 734 ml 1029 ml 200 ml 200 ml Output Total 200 ml Balance 534 ml 1029 ml 200 ml 200 ml Intake Oral 240 ml 480 ml 200 ml 200 ml IV Total 494 ml 549 ml Output Urine Total 200 ml # Voids 3 2 # Bowel Movements 0 Result Diagram: 05/18/17 0650 05/19/17 0640 Imaging Last Impressions Upper Extremity Ultrasound 05/17/17 0000 Signed Impressions: Service Date/Time: Wednesday, May 17, 2017 17:23 - CONCLUSION: No DVT. Rodrigo Alonso MD Procedures None. Other Results Laboratory Tests Test 05/16/17 05/17/17 05/18/17 05/19/17 05:38 11:30 06:50 06:40 Iron Level 76 MCG/DL Total Iron Binding Capacity 262 MCG/DL Percent Iron Saturation 29.0 % Phosphorus Level 3.2 MG/DL Magnesium Level 1.5 MG/DL White Blood Count 7.6 TH/MM3 Red Blood Count 2.92 MIL/MM3 Hemoglobin 9.5 GM/DL Hematocrit 28.6 % Mean Corpuscular Volume 98.0 FL Mean Corpuscular Hemoglobin 32.6 PG Mean Corpuscular Hemoglobin 33.3 % Concent Red Cell Distribution Width 12.9 % Platelet Count 456 TH/MM3 Mean Platelet Volume 8.9 FL Neutrophils (%) (Auto) 61.8 % Lymphocytes (%) (Auto) 26.5 % Monocytes (%) (Auto) 7.2 % Eosinophils (%) (Auto) 3.1 % Basophils (%) (Auto) 1.4 % Neutrophils # (Auto) 4.7 TH/MM3 Lymphocytes # (Auto) 2.0 TH/MM3 Monocytes # (Auto) 0.5 TH/MM3 Eosinophils # (Auto) 0.2 TH/MM3 Basophils # (Auto) 0.1 TH/MM3 CBC Comment DIFF FINAL Differential Comment Sodium Level 142 MEQ/L Potassium Level 3.6 MEQ/L Chloride Level 114 MEQ/L Carbon Dioxide Level 18.8 MEQ/L Anion Gap 9 MEQ/L Blood Urea Nitrogen 16 MG/DL Creatinine 2.25 MG/DL Estimat Glomerular Filtration 23 ML/MIN Rate Random Glucose 87 MG/DL Calcium Level 8.5 MG/DL Objective Remarks GENERAL: no acute distress. SKIN: Warm and dry. HEAD: Atraumatic. Normocephalic. EYES: Pupils equal and round. No scleral icterus. No injection or drainage. ENT: No nasal bleeding or discharge. Mucous membranes pink and moist. NECK: Trachea midline. No JVD. CARDIOVASCULAR: Regular rate and rhythm. RESPIRATORY: No accessory muscle use. Clear to auscultation. Breath sounds equal bilaterally. GASTROINTESTINAL: Abdomen soft, non-tender, nondistended. Hepatic and splenic margins not palpable. MUSCULOSKELETAL: Extremities without clubbing, cyanosis, Edema 2+ NEUROLOGICAL: Awake and alert. No focal deficits. PSYCHIATRIC: Appropriate mood and affect; insight and judgment normal. Medications and IVs Current Medications Medications (Trade) Dose Ordered Sig/Nelia Route Start Time Stop Time Status Last Admin (Catapres) 0.1 mg Q8HR PRN PO 05/15/17 15:45 05/16/17 21:10 (Zofran Inj) 4 mg Q8HR PRN IV PUSH 05/15/17 15:45 05/19/17 08:32 (Tylenol) 650 mg Q4H PRN PO 05/15/17 15:45 05/19/17 12:53 Amlodipine Besylate 5 mg 5 mg DAILY PO 05/16/17 10:45 05/19/17 08:29 Dextrose/Sodium Chloride 1,000 ml @ 60 mls/hr [id number] IV 05/18/17 13:00 05/19/17 23:52 (Protonix Inj/NS Inj) 100 ml @ 10 mls/hr Q10H IV 05/18/17 23:00 05/19/17 23:51 (Flintstones Complete) 1 tab DAILY CHEW 05/19/17 12:45 05/19/17 12:45 A/P Assessment and Plan This a 46-year-old female with past medical history significant for hypertension. She is admitted for dysphagia due to pyloric stenosis and acute kidney injury acute kidney injury superimposed on chronic kidney disease- s/p kidney biopsy ( [facility]) which showed ATN. 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 Okay to discharge as per Nephrology specialist. dysphagia due to Pyloric Stenosis; s/p EGD with pyloric dilation - Awaiting results of stomach biopsy - GI consulted, recommendations appreciated - D5 plus NS at 60 miles per hour, increasing diet at this time anticipate stopping fluids as time progresses, not yet discharge by GI specialist. anemia due to chronic disease vs dilutional- iron panel was reviewed- stool for blood negative- monitor H/H, patient complaining of restless leg syndrome -Iron supplementation started hypertension-better controlled- stopped lisinopril - continue norvasc- - clonidine prn- will monitor BP and adjust the regimen as needed. DVT prophylaxis with SCD's GI prophylaxis with IV pantoprazole Discharge Planning Awaiting final recommendations by GI specialist for discharge. Jeevan Francis MD May 20, 2017 08:20
[2017-05-20] MEDS: MULTIVITAMINS/IRON/MINERALS CHEWABLE TAB CHEW SCH (09:02)
[2017-05-20] MEDS: ONDANSETRON HCL 4 MG/2 ML VIAL IV PUSH PRN (09:02)
[2017-05-20] MEDS: amLODIPine BESYLATE 5 MG TAB PO SCH (09:02)
[2017-05-20 09:15] LABS: HEMATOCRIT 24.7 % (35.0-46.0); MEAN CELL VOLUME 98.2 FL (80.0-100.0); MEAN CORPUSCULAR HEMOGLOBIN 31.7 PG (27.0-34.0); MEAN CORPUSCULAR HGB CONC 32.3 % (32.0-36.0); PLATELET COUNT 421 TH/MM3 (150-450); RED BLOOD COUNT 2.52 MIL/MM3 (4.00-5.30); RED CELL DISTRIBUTION WIDTH 12.9 % (11.6-17.2); REVIEW FLAG FINAL; WHITE BLOOD COUNT 7.4 TH/MM3 (4.0-11.0)
[2017-05-20 09:42] LABS: BICARBONATE 17.3 MEQ/L (21.0-32.0); POTASSIUM 3.2 MEQ/L (3.5-5.1)
[2017-05-20] MEDS ORDERED: POTASSIUM CHLORIDE 10 MEQ CONTROLLED RELEASE TAB PO ONE (11:30)
--- NOTE | 2017-05-20 11:30 | HHI.NPPN ---
Subjective Renal Failure: Acute Interval History She is awake/alert. Awaiting EGD biopsy report. Renal function improved. Hypokalemic today. (Brittany Tomlinson) Objective Data Data 05/19/17 05/20/17 19:00 07:00 Intake Total 1029 ml 200 ml Balance 1029 ml 200 ml Intake Oral 480 ml 200 ml IV Total 549 ml # Voids 3 2 # Bowel Movements 0 Vital Signs Date Time Temp Pulse Resp B/P Pulse Ox O2 Delivery O2 Flow Rate FiO2 05/20/17 08:00 98.0 83 20 148/95 97 05/20/17 04:00 97.8 84 17 142/82 94 05/20/17 00:00 97.5 89 17 140/75 96 05/19/17 23:42 Room Air 05/19/17 20:00 97.2 75 18 154/77 100 05/19/17 16:00 97.4 74 20 152/83 100 05/19/17 12:00 97.2 84 20 132/97 98 05/19/17 12:00 97.8 72 20 142/87 99 (Brittany Tomlinson) -: 05/20/17 0710 05/20/17 0710 Physical Exam General Appearance: Well Developed, Well Nourished, No Acute Distress, Comfortable ( Brittany Tomlinson) Throat Throat Exam: Oral Mucosa [place] & Moist (Brittany Tomlinson) Neck Neck Exam: Neck Supple (Brittany Tomlinson) Pulmonary Resp Exam: Clear Bilaterally (Brittany Tomlinson) Cardiology CV Exam: Regular, Normal Sinus Rhythm, Good Perfusion (Brittany Tomlinson) Gastrointestinal/Abdomen GI Exam: Soft, Non-Tender, Bowel Sounds Present (Brittany Tomlinson) Genitourinary Exam: Clear Urine (Brittany Tomlinson) Musculoskeletal MS Exam: Joints Intact, Normal Gait, Good Strength (Brittany Tomlinson) Integumentary Skin Exam: Clear, Warm, Dry, Intact (Brittany Tomlinson) Extremeties Extremities Exam: No Edema, Pedal Pulses Palpable (Brittany Tomlinson) Neurologic Neuro Exam: Alert, Awake, Oriented, Speech Clear (Brittany Tomlinson) Assessment/Plan Discussed Condition With: Patient Electrolyte Assessment: Hypernatremia, Hypocalcemia Problem List: (1) Acute renal failure Plan: Patient had a right kidney biopsy 05/14 and it showed the acute tubular necrosis, may be due to viral syndrome she has underlying CKD III, Cr 0.99, GFR 60s PUMA may have also been due to milk alkali syndrome Creatinine improving C02 should improve as renal function improves k has been replaced At this time continue IVF, Avoid nephrotoxins She should avoid calcium supplements and Pepto Bismol in future renal panel in am (2) Hypercalcemia Plan: due to overuse of supplements now slightly hypocalcemic, monitor (3) Pyloric stenosis Plan: s/p EGD , GI following awaiting H pylori results (4) Viral syndrome Plan: Continue to monitor (5) Anemia Plan: check iron profile (Brittany Tomlinson) Plan patient was seen and examined. Renal function is stable. Change IVF to D5W on account of mild hypernatremia. Discussed at length with the patient. (Dylan Barr MD) Problem Qualifiers (1) Acute renal failure: Qualified Code: N17.9 - Acute renal failure, unspecified acute renal failure type Brittany Tomlinson May 20, 2017 11:29 Dylan Barr MD May 20, 2017 17:37
[2017-05-20] MEDS: POLYETHYLENE GLYCOL 17 GM PKG PO SCH (13:49)
--- NOTE | 2017-05-20 14:16 | HHI.GIFU ---
Subjective Remarks Resting in bed. Continues to have some epigastric discomfort, but is tolerating diet. C/O persistent upper/mid back pain- directly behind her stomach. Also complains of bloating and constipation. Objective Vitals I&O Vital Signs Date Time Temp Pulse Resp B/P Pulse Ox O2 Delivery O2 Flow Rate FiO2 05/20/17 13:11 Room Air 05/20/17 12:00 97.7 80 20 150/89 97 05/20/17 08:00 98.0 83 20 148/95 97 05/20/17 07:57 74 05/20/17 04:00 97.8 84 17 142/82 94 05/20/17 00:00 97.5 89 17 140/75 96 05/19/17 23:42 Room Air 05/19/17 20:00 97.2 75 18 154/77 100 05/19/17 16:00 97.4 74 20 152/83 100 I/O 05/19/17 05/19/17 05/19/17 05/20/17 05/20/17 05/20/17 07:00 15:00 23:00 07:00 15:00 23:00 Intake Total 734 ml 1029 ml 200 ml 200 ml Output Total 200 ml Balance 534 ml 1029 ml 200 ml 200 ml Intake Oral 240 ml 480 ml 200 ml 200 ml IV Total 494 ml 549 ml Output Urine Total 200 ml # Voids 3 2 # Bowel Movements 0 Laboratory Laboratory Tests Test 05/20/17 07:10 White Blood Count 7.4 Red Blood Count 2.52 Hemoglobin 8.0 Hematocrit 24.7 Mean Corpuscular Volume 98.2 Mean Corpuscular Hemoglobin 31.7 Mean Corpuscular Hemoglobin 32.3 Concent Red Cell Distribution Width 12.9 Platelet Count 421 Mean Platelet Volume 8.4 Sodium Level 146 Potassium Level 3.2 Chloride Level 116 Carbon Dioxide Level 17.3 Anion Gap 13 Blood Urea Nitrogen 11 Creatinine 1.88 Estimat Glomerular Filtration 29 Rate Random Glucose 74 Calcium Level 7.9 Lipase 156 Date/Time Procedure Status Source Growth 05/17/17 09:15 Stool Occult Blood (CARLOS ALBERTO) - Final Complete Stool Stool HEMOCCULT NEGATIVE Imaging Last Impressions Upper Extremity Ultrasound 05/17/17 0000 Signed Impressions: Service Date/Time: Wednesday, May 17, 2017 17:23 - CONCLUSION: No DVT. Rodrigo Alonso MD Physical Exam HEENT: Normocephalic; atraumatic; no jaundice. CHEST: CTA CARDIAC: RRR ABDOMEN: Soft, mildly bloated, epigastric tenderness; no hepatosplenomegaly; bowel sounds are present in all four quadrants. EXTREMITIES: No clubbing, cyanosis, or edema. SKIN: Normal; no rash; no jaundice. RN ENDOCRINOLOGY: No focal deficits; alert and oriented times three. Assessment and Plan Plan ASSESSMENT: - Abdominal pain radiating to back. S/P EGD (05/19/17)---> Pyloric channel ulcer causing pyloric stenosis, s/p balloon dilatation to 17 mm, GERD, Gastritis- possible H. Pylori gastritis, normal duodenum, residual food in the stomach. Protonix Gtt. She is tolerating diet so far, but continues to have abdominal pain radiating to back, directly behind her stomach. Will get CT abdomen and pelvis and lipase to rule out pancreatitis vs. other etiology. Will also add Miralax in case her constipation is contributing to her symptoms. - Pyloric stenosis. S/P Pyloric dilatation performed to 17mm without apparent complication. Will need repeat EGD with dilatation in 2-3 weeks PPI. - Pyloric channel ulcer. Pathology pending. Protonix Gtt. - Gastritis. Pathology pending. - Constipation. Add miralax - Anemia. 8.0/24.7 - PUMA with electrolyte abnormalities, improving. Creat 1.88. Renal following. PLAN: - Soft diet - Await pathology - Protonix 40mg IV BID - CT scan abdomen and pelvis with po contrast only - Lipase level - Monitor labs - Await celiac panel, although she has been on gluten free diet prior to this hospitalization - Supportive care - Pt seen and examined by Dr. Matt and myself and this note is written on his behalf Keely Cline May 20, 2017 14:16
[2017-05-20] MEDS: DEXT 5%-NACL 0.9% 1000 ML INJ 1,000 ML IV SCH (15:47)
[2017-05-20] MEDS ORDERED: DIATRIZOATE MEGLUM/DIATRIZOATE SOD 9 ML CUP PO ONE (16:00)
[2017-05-20] MEDS: DEXTROSE 5% IN WATE 1000ML INJ 1,000 ML IV SCH (18:27)
[2017-05-20] MEDS: ACETAMINOPHEN 325 MG TAB PO PRN ×2 (18:28→22:29)
--- NOTE | 2017-05-20 21:14 | RADRPT ---
EXAM DATE/TIME: 05/20/2017 20:38 [place] COMPARISON: No previous studies available for comparison. INDICATIONS : Abdominal pain, bloating and constipation. ORAL CONTRAST: Prescribed oral contrast ingested. RADIATION DOSE: 4.63 CTDIvol (mGy) MEDICAL HISTORY : Hypertension. Pancreatitis. Renal insufficiency.Nephrolithiasis. IBS. SURGICAL HISTORY : Tubal ligation. Hysterectomy. ENCOUNTER: Subsequent ACUITY: 3 days PAIN SCALE: 8/10 LOCATION: All quadrants. TECHNIQUE: Volumetric scanning of the abdomen and pelvis was performed. Using automated exposure control and ad justment of the mA and/or kV according to patient size, radiation dose was kept as low as reasonably achievable to obtain optimal diagnostic quality images. DICOM format image data is available electro nically for review and comparison. FINDINGS: Compare May 2016. There are now small bilateral pleural effusions and mild basilar airspace disease. No pericardial effusion. No acute findings in the liver, spleen, adrenals, kidneys or pancreas. Tiny bilateral renal calcifica tions similar to prior exam. No free air free fluid. No bowel obstruction. There are remote fractures of the right superior and in ferior pubic rami with resolution of previous fluid collection in the lower right pelvic musculature. CONCLUSION: 1. Development of small bilateral pleural effusions and mild basilar airspace disease since prior CT. 2. No acute findings within the abdomen and pelvis. 3. Remote fractures of the right superior and inferior pubic rami with fracture lines remaining visib le. Benigno Winters MD on May 20, 2017 at 21:08 Board Certified Radiologist. This report was verified electronically.
[2017-05-21] VITALS (7 sets, daily range): BP systolic 129–182; BP diastolic 89–108; PULSE 74–94; RESP 18–20; TEMP 97.4–98.3; O2SAT 95–100
[2017-05-21] MEDS: PANTOPRAZOLE INJ 80 MG in SODIUM CHLORIDE 0.9% INJ 100 ML IV SCH ×2 (01:24→11:03)
[2017-05-21 08:21] LABS: ANION GAP 9 MEQ/L (5-15); BICARBONATE 20.8 MEQ/L (21.0-32.0); BLOOD UREA NITROGEN 7 MG/DL (7-18); CHLORIDE 115 MEQ/L (98-107); GLOMERULAR FILTRATION RATE 30 ML/MIN (>89); POTASSIUM 3.4 MEQ/L (3.5-5.1); SODIUM (NA) 145 MEQ/L (136-145); TRANSFERRIN IRON PROFILE 173 MG/DL (200-360)
[2017-05-21] MEDS: POLYETHYLENE GLYCOL 17 GM PKG PO SCH (08:27)
[2017-05-21] MEDS: MULTIVITAMINS/IRON/MINERALS CHEWABLE TAB CHEW SCH (08:27)
[2017-05-21] MEDS: amLODIPine BESYLATE 5 MG TAB PO SCH (08:27)
[2017-05-21] MEDS: ACETAMINOPHEN 325 MG TAB PO PRN (08:30)
[2017-05-21] MEDS ORDERED: POTASSIUM PHOSPHATE MONOBASIC 500 MG TAB PO ONE (09:30)
[2017-05-21] MEDS: DEXTROSE 5% IN WATE 1000ML INJ 1,000 ML IV SCH (11:03)
--- NOTE | 2017-05-21 11:27 | HHI.NPPN ---
Subjective Renal Failure: Acute Interval History Renal function is better. She is tolerating diet. (Brittany Tomlinson) Objective Data Data 05/20/17 05/21/17 19:00 07:00 Intake Total 440 ml 802 ml Balance 440 ml 802 ml Intake Oral 440 ml IV Total 802 ml # Voids 4 4 # Bowel Movements 0 0 Vital Signs Date Time Temp Pulse Resp B/P Pulse Ox O2 Delivery O2 Flow Rate FiO2 05/21/17 08:45 Room Air 05/21/17 08:32 84 05/21/17 08:00 97.9 85 20 156/95 96 05/21/17 04:08 97.8 94 18 148/89 95 05/21/17 00:09 98.3 81 20 129/90 97 05/21/17 00:00 97 Room Air 05/20/17 20:30 93 05/20/17 20:30 100 Room Air 05/20/17 20:00 97.6 87 18 145/102 100 05/20/17 17:27 86 166/92 05/20/17 16:00 97.9 92 20 167/107 99 05/20/17 13:11 Room Air 05/20/17 12:00 97.7 80 20 150/89 97 (Brittany Tomlinson) -: 05/20/17 0710 05/21/17 0557 Imaging Last 72 hours Impressions Abdomen/Pelvis CT 05/20/17 0000 Signed Impressions: Service Date/Time: Saturday, May 20, 2017 20:38 - CONCLUSION: 1. Development of small bilateral pleural effusions and mild basilar airspace disease since prior CT. 2. No acute findings within the abdomen and pelvis. 3. Remote fractures of the right superior and inferior pubic rami with fracture lines remaining visible. Benigno Winters MD (Brittany Tomlinson) Physical Exam General Appearance: Well Developed, Well Nourished, No Acute Distress, Comfortable ( Brittany Tomlinson) Throat Throat Exam: Oral Mucosa [place] & Moist (Brittany Tomlinson) Neck Neck Exam: Neck Supple (Brittany Tomlinson) Pulmonary Resp Exam: Clear Bilaterally (Brittany Tomlinson) Cardiology CV Exam: Regular, Normal Sinus Rhythm, Good Perfusion (Brittany Tomlinson) Gastrointestinal/Abdomen GI Exam: Soft, Non-Tender, Bowel Sounds Present (Brittany Tomlinson) Genitourinary Exam: Clear Urine (Brittany Tomlinson) Musculoskeletal MS Exam: Joints Intact, Normal Gait, Good Strength (Brittany Tomlinson) Integumentary Skin Exam: Clear, Warm, Dry, Intact (Brittany Tomlinson) Extremeties Extremities Exam: No Edema, Pedal Pulses Palpable (Brittany Tomlinson) Neurologic Neuro Exam: Alert, Awake, Oriented, Speech Clear (Brittany Tomlinson) Assessment/Plan Discussed Condition With: Patient Electrolyte Assessment: Hypocalcemia, Hypokalemia, Metabolic Acidosis Assessment Remarks hypophosphatemia Problem List: (1) Acute renal failure Plan: Patient had a right kidney biopsy 05/14 and it showed the acute tubular necrosis, may be due to viral syndrome she has underlying CKD III, Cr 0.99, GFR 60s PUMA may have also been due to milk alkali syndrome reanl function is improving C02 should improve as renal function improves replace potassium and phosphorus, likely due to poor dietary intake At this time stop IVF Avoid nephrotoxins She should avoid calcium supplements and Pepto Bismol in future she is stable for discharge we will follow her in the outpatient setting (2) Hypercalcemia Plan: thought to be due to overuse of supplements, which were stopped now slightly hypocalcemic (3) Pyloric stenosis Plan: s/p EGD , GI following H pylori negative (4) Viral syndrome Plan: Continue to monitor (5) Anemia Plan: labs not indicating iron deficiency, monitor (Brittany Tomlinson) Plan patient was seen and examined. Mild hypocalcemia (after correction for low albumin). Presented with hypercalcemia. Low phosphorus, replacement ordered. Patient may have developed refeeding hypophosphatemia. (yDlan Barr MD) Problem Qualifiers (1) Acute renal failure: Qualified Code: N17.9 - Acute renal failure, unspecified acute renal failure type Brittany Tomlinson May 21, 2017 11:27 Dylan Barr MD May 22, 2017 15:25
--- NOTE | 2017-05-21 16:26 | HHI.PR ---
Subjective Remarks This is a pleasant 46 y/o Female with CKD, Hypertension, status post Kidney biopsy at [facility] came to [facility] with abdominal pain, Nausea, and vomit. has restless leg syndrome, creatinine improving, Stable in his bedroom no nausea, vomit or diarrhea, started on Protein Shakes, as per Nephrology specialist okay to discharge home, follow as outpatient, not yet discharged by GI specialist. Objective Vital Signs Date Time Temp Pulse Resp B/P Pulse Ox O2 Delivery O2 Flow Rate FiO2 05/21/17 16:00 98.0 78 20 149/89 100 05/21/17 12:00 Room Air 05/21/17 12:00 97.9 74 20 145/90 100 05/21/17 08:45 Room Air 05/21/17 08:32 84 05/21/17 08:00 97.9 85 20 156/95 96 05/21/17 04:08 97.8 94 18 148/89 95 05/21/17 00:09 98.3 81 20 129/90 97 05/21/17 00:00 97 Room Air 05/20/17 20:30 93 05/20/17 20:30 100 Room Air 05/20/17 20:00 97.6 87 18 145/102 100 05/20/17 17:27 86 166/92 I/O 05/20/17 05/20/17 05/20/17 05/21/17 05/21/17 05/21/17 07:00 15:00 23:00 07:00 15:00 23:00 Intake Total 200 ml 440 ml 454 ml 348 ml 884 ml Balance 200 ml 440 ml 454 ml 348 ml 884 ml Intake Oral 200 ml 440 ml 480 ml IV Total 454 ml 348 ml 404 ml # Voids 2 4 2 2 4 # Bowel Movements 0 0 0 1 Result Diagram: 05/20/17 0710 05/21/17 0557 Imaging Last Impressions Abdomen/Pelvis CT 05/20/17 0000 Signed Impressions: Service Date/Time: Saturday, May 20, 2017 20:38 - CONCLUSION: 1. Development of small bilateral pleural effusions and mild basilar airspace disease since prior CT. 2. No acute findings within the abdomen and pelvis. 3. Remote fractures of the right superior and inferior pubic rami with fracture lines remaining visible. Benigno Winters MD Upper Extremity Ultrasound 05/17/17 0000 Signed Impressions: Service Date/Time: Wednesday, May 17, 2017 17:23 - CONCLUSION: No DVT. Rodrigo Alonso MD Procedures None. Other Results Laboratory Tests Test 05/17/17 05/18/17 05/20/17 05/21/17 11:30 06:50 07:10 05:57 Magnesium Level 1.5 MG/DL Neutrophils (%) (Auto) 61.8 % Lymphocytes (%) (Auto) 26.5 % Monocytes (%) (Auto) 7.2 % Eosinophils (%) (Auto) 3.1 % Basophils (%) (Auto) 1.4 % Neutrophils # (Auto) 4.7 TH/MM3 Lymphocytes # (Auto) 2.0 TH/MM3 Monocytes # (Auto) 0.5 TH/MM3 Eosinophils # (Auto) 0.2 TH/MM3 Basophils # (Auto) 0.1 TH/MM3 CBC Comment DIFF FINAL Differential Comment White Blood Count 7.4 TH/MM3 Red Blood Count 2.52 MIL/MM3 Hemoglobin 8.0 GM/DL Hematocrit 24.7 % Mean Corpuscular Volume 98.2 FL Mean Corpuscular Hemoglobin 31.7 PG Mean Corpuscular Hemoglobin 32.3 % Concent Red Cell Distribution Width 12.9 % Platelet Count 421 TH/MM3 Mean Platelet Volume 8.4 FL Lipase 156 U/L Sodium Level 145 MEQ/L Potassium Level 3.4 MEQ/L Chloride Level 115 MEQ/L Carbon Dioxide Level 20.8 MEQ/L Anion Gap 9 MEQ/L Blood Urea Nitrogen 7 MG/DL Creatinine 1.80 MG/DL Estimat Glomerular Filtration 30 ML/MIN Rate Random Glucose 76 MG/DL Calcium Level 7.7 MG/DL Phosphorus Level 2.1 MG/DL Iron Level 61 MCG/DL Total Iron Binding Capacity 242 MCG/DL Percent Iron Saturation 25.2 % Albumin 2.7 GM/DL Objective Remarks GENERAL: no acute distress. SKIN: Warm and dry. HEAD: Atraumatic. Normocephalic. EYES: Pupils equal and round. No scleral icterus. No injection or drainage. ENT: No nasal bleeding or discharge. Mucous membranes pink and moist. NECK: Trachea midline. No JVD. CARDIOVASCULAR: Regular rate and rhythm. RESPIRATORY: No accessory muscle use. Clear to auscultation. Breath sounds equal bilaterally. GASTROINTESTINAL: Abdomen soft, non-tender, nondistended. Hepatic and splenic margins not palpable. MUSCULOSKELETAL: Extremities without clubbing, cyanosis, Edema 2+ NEUROLOGICAL: Awake and alert. No focal deficits. PSYCHIATRIC: Appropriate mood and affect; insight and judgment normal. Medications and IVs Current Medications Medications (Trade) Dose Ordered Sig/Nelia Route Start Time Stop Time Status Last Admin (Catapres) 0.1 mg Q8HR PRN PO 05/15/17 15:45 05/16/17 21:10 (Zofran Inj) 4 mg Q8HR PRN IV PUSH 05/15/17 15:45 05/20/17 09:02 (Tylenol) 650 mg Q4H PRN PO 05/15/17 15:45 05/21/17 08:30 Amlodipine Besylate 5 mg 5 mg DAILY PO 05/16/17 10:45 05/21/17 08:27 (Protonix Inj/NS Inj) 100 ml @ 10 mls/hr Q10H IV 05/18/17 23:00 05/21/17 11:03 (Flintstones Complete) 1 tab DAILY CHEW 05/19/17 12:45 05/21/17 08:27 (Miralax) 17 gm DAILY PO 05/20/17 12:30 05/21/17 08:27 A/P Assessment and Plan This a 46-year-old female with past medical history significant for hypertension. She is admitted for dysphagia due to pyloric stenosis and acute kidney injury acute kidney injury superimposed on chronic kidney disease- s/p kidney biopsy ( [facility]) which showed ATN. 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 Okay to discharge as per Nephrology specialist. dysphagia due to Pyloric Stenosis; s/p EGD with pyloric dilation - Abdominal pain radiating to back. S/P EGD (05/19/17)---> Pyloric channel ulcer causing pyloric stenosis, s/p balloon dilatation to 17 mm, GERD, Gastritis- possible H. Pylori gastritis, normal duodenum, residual food in the stomach. Protonix Gtt. tolerating diet suspected Pancreatitis versus other etiology, given Miralax for probable constipation, for Pyloric Stenosis, status post Pyloric dilation performed to 17 mm without apparent complication, will need EGD with Dilatation in 2 to 3 weeks. for Gastritis biopsy waited asked for CT abdomen with PO contrast only, awaiting for Celiac Panel. anemia due to chronic disease vs dilutional- iron panel was reviewed- stool for blood negative- monitor H/H, patient complaining of restless leg syndrome -Iron supplementation started hypertension-better controlled- stopped lisinopril - continue norvasc- - clonidine prn- will monitor BP and adjust the regimen as needed. Rami fractures found on new CT abdomen and Pelvis DVT prophylaxis with SCD's GI prophylaxis with IV pantoprazole Clarence Hose for lower extremity edema Ensure added remove hosiery pairer. Discharge Planning Awaiting final recommendations by GI specialist for discharge. Jeevan Francis MD May 21, 2017 16:26
--- NOTE | 2017-05-21 16:44 | HHI.GIFU ---
Subjective Remarks Pt in chair, says she's eating ok & mild epigastric TTP, eager to go home. Objective Vitals I&O Vital Signs Date Time Temp Pulse Resp B/P Pulse Ox O2 Delivery O2 Flow Rate FiO2 05/21/17 16:00 98.0 78 20 149/89 100 05/21/17 12:00 Room Air 05/21/17 12:00 97.9 74 20 145/90 100 05/21/17 08:45 Room Air 05/21/17 08:32 84 05/21/17 08:00 97.9 85 20 156/95 96 05/21/17 04:08 97.8 94 18 148/89 95 05/21/17 00:09 98.3 81 20 129/90 97 05/21/17 00:00 97 Room Air 05/20/17 20:30 93 05/20/17 20:30 100 Room Air 05/20/17 20:00 97.6 87 18 145/102 100 05/20/17 17:27 86 166/92 I/O 05/20/17 05/20/17 05/20/17 05/21/17 05/21/17 05/21/17 07:00 15:00 23:00 07:00 15:00 23:00 Intake Total 200 ml 440 ml 454 ml 348 ml 884 ml Balance 200 ml 440 ml 454 ml 348 ml 884 ml Intake Oral 200 ml 440 ml 480 ml IV Total 454 ml 348 ml 404 ml # Voids 2 4 2 2 4 # Bowel Movements 0 0 0 1 Laboratory Laboratory Tests Test 05/21/17 05:57 Sodium Level 145 Potassium Level 3.4 Chloride Level 115 Carbon Dioxide Level 20.8 Anion Gap 9 Blood Urea Nitrogen 7 Creatinine 1.80 Estimat Glomerular Filtration 30 Rate Random Glucose 76 Calcium Level 7.7 Phosphorus Level 2.1 Iron Level 61 Total Iron Binding Capacity 242 Percent Iron Saturation 25.2 Albumin 2.7 Date/Time Procedure Status Source Growth 05/17/17 09:15 Stool Occult Blood ([facility]) - Final Complete Stool Stool HEMOCCULT NEGATIVE Imaging Last Impressions Abdomen/Pelvis CT 05/20/17 0000 Signed Impressions: Service Date/Time: Saturday, May 20, 2017 20:38 - CONCLUSION: 1. Development of small bilateral pleural effusions and mild basilar airspace disease since prior CT. 2. No acute findings within the abdomen and pelvis. 3. Remote fractures of the right superior and inferior pubic rami with fracture lines remaining visible. Benigno Winters MD Upper Extremity Ultrasound 05/17/17 0000 Signed Impressions: Service Date/Time: Wednesday, May 17, 2017 17:23 - CONCLUSION: No DVT. Rodrigo Alonso MD Physical Exam HEENT: Normocephalic; atraumatic; no jaundice. CHEST: CTA CARDIAC: RRR ABDOMEN: Soft, nontender; no hepatosplenomegaly; bowel sounds are present in all four quadrants. EXTREMITIES: No clubbing, cyanosis, or edema. SKIN: Normal; no rash; no jaundice. INVESTOR RELATIONS DIRECTOR: No focal deficits; alert and oriented times three. Assessment and Plan Plan ASSESSMENT: - Abdominal pain radiating to back. s/p CT 05-20-17--> 1. Development of small bilateral pleural effusions and mild basilar airspace disease since prior CT. 2. No acute findings within the abdomen and pelvis. 3. Remote fractures of the right superior and inferior pubic rami with fracture lines remaining visible. S/P EGD (05/19/17)---> Pyloric channel ulcer causing pyloric stenosis, s/p balloon dilatation to 17 mm, GERD, Gastritis- possible H. Pylori gastritis, normal duodenum, residual food in the stomach. Protonix Gtt. She is tolerating diet so far, but continues to have abdominal pain radiating to back, directly behind her stomach. Lipase ok. Will also add Miralax in case her constipation is contributing to her symptoms. - Pyloric stenosis. S/P Pyloric dilatation performed to 17mm without apparent complication. Will need repeat EGD with dilatation in 2-3 weeks PPI. - Pyloric channel ulcer. Pathology benign, neg for H Pylori. Protonix Gtt. - Gastritis. path as above - Constipation. Add miralax - Anemia. 8.0/24.7 - PUMA with electrolyte abnormalities, improving. Creat 1.88. Renal following. PLAN: - HAYLEY - Protonix 40mg PO BID - Monitor labs - Await celiac panel, although she has been on gluten free diet prior to this hospitalization - okay to DC from GI standpoint if pt tolerating diet - Supportive care - Pt seen and examined by Dr. Matt and myself and this note is written on his behalf Desi Geronimo May 21, 2017 16:44
[2017-05-21] MEDS: cloNIDine HCL 0.1 MG TAB PO PRN (20:22)
[2017-05-21] MEDS: PANTOPRAZOLE SOD 40 MG DELAYED RELEASE TAB PO SCH (20:22)
[2017-05-22] VITALS: BP 153/78; PULSE 84; RESP 18; TEMP 97.2; O2SAT 95
[2017-05-22 04:09] VITALS: BP 146/71; PULSE 77; RESP 16; TEMP 97.6; O2SAT 97
[2017-05-22] MEDS: POLYETHYLENE GLYCOL 17 GM PKG PO SCH (07:55)
[2017-05-22] MEDS: MULTIVITAMINS/IRON/MINERALS CHEWABLE TAB CHEW SCH (07:55)
[2017-05-22] MEDS: PANTOPRAZOLE SOD 40 MG DELAYED RELEASE TAB PO SCH (07:56)
[2017-05-22] MEDS: amLODIPine BESYLATE 5 MG TAB PO SCH (07:56)
[2017-05-22 08:00] VITALS: BP 147/82; PULSE 81; RESP 20; TEMP 97.9; O2SAT 95
--- NOTE | 2017-05-22 11:03 | HHI.PR ---
Subjective Remarks This is a pleasant 46 y/o Female with CKD, Hypertension, status post Kidney biopsy at [facility] came to [facility] with abdominal pain, Nausea, and vomit. has restless leg syndrome, creatinine improving, 05/22: Seen in her bedroom in the presence of FRINGE MAKER, no nausea, vomit or diarrhea, okay to discharge as per GI specialist standpoint. Objective Vital Signs Date Time Temp Pulse Resp B/P Pulse Ox O2 Delivery O2 Flow Rate FiO2 05/22/17 08:00 97.9 81 20 147/82 95 05/22/17 08:00 Room Air 05/22/17 04:09 97.6 77 16 146/71 97 05/22/17 00:00 97.2 84 18 153/78 95 05/21/17 20:30 100 Room Air 05/21/17 20:00 97.4 83 20 182/108 99 05/21/17 16:00 98.0 78 20 149/89 100 05/21/17 16:00 Room Air 05/21/17 12:00 Room Air 05/21/17 12:00 97.9 74 20 145/90 100 I/O 05/21/17 05/21/17 05/21/17 05/22/17 05/22/17 05/22/17 07:00 15:00 23:00 07:00 15:00 23:00 Intake Total 348 ml 884 ml 240 ml Balance 348 ml 884 ml 240 ml Intake Oral 480 ml 240 ml IV Total 348 ml 404 ml # Voids 2 4 3 # Bowel Movements 0 1 0 Result Diagram: 05/20/17 0710 05/21/17 0557 Imaging Last Impressions Abdomen/Pelvis CT 05/20/17 0000 Signed Impressions: Service Date/Time: Saturday, May 20, 2017 20:38 - CONCLUSION: 1. Development of small bilateral pleural effusions and mild basilar airspace disease since prior CT. 2. No acute findings within the abdomen and pelvis. 3. Remote fractures of the right superior and inferior pubic rami with fracture lines remaining visible. Benigno Winters MD Upper Extremity Ultrasound 05/17/17 0000 Signed Impressions: Service Date/Time: Wednesday, May 17, 2017 17:23 - CONCLUSION: No DVT. Rodrigo Alonso MD Procedures None. Other Results Laboratory Tests Test 705/20/17 05/21/17 06:50 07:10 05:57 Neutrophils (%) (Auto) 61.8 % Lymphocytes (%) (Auto) 26.5 % Monocytes (%) (Auto) 7.2 % Eosinophils (%) (Auto) 3.1 % Basophils (%) (Auto) 1.4 % Neutrophils # (Auto) 4.7 TH/MM3 Lymphocytes # (Auto) 2.0 TH/MM3 Monocytes # (Auto) 0.5 TH/MM3 Eosinophils # (Auto) 0.2 TH/MM3 Basophils # (Auto) 0.1 TH/MM3 CBC Comment DIFF FINAL Differential Comment White Blood Count 7.4 TH/MM3 Red Blood Count 2.52 MIL/MM3 Hemoglobin 8.0 GM/DL Hematocrit 24.7 % Mean Corpuscular Volume 98.2 FL Mean Corpuscular Hemoglobin 31.7 PG Mean Corpuscular Hemoglobin 32.3 % Concent Red Cell Distribution Width 12.9 % Platelet Count 421 TH/MM3 Mean Platelet Volume 8.4 FL Lipase 156 U/L Sodium Level 145 MEQ/L Potassium Level 3.4 MEQ/L Chloride Level 115 MEQ/L Carbon Dioxide Level 20.8 MEQ/L Anion Gap 9 MEQ/L Blood Urea Nitrogen 7 MG/DL Creatinine 1.80 MG/DL Estimat Glomerular Filtration 30 ML/MIN Rate Random Glucose 76 MG/DL Calcium Level 7.7 MG/DL Phosphorus Level 2.1 MG/DL Iron Level 61 MCG/DL Total Iron Binding Capacity 242 MCG/DL Percent Iron Saturation 25.2 % Albumin 2.7 GM/DL Objective Remarks GENERAL: no acute distress. SKIN: Warm and dry. HEAD: Atraumatic. Normocephalic. EYES: Pupils equal and round. No scleral icterus. No injection or drainage. ENT: No nasal bleeding or discharge. Mucous membranes pink and moist. NECK: Trachea midline. No JVD. CARDIOVASCULAR: Regular rate and rhythm. RESPIRATORY: No accessory muscle use. Clear to auscultation. Breath sounds equal bilaterally. GASTROINTESTINAL: Abdomen soft, non-tender, nondistended. Hepatic and splenic margins not palpable. MUSCULOSKELETAL: Extremities without clubbing, cyanosis, Edema 2+ NEUROLOGICAL: Awake and alert. No focal deficits. PSYCHIATRIC: Appropriate mood and affect; insight and judgment normal. Medications and IVs Current Medications Medications (Trade) Dose Ordered Sig/Nelia Route Start Time Stop Time Status Last Admin (Catapres) 0.1 mg Q8HR PRN PO 05/15/17 15:45 05/21/17 20:22 (Zofran Inj) 4 mg Q8HR PRN IV PUSH 05/15/17 15:45 05/20/17 09:02 (Tylenol) 650 mg Q4H PRN PO 05/15/17 15:45 05/21/17 08:30 (Norvasc) 5 mg DAILY PO 05/16/17 10:45 05/22/17 07:56 (Flintstones Complete) 1 tab DAILY CHEW 05/19/17 12:45 05/22/17 07:55 (Miralax) 17 gm DAILY PO 05/20/17 12:30 05/22/17 07:55 (Protonix) 40 mg Q12HR PO 05/21/17 21:00 05/22/17 07:56 A/P Assessment and Plan This a 46-year-old female with past medical history significant for hypertension. She is admitted for dysphagia due to pyloric stenosis and acute kidney injury acute kidney injury superimposed on chronic kidney disease- s/p kidney biopsy ( [facility]) which showed ATN. 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 Okay to discharge as per Nephrology specialist. dysphagia due to Pyloric Stenosis; s/p EGD with pyloric dilation - Abdominal pain radiating to back. S/P EGD (05/19/17)---> Pyloric channel ulcer causing pyloric stenosis, s/p balloon dilatation to 17 mm, GERD, Gastritis- possible H. Pylori gastritis, normal duodenum, residual food in the stomach. Protonix Gtt. tolerating diet suspected Pancreatitis versus other etiology, given Miralax for probable constipation, for Pyloric Stenosis, status post Pyloric dilation performed to 17 mm without apparent complication, will need EGD with Dilatation in 2 to 3 weeks. for Gastritis biopsy waited asked for CT abdomen with PO contrast only, awaiting for Celiac Panel. Discussed with GI specialist HEEL SEAT LASTER recommended okay to discharge to Home now and follow with GI specialist in one week and she will need a new EGD in three weeks. anemia due to chronic disease vs dilutional- iron panel was reviewed- stool for blood negative- monitor H/H, patient complaining of restless leg syndrome -Iron supplementation started hypertension-mild uncontrol increased Amlodipine to 10 mg daily. Rami fractures found on new CT abdomen and Pelvis DVT prophylaxis with SCD's GI prophylaxis PPI by mouth to continue Protonix 40 mg BID. Discharge Planning Discharge Home today. Jeevan Francis MD May 22, 2017 11:03 Awaiting final recommendations by GI specialist for discharge. Jeevan Francis MD May 22, 2017 11:03
--- NOTE | 2017-05-22 11:34 | HHI.GIFU ---
Subjective Remarks Sitting up in bed. Feeling better. Tolerating diet. States she is going home today. Objective Vitals I&O Vital Signs Date Time Temp Pulse Resp B/P Pulse Ox O2 Delivery O2 Flow Rate FiO2 05/22/17 08:00 97.9 81 20 147/82 95 05/22/17 08:00 Room Air 05/22/17 04:09 97.6 77 16 146/71 97 05/22/17 00:00 97.2 84 18 153/78 95 05/21/17 20:30 100 Room Air 05/21/17 20:00 97.4 83 20 182/108 99 05/21/17 16:00 98.0 78 20 149/89 100 05/21/17 16:00 Room Air 05/21/17 12:00 Room Air 05/21/17 12:00 97.9 74 20 145/90 100 I/O 05/21/17 05/21/17 05/21/17 05/22/17 05/22/17 05/22/17 07:00 15:00 23:00 07:00 15:00 23:00 Intake Total 348 ml 884 ml 240 ml Balance 348 ml 884 ml 240 ml Intake Oral 480 ml 240 ml IV Total 348 ml 404 ml # Voids 2 4 3 # Bowel Movements 0 1 0 Imaging Last Impressions Abdomen/Pelvis CT 05/20/17 0000 Signed Impressions: Service Date/Time: Saturday, May 20, 2017 20:38 - CONCLUSION: 1. Development of small bilateral pleural effusions and mild basilar airspace disease since prior CT. 2. No acute findings within the abdomen and pelvis. 3. Remote fractures of the right superior and inferior pubic rami with fracture lines remaining visible. Benigno Winters MD Upper Extremity Ultrasound 05/17/17 0000 Signed Impressions: Service Date/Time: Wednesday, May 17, 2017 17:23 - CONCLUSION: No DVT. Rodrigo Alonso MD Physical Exam HEENT: Normocephalic; atraumatic; no jaundice. CHEST: CTA CARDIAC: RRR ABDOMEN: Soft, nontender; no hepatosplenomegaly; bowel sounds are present in all four quadrants. EXTREMITIES: No clubbing, cyanosis, or edema. SKIN: Normal; no rash; no jaundice. WAREHOUSE LOGISTICS MANAGER: No focal deficits; alert and oriented times three. Assessment and Plan Plan ASSESSMENT: - Abdominal pain radiating to back. S/P EGD (05/19/17)---> Pyloric channel ulcer causing pyloric stenosis, s/p balloon dilatation to 17 mm, GERD, Gastritis- possible H. Pylori gastritis, normal duodenum, residual food in the stomach. Abdomen/Pelvis CT (05/20/17)----> 1. Development of small bilateral pleural effusions and mild basilar airspace disease since prior CT. 2. No acute findings within the abdomen and pelvis. 3. Remote fractures of the right superior and inferior pubic rami with fracture lines remaining visible. Miralax. PPI. (+) BM. Pain improved. Tolerating diet. Will need repeat EGD in 2 weeks. - Pyloric stenosis. S/P Pyloric dilatation performed to 17mm without apparent complication. Will need repeat EGD with dilatation in 2-3 weeks Called Mar in Office to notify of patient and that she will need repeat EGD with pyloric dilatation. She has [employer] and therefore will need referral from primary. Office will call patient and instruct her on need for referral from primary/outpatient fu. PPI. - Pyloric channel ulcer. Pathology mild chronic gastritis, negative for helicobacter pylori. PPI. - Gastritis. PPI - Constipation. Miralax, (+) BM - Anemia. 8.0/24.7 - PUMA with electrolyte abnormalities, improving. Creat 1.80. Renal following. PLAN: - HAYLEY - Protonix 40mg PO BID - FU ROSI 2 weeks for Rpt. EGD with pyloric dilatation. Spoke with Mar in office to help arrange- pt will need referral from primary ([employer]) Office to call patient. - Pt seen and examined by Dr. Matt and myself and this note is written on his behalf Keely Cline May 22, 2017 11:34
[2017-05-22 12:00] VITALS: BP 136/87; PULSE 86; RESP 20; TEMP 97.1; O2SAT 100
[2017-05-22] MEDS ORDERED: PANT40TA3 PO (12:09)
[2017-05-22] MEDS ORDERED: AMLO10TA2 PO (12:09)
[2017-05-22] MEDS ORDERED: FLINT2 CHEW (12:13)
--- NOTE | 2017-05-22 12:16 | HHI.DS ---
Discharge Summary Admission Date May 15, 2017 at 15:05 Discharge Date: May 22, 2017 Admitting Diagnosis renal failure (1) Renal failure ICD Code: N19 Diagnosis: Principal (2) Pyloric stenosis ICD Code: K31.1 Diagnosis: Principal (3) Dysphagia ICD Code: R13.10 Diagnosis: Principal (4) HTN (hypertension) ICD Code: I10 Diagnosis: Principal (5) Anemia ICD Code: D64.9 Diagnosis: Principal Procedures EGD Brief History - From Admission patient is a 46 y/o female with history of chronic kidney disease and hypertension who was initially admitted to [facility] for acute kidney injury and hypercalcemia. she says that she had ' flu-like' symptoms about two weeks ago. she says that she was seen in ER last week and was discharge home after she was told that she had a viral disease. she says that she wasn't feeling good and noticed that her legs were swollen. she says that she had some ' jerky movements' of the hands. she was admitted to [facility] and underwent kidney biopsy yesterday. [facility]. at the time of my evaluation she was resting comfortably with no distress. had mild headache otherwise she denies any chest pain, sob, abdominal pain, nausea or vomiting. CBC/BMP: 05/20/17 0710 05/21/17 0557 Significant Findings Laboratory Tests Test 05/20/17 05/21/17 07:10 05:57 Red Blood Count 2.52 MIL/MM3 (4.00-5.30) Hemoglobin 8.0 GM/DL (11.6-15.3) Hematocrit 24.7 % (35.0-46.0) Sodium Level 146 MEQ/L (136-145) Potassium Level 3.2 MEQ/L 3.4 MEQ/L (3.5-5.1) (3.5-5.1) Chloride Level 116 MEQ/L 115 MEQ/L (98-107) (98-107) Carbon Dioxide Level 17.3 MEQ/L 20.8 MEQ/L (21.0-32.0) (21.0-32.0) Creatinine 1.88 MG/DL 1.80 MG/DL (0.50-1.00) (0.50-1.00) Estimat Glomerular Filtration 29 ML/MIN (>89) 30 ML/MIN (>89) Rate Calcium Level 7.9 MG/DL 7.7 MG/DL (8.5-10.1) (8.5-10.1) Phosphorus Level 2.1 MG/DL (2.5-4.9) Total Iron Binding Capacity 242 MCG/DL (250-450) Albumin 2.7 GM/DL (3.4-5.0) Imaging Last Impressions Abdomen/Pelvis CT 05/20/17 0000 Signed Impressions: Service Date/Time: Saturday, May 20, 2017 20:38 - CONCLUSION: 1. Development of small bilateral pleural effusions and mild basilar airspace disease since prior CT. 2. No acute findings within the abdomen and pelvis. 3. Remote fractures of the right superior and inferior pubic rami with fracture lines remaining visible. Benigno Winters MD Upper Extremity Ultrasound 05/17/17 0000 Signed Impressions: Service Date/Time: Wednesday, May 17, 2017 17:23 - CONCLUSION: No DVT. Rodrigo Alonso MD PE at Discharge GENERAL: no acute distress. SKIN: Warm and dry. HEAD: Atraumatic. Normocephalic. EYES: Pupils equal and round. No scleral icterus. No injection or drainage. ENT: No nasal bleeding or discharge. Mucous membranes pink and moist. NECK: Trachea midline. No JVD. CARDIOVASCULAR: Regular rate and rhythm. RESPIRATORY: No accessory muscle use. Clear to auscultation. Breath sounds equal bilaterally. GASTROINTESTINAL: Abdomen soft, non-tender, nondistended. Hepatic and splenic margins not palpable. MUSCULOSKELETAL: Extremities without clubbing, cyanosis, Edema 2+ NEUROLOGICAL: Awake and alert. No focal deficits. PSYCHIATRIC: Appropriate mood and affect; insight and judgment normal. Hospital Course This is a pleasant 46 y/o Female with CKD, Hypertension, status post Kidney biopsy at [facility] came to [facility] with abdominal pain, Nausea, and vomit. has restless leg syndrome, creatinine improving, 05/22: Seen in her bedroom in the presence of DIGITAL X RAY SERVICE ENGINEER, no nausea, vomit or diarrhea, okay to discharge as per GI specialist standpoint. Assessment and Plan This a 46-year-old female with past medical history significant for hypertension. She is admitted for dysphagia due to pyloric stenosis and acute kidney injury acute kidney injury superimposed on chronic kidney disease- s/p kidney biopsy ( [facility]) which showed ATN. 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 Okay to discharge as per Nephrology specialist. dysphagia due to Pyloric Stenosis; s/p EGD with pyloric dilation - Abdominal pain radiating to back. S/P EGD (05/19/17)---> Pyloric channel ulcer causing pyloric stenosis, s/p balloon dilatation to 17 mm, GERD, Gastritis- possible H. Pylori gastritis, normal duodenum, residual food in the stomach. Protonix Gtt. tolerating diet suspected Pancreatitis versus other etiology, given Miralax for probable constipation, for Pyloric Stenosis, status post Pyloric dilation performed to 17 mm without apparent complication, will need EGD with Dilatation in 2 to 3 weeks. for Gastritis biopsy waited asked for CT abdomen with PO contrast only, awaiting for Celiac Panel. Discussed with GI specialist URBAN AND REGIONAL PLANNER recommended okay to discharge to Home now and follow with GI specialist in one week and she will need a new EGD in three weeks. anemia due to chronic disease vs dilutional- iron panel was reviewed- stool for blood negative- monitor H/H, patient complaining of restless leg syndrome -Iron supplementation started hypertension-mild uncontrol increased Amlodipine to 10 mg daily. Rami fractures found on new CT abdomen and Pelvis DVT prophylaxis with SCD's GI prophylaxis PPI by mouth to continue Protonix 40 mg BID. Discharge Planning Discharge Home today. Pt Condition on Discharge: Good Discharge Disposition: Discharge Home Discharge Time: > 30 minutes Discharge Instructions DIET: Follow Instructions for: Heart Healthy Diet Activities you can perform: Regular-No Restrictions Jeevan Francis MD May 22, 2017 12:15
[2017-05-22] MEDS ORDERED: amLODIPine BESYLATE 5 MG TAB PO ONE (12:30)
== END 2017-05-22 13:37 | disposition home or self-care (01) | DRG 380 ==
LOC: N04B 15:05
PROVIDERS: ADMIT Internal Medicine; ATTEND Internal Medicine
PROC: 0DC68ZZ Extirpation of Matter from Stomach, Via Natural or Artificial Opening Endoscopic (ICD-10-PCS; 2017-05-17)
PROC: 0DB68ZX Excision of Stomach, Via Natural or Artificial Opening Endoscopic, Diagnostic (ICD-10-PCS; 2017-05-18)
PROC: 0D778ZZ Dilation of Stomach, Pylorus, Via Natural or Artificial Opening Endoscopic (ICD-10-PCS; principal; 2017-05-18 12:00)
DX: K31.1 Adult hypertrophic pyloric stenosis (principal); N17.0 Acute kidney failure with tubular necrosis; E87.2 Acidosis; J90 Pleural effusion, not elsewhere classified; E87.0 Hyperosmolality and hypernatremia; R13.19 Other dysphagia; E83.39 Other disorders of phosphorus metabolism; B34.9 Viral infection, unspecified; E83.51 Hypocalcemia; E83.52 Hypercalcemia; K25.9 Gastric ulcer, unspecified as acute or chronic, without hemorrhage or perforation; I12.9 Hypertensive chronic kidney disease with stage 1 through stage 4 chronic kidney disease, or unspecified chronic kidney disease; N18.3 Chronic kidney disease, stage 3 (moderate); M81.0 Age-related osteoporosis without current pathological fracture; K21.9 Gastro-esophageal reflux disease without esophagitis; K29.50 Unspecified chronic gastritis without bleeding; E87.6 Hypokalemia; D63.1 Anemia in chronic kidney disease; E86.0 Dehydration; E16.2 Hypoglycemia, unspecified; G25.81 Restless legs syndrome; Z83.3 Family history of diabetes mellitus
CPT/HCPCS: 74176; 80048; 80069; 81001; 82272; 82948; 83540; 83550; 83690; 83735; 84100; 85014; 85018; 85025; 85027; 88305; 88312; 93971; C1726; C9113; J2405; J3010; J3480; J7030; J7042; J7070; Q9963

== ENCOUNTER → 2017-06-10 | Outpatient (CLI) | payer OTHER ==
[~2017-06-10] VITALS: Ht 162.6 cm; Wt 50.4 kg
[~2017-06-10] MED LIST changes: +AMLO10TA2 PO; +CHLORHEXIDINE GLUCONATE 2 % 1 PACK (2 CLOTHS) TOPICAL PRN; +FLINT2 CHEW; +INSULIN HUMAN REGULAR 1,000 UNITS/10 ML VIAL SQ PRN; +LACTATED RINGER'S 1000 ML IV PRN; -LISI-519 PO; +METOPROLOL TARTRATE 25 MG TAB PO PRN; +PANT40TA3 PO; +POVIDONE IODINE 5% (ANTISEPSIS KIT) 4 APPLICATIONS EACH NARE PRN; +PROPOFOL 200 MG/20 ML AMP IV ONE; +SODIUM CHLORID 0.9% 500 ML IV PRN; -ZOFR4TAB PO
[2017-06-10 08:52] VITALS: BP 96/69; PULSE 76; RESP 16; TEMP 97.9; O2SAT 100
--- NOTE | 2017-06-10 11:22 | PD.PROCEDR ---
GI Procedure PROCEDURE PERFORMED EGD with balloon dilation of the pylorus and biopsy followed by colonoscopy with biopsy INDICATION FOR PROCEDURE Reflux, dysphagia, diarrhea PROCEDURE: The procedure, risks and benefits were discussed with Ms. Aguilar and informed consent was obtained. Anesthesia sedated her with Diprivan. She was placed in the left lateral decubitus position. EGD: The Pentax videoscope was introduced through the oropharynx and advanced to the second portion of the duodenum under direct visualization. Retroflexion was performed in the stomach. FINDINGS: Esophagus this appeared to be unremarkable and within normal limits biopsies were taken for further evaluation The stomach there was a small amount of fine food residue in the stomach and there was a severe pyloric stenosis I was unable to pass the scope using a 10 mm balloon we initiated dilation of the pylorus and went up gradually all the way to 15 postdilatation view was satisfactory with only a small rent the pylorus appeared to be otherwise unremarkable but it was biopsied and the scope was easily passed thereafter into the duodenum The duodenum this was normal biopsies were taken for further evaluation of diarrhea Colonoscopy: The Pentax videoscope was introduced through the rectum and advanced to cecum where the ileocecal valve and appendiceal orifice were identified. Retroflexion was performed in the rectum. Colonic prep was good FINDINGS: Colonic withdrawal time greater than 6 minutes as the scope was slowly withdrawn colonic mucosa was carefully inspected this was noted to be unremarkable with normal limits although way through random biopsies were taken from the ascending and descending colon for further evaluation of diarrhea retroflexion in the rectum was unremarkable cells rectal examination ESTIMATED BLOOD LOSS: None SPECIMENS REMOVED: Esophageal, pylorus, duodenum, colon biopsies COMPLICATIONS: None IMPRESSION: Pyloric stenosis Otherwise normal EGD Unremarkable colonoscopy PLAN: Await biopsies Follow-up in clinic Armaan Sanchez MD Jun 10, 2017 11:21
[2017-06-10 11:45] VITALS: BP 93/66; PULSE 59; RESP 16; TEMP 96.1; O2SAT 98
== END ==
LOC: HSDC 08:12
PROVIDERS: ATTEND Internal Medicine Gastroenterology
DX: K21.9 Gastro-esophageal reflux disease without esophagitis (principal); R13.10 Dysphagia, unspecified; R19.7 Diarrhea, unspecified; K31.1 Adult hypertrophic pyloric stenosis
CPT/HCPCS: 00740; 00810; 43245; 45380; 88305; 88312; C1726; J7120

== ENCOUNTER 2017-07-14 13:53 | Emergency (ER) | payer OTHER ==
[~2017-07-14] VITALS: Ht 162.6 cm; Wt 51.7 kg
[~2017-07-14 13:53] MED LIST changes: -CHLORHEXIDINE GLUCONATE 2 % 1 PACK (2 CLOTHS) TOPICAL PRN; -INSULIN HUMAN REGULAR 1,000 UNITS/10 ML VIAL SQ PRN; -LACTATED RINGER'S 1000 ML IV PRN; -METOPROLOL TARTRATE 25 MG TAB PO PRN; -POVIDONE IODINE 5% (ANTISEPSIS KIT) 4 APPLICATIONS EACH NARE PRN; -PROPOFOL 200 MG/20 ML AMP IV ONE; -SODIUM CHLORID 0.9% 500 ML IV PRN
[2017-07-14 14:00] VITALS: BP 116/77; PULSE 101; RESP 16; TEMP 97.9; O2SAT 98
[2017-07-14] MEDS ORDERED: SODIUM CHLOR 0.9% 1000 ML INJ 1,000 ML IV SCH (14:12)
[2017-07-14] MEDS ORDERED: ONDANSETRON HCL 4 MG/2 ML VIAL IVP ONE (14:15)
[2017-07-14] MEDS ORDERED: SODIUM CHLORIDE 0.9% FLUSH 10 ML FLUSH IV FLUSH PRN (14:15)
[2017-07-14] MEDS ORDERED: LISI-519 PO (14:16)
[2017-07-14] MEDS ORDERED: POTA-163 PO (14:18)
--- NOTE | 2017-07-14 14:26 | PD ---
HPI Chief Complaint: Complaint Time Seen by Provider: 14:03 Travel History International Travel<30 days: No Contact w/Intl Traveler<30days: No Traveled to known affect area: No History of Present Illness HPI The patient is a 47-year-old female who presents to the emergency department for suprapubic discomfort that radiates to the back, dark-colored urine, myalgias, and generalized weakness. The patient has a history of recurrent urinary tract infections, was treated with Cipro several weeks ago, however, is having persistent symptoms. The patient has been evaluated by urology in the past and underwent cystoscopy, no history of interstitial cystitis. The patient does have a history of recent kidney injury and possible dehydration and was admitted to the hospital for several weeks. She denies any fever, chills, or sweats. The patient's symptoms are moderate, there are no current alleviating or exacerbating factors. The patient has a history of tubal ligation is currently possible. She denies , vaginal discharge, or vaginal bleeding. Symptoms are moderate, possibly exacerbated by UTI, and there are no current alleviating factors. PFSH Past Medical History Hx Anticoagulant Therapy: No Arthritis: No Asthma: No Autoimmune Disease: No Blood Disorders: No Anxiety: No Depression: No Heart Rhythm Problems: No Cancer: No Cardiovascular Problems: No High Cholesterol: No Chemotherapy: No Chest Pain: No Congestive Heart Failure: No COPD: No Cerebrovascular Accident: No Diabetes: No Diminished Hearing: No Endocrine: No Gastrointestinal Disorders: Yes (IBS) GERD: Yes Glaucoma: No Genitourinary: No Headaches: Yes Hepatitis: No Hiatal Hernia: No Hypertension: Yes Immune Disorder: No Implanted Vascular Access Dvce: No Kidney Stones: Yes Musculoskeletal: No Neurologic: No Psychiatric: No Reproductive: No Respiratory: No Immunizations Current: Yes Migraines: No Myocardial Infarction: No Pancreatitis: Yes Radiation Therapy: No Renal Failure: Yes (hx of insufficiency) Seizures: No Sickle Cell Disease: No Sleep Apnea: No Thyroid Disease: No Ulcer: No LMP: approx 6 months ago, pre menopausal per pt : 3 Para: 2 Miscarriage: 1 : 0 Dilation and Curettage (D&C): Yes Tubal Ligation: Yes Past Surgical History Abdominal Surgery: No AICD: No Appendectomy: No Arteriovenous Shunt: No Body Medical Devices: NONE Cardiac Surgery: No Cholecystectomy: No Ear Surgery: No Endocrine Surgery: No Eye Surgery: No Genitourinary Surgery: No Gynecologic Surgery: Yes (TUBAL LIGATION, D & C) Insulin Pump: No Joint Replacement: No Neurologic Surgery: No Oral Surgery: No Pacemaker: No Thoracic Surgery: No Other Surgery: Yes Social History Alcohol Use: Yes (rarely) Tobacco Use: No (QUIT 25 YRS AGO) Substance Use: No Allergies-Medications (Allergen,Severity, Reaction): Coded Allergies: No Known Allergies (Unverified , 07/14/17) Reported Meds & Prescriptions Reported Meds & Active Scripts Active Flintstones Complete (Iron/Minerals/Multivitamins) 60 Mg Tab 1 Tab CHEW DAILY Reported Potassium Chloride ER (Potassium Chloride) 20 Meq Tab 20 Meq PO DAILY Lisinopril 5 Mg Tab 5 Mg PO DAILY Review of Systems Except as stated in HPI: all other systems reviewed are Neg General / Constitutional: No: Fever Cardiovascular: No: Chest Pain or Discomfort Respiratory: No: Shortness of Breath Gastrointestinal: Positive: Nausea, No: Vomiting, Diarrhea, Abdominal Pain Genitourinary: Positive: Urgency, Pelvic Pain (suprapubic discomfort), Other ( dark-colored urine) Musculoskeletal: Positive: Myalgias Physical Exam Narrative GENERAL: Awake, alert, pleasant 47 year-old female who appears her stated age and is in no acute respiratory distress. SKIN: Focused skin assessment warm/dry. HEAD: Atraumatic. Normocephalic. EYES: Pupils equal and round. No scleral icterus. No injection or drainage. ENT: No nasal bleeding or discharge. Mucous membranes pink and moist. NECK: Trachea midline. No JVD. CARDIOVASCULAR: Regular rate and rhythm. No murmur appreciated. RESPIRATORY: No accessory muscle use. Clear to auscultation. Breath sounds equal bilaterally. GASTROINTESTINAL: Abdomen soft, mild suprapubic tenderness. Back: No CVA tenderness. MUSCULOSKELETAL: No obvious deformities. No clubbing. No cyanosis. No edema. NEUROLOGICAL: Awake and alert. No obvious cranial nerve deficits. Motor grossly within normal limits. Normal speech. PSYCHIATRIC: Appropriate mood and affect; insight and judgment normal. Data Data Last Documented VS Vital Signs Date Time Temp Pulse Resp B/P (MAP) Pulse Ox O2 Delivery O2 Flow Rate FiO2 07/14/17 14:32 98 07/14/17 14:00 97.9 101 16 Room Air Orders Orders Complete Blood Count With Diff (07/14/17 14:12) Comprehensive Metabolic Panel (07/14/17 14:12) Lipase (07/14/17 14:12) Urinalysis - C+S If Indicated (07/14/17 14:12) Iv Access Insert/Monitor (07/14/17 14:12) Ecg Monitoring (07/14/17 14:12) Oximetry (07/14/17 14:12) Ondansetron Inj (Zofran Inj) (07/14/17 14:15) Sodium Chlor 0.9% 1000 Ml Inj (Ns 1000 M (07/14/17 14:12) Sodium Chloride 0.9% Flush (Ns Flush) (07/14/17 14:15) Ed Urine Pregnancytest Poc (07/14/17 14:12) Creatine Kinase (Cpk) (07/14/17 14:12) Labs Laboratory Tests Test 07/14/17 14:20 07/14/17 14:30 Urine Collection Type CLEAN CATCH Urine Color YELLOW Urine Turbidity CLEAR Urine pH 7.0 Urine Specific [place] 1.023 Urine Protein NEG mg/dL Urine Glucose (UA) NEG mg/dL Urine Ketones NEG mg/dL Urine Occult Blood NEG Urine Nitrite NEG Urine Bilirubin NEG Urine Leukocyte Esterase NEG Urine RBC 0-3 /hpf Urine WBC 0-2 /hpf Urine Squamous Epithelial Cells > 8 /hpf Urine Yeast (Budding) OCC Microscopic Urinalysis Comment CULT NOT INDICATED Urine Collection Time 14:20 White Blood Count 8.5 TH/MM3 Red Blood Count 3.71 MIL/MM3 Hemoglobin 12.1 GM/DL Hematocrit 36.1 % Mean Corpuscular Volume 97.3 FL Mean Corpuscular Hemoglobin 32.5 PG Mean Corpuscular Hemoglobin Concent 33.5 % Red Cell Distribution Width 12.4 % Platelet Count 430 TH/MM3 Mean Platelet Volume 6.9 FL Neutrophils (%) (Auto) 49.0 % Lymphocytes (%) (Auto) 39.9 % Monocytes (%) (Auto) 8.7 % Eosinophils (%) (Auto) 1.7 % Basophils (%) (Auto) 0.7 % Neutrophils # (Auto) 4.2 TH/MM3 Lymphocytes # (Auto) 3.4 TH/MM3 Monocytes # (Auto) 0.7 TH/MM3 Eosinophils # (Auto) 0.1 TH/MM3 Basophils # (Auto) 0.1 TH/MM3 CBC Comment DIFF FINAL Differential Comment Blood Urea Nitrogen 31 MG/DL Creatinine 1.20 MG/DL Random Glucose 92 MG/DL Total Protein 7.1 GM/DL Albumin 3.4 GM/DL Calcium Level 8.6 MG/DL Alkaline Phosphatase 85 U/L Aspartate Amino Transf (AST/SGOT) 26 U/L Alanine Aminotransferase (ALT/SGPT) 31 U/L Total Bilirubin 0.2 MG/DL Sodium Level 131 MEQ/L Potassium Level 3.8 MEQ/L Chloride Level 93 MEQ/L Carbon Dioxide Level 29.7 MEQ/L Anion Gap 8 MEQ/L Estimat Glomerular Filtration Rate 48 ML/MIN Total Creatine Kinase 53 U/L Lipase 296 U/L MDM Medical Decision Making Medical Screen Exam Complete: Yes Emergency Medical Condition: Yes Medical Record Reviewed: Yes Interpretation(s) Laboratory Tests Test 07/14/17 14:20 07/14/17 14:30 Urine Collection Type CLEAN CATCH Urine Color YELLOW Urine Turbidity CLEAR Urine pH 7.0 Urine Specific [place] 1.023 Urine Protein NEG mg/dL Urine Glucose (UA) NEG mg/dL Urine Ketones NEG mg/dL Urine Occult Blood NEG Urine Nitrite NEG Urine Bilirubin NEG Urine Leukocyte Esterase NEG Urine RBC 0-3 /hpf Urine WBC 0-2 /hpf Urine Squamous Epithelial Cells > 8 /hpf Urine Yeast ([place]) OCC Microscopic Urinalysis Comment CULT NOT INDICATED Urine Collection Time 14:20 White Blood Count 8.5 TH/MM3 Red Blood Count 3.71 MIL/MM3 Hemoglobin 12.1 GM/DL Hematocrit 36.1 % Mean Corpuscular Volume 97.3 FL Mean Corpuscular Hemoglobin 32.5 PG Mean Corpuscular Hemoglobin Concent 33.5 % Red Cell Distribution Width 12.4 % Platelet Count 430 TH/MM3 Mean Platelet Volume 6.9 FL Neutrophils (%) (Auto) 49.0 % Lymphocytes (%) (Auto) 39.9 % Monocytes (%) (Auto) 8.7 % Eosinophils (%) (Auto) 1.7 % Basophils (%) (Auto) 0.7 % Neutrophils # (Auto) 4.2 TH/MM3 Lymphocytes # (Auto) 3.4 TH/MM3 Monocytes # (Auto) 0.7 TH/MM3 Eosinophils # (Auto) 0.1 TH/MM3 Basophils # (Auto) 0.1 TH/MM3 CBC Comment DIFF FINAL Differential Comment Blood Urea Nitrogen 31 MG/DL Creatinine 1.20 MG/DL Random Glucose 92 MG/DL Total Protein 7.1 GM/DL Albumin 3.4 GM/DL Calcium Level 8.6 MG/DL Alkaline Phosphatase 85 U/L Aspartate Amino Transf (AST/SGOT) 26 U/L Alanine Aminotransferase (ALT/SGPT) 31 U/L Total Bilirubin 0.2 MG/DL Sodium Level 131 MEQ/L Potassium Level 3.8 MEQ/L Chloride Level 93 MEQ/L Carbon Dioxide Level 29.7 MEQ/L Anion Gap 8 MEQ/L Estimat Glomerular Filtration Rate 48 ML/MIN Total Creatine Kinase 53 U/L Lipase 296 U/L Differential Diagnosis Differential diagnosis includes cystitis, UTI, pyelonephritis, interstitial cystitis, vaginitis, acute kidney injury, dehydration, diverticulitis, atypical appendicitis. Narrative Course IV was established, labs were drawn and sent, and the patient was placed on cardiac telemetry monitoring and continuous pulse oximetry monitoring. The patient was administered 1 L of IV fluids and Zofran 4 mg intravenously. UA was sent to lab and bedside UA test was obtained. The patient's CPK is normal. UA test is negative. UA is negative for infection. Creatinine is 1.2, previous EMR during hospitalization revealed a creatinine of 3.69 which trended downward to 1.8. It has improved to 1.2. She has no fever, abdominal exam is benign, I doubt diverticulitis or atypical appendicitis. She is advised to monitor for change in stool, fever, or pain that localizes. Patient agrees and understands. She will be provided a copy of her labs at discharge. She is stable for outpatient follow-up. Diagnosis Primary Impression: Nausea Additional Impression: Suprapubic pain Patient Instructions: General Instructions Additional Instructions: Please provide the patient a copy of her labs at discharge. Monitor for signs of fever or abdominal pain that localizes. Follow-up with your primary physician. Return if symptoms worsen or progress. Med/Other Pt SpecificInfo: No Change to Meds Disposition: 01 DISCHARGE HOME Condition: Stable Sergio Chavez MD Jul 14, 2017 14:26
[2017-07-14 14:32] VITALS: O2SAT 98
[2017-07-14 14:37] LABS: AUTOMATED NEUTROPHIL # 4.2 TH/MM3 (1.8-7.7); BASOPHIL # 0.1 TH/MM3 (0-0.2); BASOPHIL % 0.7 % (0.0-2.0); EOSINOPHIL # 0.1 TH/MM3 (0-0.4); EOSINOPHIL % 1.7 % (0.0-4.0); HEMATOCRIT 36.1 % (35.0-46.0); HEMO FLAGS DIFF FINAL; LYMPH % 39.9 % (9.0-44.0); LYMPHOCYTE # 3.4 TH/MM3 (1.0-4.8); MEAN CELL VOLUME 97.3 FL (80.0-100.0); MEAN CORPUSCULAR HEMOGLOBIN 32.5 PG (27.0-34.0); MEAN CORPUSCULAR HGB CONC 33.5 % (32.0-36.0); MONO % 8.7 % (0.0-8.0); PLATELET COUNT 430 TH/MM3 (150-450); RED BLOOD COUNT 3.71 MIL/MM3 (4.00-5.30); RED CELL DISTRIBUTION WIDTH 12.4 % (11.6-17.2); WHITE BLOOD COUNT 8.5 TH/MM3 (4.0-11.0)
[2017-07-14 14:38] LABS: BLOOD, URINE NEG (NEG); GLUCOSE,URINE NEG (NEG); KETONE, URINE NEG (NEG); NITRITE,URINE NEG (NEG)
[2017-07-14 14:43] LABS: CHLORIDE 93 MEQ/L (98-107); POTASSIUM 3.8 MEQ/L (3.5-5.1); SODIUM (NA) 131 MEQ/L (136-145)
[2017-07-14 14:45] LABS: METHOD OF COLLECTION CLEAN CATCH; URINE COLOR YELLOW (YELLW/STRAW)
[2017-07-14 14:46] LABS: COMMENT (UR) CULT NOT INDICATED; CULTURE IF INDICATED CULT NOT INDICATED; RBC, URINE 0-3 /hpf (0-3); SQUAMOUS EPITHELIAL CELL URINE > 8 /hpf (0-5); WBC, URINE 0-2 /hpf (0-5)
[2017-07-14 14:47] LABS: ANION GAP 8 MEQ/L (5-15); BICARBONATE 29.7 MEQ/L (21.0-32.0)
[2017-07-14 14:48] LABS: BLOOD UREA NITROGEN 31 MG/DL (7-18)
[2017-07-14 14:50] LABS: ALT (GPT) 31 U/L (10-53); AST (GOT) 26 U/L (15-37)
[2017-07-14 14:51] LABS: GLOMERULAR FILTRATION RATE 48 ML/MIN (>89)
[2017-07-14 14:52] LABS: TOTAL BILIRUBIN ADULT 0.2 MG/DL (0.2-1.0)
[2017-07-14 14:53] LABS: ALKALINE PHOSPHATASE 85 U/L (45-117)
[2017-07-14 15:23] LABS: CREATINE KINASE 53 U/L (26-192)
== END 2017-07-14 15:46 | disposition home or self-care (01) ==
LOC: PHED 13:53
DX: R53.1 Weakness (principal); R11.0 Nausea; R10.9 Unspecified abdominal pain; I10 Essential (primary) hypertension
CPT/HCPCS: 80053; 81001; 82550; 83690; 84703; 85025; 96374; 99284; J2405; J7030

== ENCOUNTER 2017-12-20 18:56 | Emergency (ER) | payer OTHER ==
[~2017-12-20] VITALS: Ht 162.6 cm; Wt 55.8 kg
[~2017-12-20 18:56] MED LIST changes: -AMLO10TA2 PO; +LISI-519 PO; -PANT40TA3 PO; +POTA-163 PO
[2017-12-20 19:05] VITALS: BP 166/99; PULSE 105; RESP 16; TEMP 97.6; O2SAT 99
--- NOTE | 2017-12-20 19:39 | PD ---
HPI Chief Complaint: Flank/Kidney Pain Time Seen by Provider: 19:28 Travel History International Travel<30 days: No Contact w/Intl Traveler<30days: No Traveled to known affect area: No History of Present Illness HPI The patient is a 47-year-old female that has a history of stage II renal insufficiency and frequent urinary tract infections who complains of bilateral flank pain for several weeks. She just was recently diagnosed with a urinary tract infection and 2 or 3 days ago completed a 10 day course of Cipro. The patient denies any fever. She does have some slight frequency and urgency. She does have nausea and did vomit this morning. She does not have myalgias except for her bilateral flank pain. Her pain is a 3/10 and dull. 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 She states there is no possibility of . PFSH Past Medical History Hx Anticoagulant Therapy: No Arthritis: No Asthma: No Autoimmune Disease: No Blood Disorders: No Anxiety: No Depression: No Heart Rhythm Problems: No Cancer: No Cardiovascular Problems: No High Cholesterol: No Chemotherapy: No Chest Pain: No Congestive Heart Failure: No COPD: No Cerebrovascular Accident: No Diabetes: No Diminished Hearing: No Endocrine: No Gastrointestinal Disorders: Yes (Celiac disease) GERD: Yes Glaucoma: No Genitourinary: Yes (kidney disease) Headaches: Yes Hepatitis: No Hiatal Hernia: No Heparin Induced Thrombocytopen: No Hypertension: Yes Immune Disorder: No Implanted Vascular Access Dvce: No Kidney Stones: Yes Musculoskeletal: No Neurologic: No Psychiatric: No Reproductive: No Respiratory: No Immunizations Current: Yes Migraines: No Myocardial Infarction: No Pancreatitis: Yes Radiation Therapy: No Renal Failure: Yes (hx of insufficiency) Seizures: No Sickle Cell Disease: No Sleep Apnea: No Thyroid Disease: No Ulcer: No ?: Not LMP: 12-23-18 : 3 Para: 2 Miscarriage: 1 : 0 Dilation and Curettage (D&C): Yes Tubal Ligation: Yes Past Surgical History Abdominal Surgery: No AICD: No Appendectomy: No Arteriovenous Shunt: No Body Medical Devices: NONE Cardiac Surgery: No Cholecystectomy: No Ear Surgery: No Endocrine Surgery: No Eye Surgery: No Genitourinary Surgery: No Gynecologic Surgery: Yes (TUBAL LIGATION, D & C) Insulin Pump: No Joint Replacement: No Neurologic Surgery: No Oral Surgery: No Pacemaker: No Thoracic Surgery: No Other Surgery: Yes Social History Alcohol Use: Yes (socially ) Tobacco Use: No Substance Use: No Allergies-Medications (Allergen,Severity, Reaction): Coded Allergies: No Known Allergies (Unverified Adverse Reaction, Unknown, 12/20/17) Reported Meds & Prescriptions Reported Meds & Active Scripts Active Flintstones Complete (Iron/Minerals/Multivitamins) 60 Mg Tab 1 Tab CHEW DAILY Reported Potassium Chloride ER (Potassium Chloride) 20 Meq Tab 20 Meq PO DAILY Lisinopril 5 Mg Tab 5 Mg PO DAILY Review of Systems Except as stated in HPI: all other systems reviewed are Neg Physical Exam Narrative GENERAL: The patient is alert, oriented 3 and slight apparent distress with her bilateral flank pain And nausea. Her vital signs show blood pressure 166/99 with heart rate of 105 and are otherwise normal. SKIN: Focused skin assessment warm/dry. HEAD: Atraumatic. Normocephalic. EYES: Pupils equal and round. No scleral icterus. No injection or drainage. ENT: No nasal bleeding or discharge. Mucous membranes pink and moist. NECK: Trachea midline. No JVD. CARDIOVASCULAR: Regular rate and rhythm. No murmur appreciated. RESPIRATORY: No accessory muscle use. Clear to auscultation. Breath sounds equal bilaterally. GASTROINTESTINAL: Abdomen soft, she does have minimal discomfort in the bilateral flanks and suprapubic regions to deep direct palpation, nondistended. Hepatic and splenic margins not palpable. No guarding or rebound is present. MUSCULOSKELETAL: No obvious deformities. No clubbing. No cyanosis. No edema. NEUROLOGICAL: Awake and alert. No obvious cranial nerve deficits. Motor grossly within normal limits. Normal speech. PSYCHIATRIC: Appropriate mood and affect; insight and judgment normal. Data Data Last Documented VS Vital Signs Date Time Temp Pulse Resp B/P (MAP) Pulse Ox O2 Delivery O2 Flow Rate FiO2 12/20/17 20:39 95 16 125/78 (94) 100 Room Air 12/20/17 19:05 97.6 Orders Orders Urinalysis - C+S If Indicated (12/20/17 19:28) Influenzae A/B Antigen (12/20/17 19:28) Complete Blood Count With Diff (12/20/17 19:34) Comprehensive Metabolic Panel (12/20/17 19:34) Sodium Chlor 0.9% 1000 Ml Inj (Ns 1000 M (12/20/17 19:45) Ondansetron Inj (Zofran Inj) (12/20/17 19:45) Labs Laboratory Tests Test 12/20/17 19:45 12/20/17 20:00 Urine Color YELLOW Urine Turbidity SLIGHT Urine pH 7.0 Urine Specific [place] 1.026 Urine Protein TRACE mg/dL Urine Glucose (UA) NEG mg/dL Urine Ketones NEG mg/dL Urine Occult Blood NEG Urine Nitrite NEG Urine Bilirubin NEG Urine Leukocyte Esterase NEG Urine WBC 0-2 /hpf Urine Squamous Epithelial Cells 6-8 /hpf Urine Hyaline Casts 3-5 /lpf Urine Mucus OCC /lpf Microscopic Urinalysis Comment CULT NOT INDICATED White Blood Count 7.5 TH/MM3 Red Blood Count 3.93 MIL/MM3 Hemoglobin 13.0 GM/DL Hematocrit 38.5 % Mean Corpuscular Volume 97.9 FL Mean Corpuscular Hemoglobin 33.1 PG Mean Corpuscular Hemoglobin Concent 33.8 % Red Cell Distribution Width 13.1 % Platelet Count 404 TH/MM3 Mean Platelet Volume 7.3 FL Neutrophils (%) (Auto) 64.1 % Lymphocytes (%) (Auto) 29.8 % Monocytes (%) (Auto) 3.7 % Eosinophils (%) (Auto) 2.0 % Basophils (%) (Auto) 0.4 % Neutrophils # (Auto) 4.8 TH/MM3 Lymphocytes # (Auto) 2.2 TH/MM3 Monocytes # (Auto) 0.3 TH/MM3 Eosinophils # (Auto) 0.2 TH/MM3 Basophils # (Auto) 0.0 TH/MM3 CBC Comment DIFF FINAL Differential Comment Blood Urea Nitrogen 14 MG/DL Creatinine 0.96 MG/DL Random Glucose 98 MG/DL Total Protein 7.3 GM/DL Albumin 3.4 GM/DL Calcium Level 9.0 MG/DL Alkaline Phosphatase 90 U/L Aspartate Amino Transf (AST/SGOT) 32 U/L Alanine Aminotransferase (ALT/SGPT) 36 U/L Total Bilirubin 0.4 MG/DL Sodium Level 138 MEQ/L Potassium Level 4.1 MEQ/L Chloride Level 104 MEQ/L Carbon Dioxide Level 25.4 MEQ/L Anion Gap 9 MEQ/L Estimat Glomerular Filtration Rate 62 ML/MIN [facility] Medical Decision Making Medical Screen Exam Complete: Yes Emergency Medical Condition: Yes Medical Record Reviewed: Yes Interpretation(s) The urine shows specific gravity 1.026 and 3-5 hyaline cast but is otherwise unremarkable and culture is not indicated. The influenza a/B antigen is negative for flu a and flu B antigen. The CBC is completely normal. The complete metabolic profile shows a GFR of 62 but is otherwise unremarkable. Differential Diagnosis Pyelonephritis, cystitis, flu syndrome, nonspecific viral syndrome, gastritis Narrative Course The patient appears to have a viral gastritis. The CBC has a normal white count suggesting possible viral syndrome. The patient should hydrate herself with clear liquids and is given Zofran for nausea. She is also given a work excuse for 5 days. Diagnosis Primary Impression: Viral gastritis Additional Instructions: As we discussed, increase her clear liquids using liquids like Gatorade. Patient released stay well-hydrated. Rest and avoid fatty foods. Follow-up with a primary care physician this week. Med/Other Pt SpecificInfo: Prescription(s) given Scripts Ondansetron (Zofran) 8 Mg Tab 8 MG PO TID for Nausea/Vomiting, #21 TAB 0 Refills Prov: Suleman Montoya MD 12/20/17 Disposition: 01 DISCHARGE HOME Condition: Stable Suleman Montoya MD Dec 20, 2017 19:38
[2017-12-20] MEDS ORDERED: SODIUM CHLOR 0.9% 1000 ML INJ 1,000 ML IV SCH (19:45)
[2017-12-20] MEDS ORDERED: ONDANSETRON HCL 4 MG/2 ML VIAL IV ONE (19:45)
[2017-12-20 20:12] LABS: AUTOMATED NEUTROPHIL # 4.8 TH/MM3 (1.8-7.7); BASOPHIL % 0.4 % (0.0-2.0); EOSINOPHIL # 0.2 TH/MM3 (0-0.4); HEMATOCRIT 38.5 % (35.0-46.0); LYMPH % 29.8 % (9.0-44.0); LYMPHOCYTE # 2.2 TH/MM3 (1.0-4.8); MEAN CELL VOLUME 97.9 FL (80.0-100.0); MEAN CORPUSCULAR HEMOGLOBIN 33.1 PG (27.0-34.0); MEAN CORPUSCULAR HGB CONC 33.8 % (32.0-36.0); MEAN PLATELET VOLUME 7.3 FL (7.0-11.0); MONO % 3.7 % (0.0-8.0); MONOCYTE # 0.3 TH/MM3 (0-0.9); NEUT % 64.1 % (16.0-70.0); PLATELET COUNT 404 TH/MM3 (150-450); RED BLOOD COUNT 3.93 MIL/MM3 (4.00-5.30); RED CELL DISTRIBUTION WIDTH 13.1 % (11.6-17.2); WHITE BLOOD COUNT 7.5 TH/MM3 (4.0-11.0)
[2017-12-20 20:16] LABS: BILIRUBIN, URINE NEG (NEG); BLOOD, URINE NEG (NEG); GLUCOSE,URINE NEG (NEG); KETONE, URINE NEG (NEG); NITRITE,URINE NEG (NEG); URINE LEUKOCYTE ESTERASE NEG (NEG)
[2017-12-20 20:20] LABS: CHLORIDE 104 MEQ/L (98-107); SODIUM (NA) 138 MEQ/L (136-145)
[2017-12-20 20:21] LABS: URINE COLOR YELLOW (YELLW/STRAW)
[2017-12-20 20:23] LABS: ALBUMIN 3.4 GM/DL (3.4-5.0); BICARBONATE 25.4 MEQ/L (21.0-32.0); GLUCOSE,RANDOM 98 MG/DL (74-106)
[2017-12-20 20:24] LABS: BLOOD UREA NITROGEN 14 MG/DL (7-18)
[2017-12-20 20:26] LABS: ALT (GPT) 36 U/L (10-53); AST (GOT) 32 U/L (15-37)
[2017-12-20 20:27] LABS: CREATININE 0.96 MG/DL (0.50-1.00); GLOMERULAR FILTRATION RATE 62 ML/MIN (>89)
[2017-12-20 20:28] LABS: TOTAL BILIRUBIN ADULT 0.4 MG/DL (0.2-1.0); TOTAL PROTEIN 7.3 GM/DL (6.4-8.2)
[2017-12-20 20:28] LABS: MUCUS URINE OCC /lpf (OCC)
[2017-12-20 20:29] LABS: WBC, URINE 0-2 /hpf (0-5)
[2017-12-20 20:29] LABS: ALKALINE PHOSPHATASE 90 U/L (45-117)
[2017-12-20 20:39] VITALS: BP 125/78; PULSE 95; RESP 16; O2SAT 100
[2017-12-20] MEDS ORDERED: ZOFR8TAB PO (20:50)
[2017-12-20 21:13] VITALS: BP 120/77; TEMP 98.4
== END 2017-12-20 21:20 | disposition home or self-care (01) ==
LOC: PHED 18:56
DX: A08.4 Viral intestinal infection, unspecified (principal); N28.9 Disorder of kidney and ureter, unspecified; K90.0 Celiac disease; K21.9 Gastro-esophageal reflux disease without esophagitis; I10 Essential (primary) hypertension; Z87.19 Personal history of other diseases of the digestive system; Z87.442 Personal history of urinary calculi; Z79.899 Other long term (current) drug therapy
CPT/HCPCS: 80053; 81001; 85025; 87804; 96361; 96374; 99284; J2405; J7030

== ENCOUNTER 2018-04-27 16:53 | Emergency (ER) | payer OTHER ==
[~2018-04-27] VITALS: Ht 162.6 cm; Wt 56.0 kg
[~2018-04-27 16:53] MED LIST changes: +ZOFR8TAB PO
[2018-04-27 17:10] VITALS: BP 148/80; PULSE 99; RESP 16; TEMP 98.5; O2SAT 97
[2018-04-27] MEDS ORDERED: ONDANSETRON ODT 4 MG TAB PO ONE (17:30)
--- NOTE | 2018-04-27 17:39 | PD ---
HPI Chief Complaint: GI Complaint Time Seen by Provider: 17:22 Travel History International Travel<30 days: No Contact w/Intl Traveler<30days: No Traveled to known affect area: No History of Present Illness HPI 47yo F with PMH of kidney disease and recurrent UTIs here with multiple vague symptoms. Said she just does not feel well. Pt has been having nausea for weeks and vomiting today. Said she has been feeling flu like symptoms like muscle aches. Said she feels like that cant take good deep breaths for weeks. As well as some chest tightness/soreness for weeks. Has mid back pain but not when I palpate it. Denies any fever, abdominal pain, focal weakness or numbness. Pt said she feels like she has a urine infection but don't know why. PFSH Past Medical History Hx Anticoagulant Therapy: No Arthritis: No Asthma: No Autoimmune Disease: No Blood Disorders: No Anxiety: No Depression: No Heart Rhythm Problems: No Cancer: No Cardiovascular Problems: No High Cholesterol: No Chemotherapy: No Chest Pain: No Congestive Heart Failure: No COPD: No Cerebrovascular Accident: No Diabetes: No Diminished Hearing: No Endocrine: No Gastrointestinal Disorders: Yes (Celiac disease) GERD: Yes Glaucoma: No Genitourinary: Yes (kidney disease) Headaches: Yes Hepatitis: No Hiatal Hernia: No Heparin Induced Thrombocytopen: No Hypertension: Yes Immune Disorder: No Implanted Vascular Access Dvce: No Kidney Stones: Yes Musculoskeletal: No Neurologic: No Psychiatric: No Reproductive: No Respiratory: No Immunizations Current: Yes Migraines: No Myocardial Infarction: No Pancreatitis: Yes Radiation Therapy: No Renal Failure: Yes (hx of insufficiency) Seizures: No Sickle Cell Disease: No Sleep Apnea: No Thyroid Disease: No Ulcer: No Influenza Vaccination: No ?: Not LMP: 6 months ago : 3 Para: 2 Miscarriage: 1 : 0 Dilation and Curettage (D&C): Yes Tubal Ligation: Yes Past Surgical History Abdominal Surgery: No AICD: No Appendectomy: No Arteriovenous Shunt: No Body Medical Devices: NONE Cardiac Surgery: No Cholecystectomy: No Ear Surgery: No Endocrine Surgery: No Eye Surgery: No Genitourinary Surgery: No Gynecologic Surgery: Yes (TUBAL LIGATION, D & C) Insulin Pump: No Joint Replacement: No Neurologic Surgery: No Oral Surgery: No Pacemaker: No Thoracic Surgery: No Other Surgery: Yes (esophageal dilatation) Social History Alcohol Use: Yes (weekly) Tobacco Use: No Substance Use: No Allergies-Medications (Allergen,Severity, Reaction): Coded Allergies: No Known Allergies (Unverified Adverse Reaction, Unknown, 04/27/18) Reported Meds & Prescriptions Reported Meds & Active Scripts Active Zofran Odt (Ondansetron Odt) 4 Mg Tab 4 Mg SL Q12HR PRN Cephalexin 500 Mg Cap 500 Mg PO Q12H 7 Days Zofran (Ondansetron HCl) 8 Mg Tab 8 Mg PO TID Flintstones Complete (Iron/Minerals/Multivitamins) 60 Mg Tab 1 Tab CHEW DAILY Reported Potassium Chloride ER (Potassium Chloride) 20 Meq Tab 20 Meq PO DAILY Lisinopril 5 Mg Tab 5 Mg PO DAILY Review of Systems Except as stated in HPI: all other systems reviewed are Neg Physical Exam Narrative GENERAL: 47yo F not in distress. SKIN: Focused skin assessment warm/dry. HEAD: Atraumatic. Normocephalic. EYES: Pupils equal and round. No scleral icterus. No injection or drainage. ENT: No nasal bleeding or discharge. Mucous membranes pink and moist. NECK: Trachea midline. No JVD. CARDIOVASCULAR: Regular rate and rhythm. No murmur appreciated. RESPIRATORY: No accessory muscle use. Clear to auscultation. Breath sounds equal bilaterally. GASTROINTESTINAL: Abdomen soft, non-tender, nondistended. MUSCULOSKELETAL: No obvious deformities. No clubbing. No cyanosis. No edema. NEUROLOGICAL: Awake and alert. No obvious cranial nerve deficits. Motor grossly within normal limits in all extremities. Sensation intact. Normal speech. PSYCHIATRIC: Appropriate mood and affect; insight and judgment normal. Data Data Last Documented VS Vital Signs Date Time Temp Pulse Resp B/P (MAP) Pulse Ox O2 Delivery O2 Flow Rate FiO2 04/27/18 18:20 97 18 131/90 (104) 98 Room Air 04/27/18 17:10 98.5 Orders Orders Complete Blood Count With Diff (04/27/18 17:29) Basic Metabolic Panel (Bmp) (04/27/18 17:29) Lipase (04/27/18 17:29) Creatine Kinase (Cpk) (04/27/18 17:29) Thyroid Stimulating Hormone (04/27/18 17:29) Urinalysis - C+S If Indicated (04/27/18 17:29) Ed Urine Pregnancytest Poc (04/27/18 17:29) Ondansetron Odt (Zofran Odt) (04/27/18 17:30) Electrocardiogram (04/27/18 ) Chest, Single Ap (04/27/18 ) Troponin I (04/27/18 17:55) Urine Culture (04/27/18 17:55) Ed Discharge Order (04/27/18 18:48) Labs Laboratory Tests Test 04/27/18 17:55 White Blood Count 7.8 TH/MM3 Red Blood Count 3.69 MIL/MM3 Hemoglobin 12.4 GM/DL Hematocrit 36.2 % Mean Corpuscular Volume 98.2 FL Mean Corpuscular Hemoglobin 33.7 PG Mean Corpuscular Hemoglobin Concent 34.3 % Red Cell Distribution Width 13.0 % Platelet Count 399 TH/MM3 Mean Platelet Volume 7.6 FL Neutrophils (%) (Auto) 59.1 % Lymphocytes (%) (Auto) 30.5 % Monocytes (%) (Auto) 7.7 % Eosinophils (%) (Auto) 2.2 % Basophils (%) (Auto) 0.5 % Neutrophils # (Auto) 4.6 TH/MM3 Lymphocytes # (Auto) 2.4 TH/MM3 Monocytes # (Auto) 0.6 TH/MM3 Eosinophils # (Auto) 0.2 TH/MM3 Basophils # (Auto) 0.0 TH/MM3 CBC Comment DIFF FINAL Differential Comment Urine Color YELLOW Urine Turbidity CLEAR Urine pH 8.5 Urine Specific [place] 1.010 Urine Protein TRACE mg/dL Urine Glucose (UA) NEG mg/dL Urine Ketones NEG mg/dL Urine Occult Blood NEG Urine Nitrite NEG Urine Bilirubin NEG Urine Urobilinogen 0.2 MG/DL Urine Leukocyte Esterase NEG Urine RBC 0-3 /hpf Urine WBC 3-5 /hpf Urine Squamous Epithelial Cells > 8 /hpf Urine Bacteria MOD /hpf Microscopic Urinalysis Comment CULTURE INDICATED Blood Urea Nitrogen 17 MG/DL Creatinine 1.00 MG/DL Random Glucose 88 MG/DL Calcium Level 8.4 MG/DL Sodium Level 134 MEQ/L Potassium Level 5.0 MEQ/L Chloride Level 101 MEQ/L Carbon Dioxide Level 24.4 MEQ/L Anion Gap 9 MEQ/L Estimat Glomerular Filtration Rate 59 ML/MIN Total Creatine Kinase 95 U/L Troponin I LESS THAN 0.02 NG/ML Lipase 535 U/L Thyroid Stimulating Hormone 3rd Gen 1.890 uIU/ML MDM Medical Decision Making Medical Screen Exam Complete: Yes Emergency Medical Condition: Yes Interpretation(s) EKG: NSR 96bpm. Normal axis. Diffuse mild ST depression but pt has always have ST depressions in old EKGs. Similar to prior EKG. Differential Diagnosis UTI vs. dehydration vs. electrolyte abnormality vs. rhabdomyolysis Narrative Course 47yo well appearing female here with multiple vague complaints. Will obtain basic labs including cardiac enzymes since pt said she has chest tightness. Chest pain is very atypical. Also will obtain urine for urinalysis. Labs reviewed, no leukocytosis. H/H normal. Troponin negative. Lipase mildly elevated at 535. Pt has no abdominal pain, will have pt follow up with primary care physician as outpatient. Creatinine normal at 1.0. TSH normal. UA showed moderate bacteria. > squamous. Discussed with patient and she prefers to have an antibiotic since she gets frequent urine infections. CXR negative. Pt given zofran and feels much better. She is tolerating PO and wants to go home. Do not think chest pain is cardiac. Return precautions given. Diagnosis Primary Impression: UTI (urinary tract infection) Qualified Codes: N39.0 - Urinary tract infection, site not specified Patient Instructions: General Instructions Departure Forms: Tests/Procedures Additional Instructions: Please follow up with your primary care physician regarding your mildly elevated lipase of 535. Please return to the ED if symptoms worsen. Med/Other Pt SpecificInfo: Prescription(s) given Scripts Ondansetron Odt (Zofran Odt) 4 Mg Tab 4 MG SL Q12HR Y for Nausea/Vomiting, #6 TAB 0 Refills Prov: Shae Forrester DO 04/27/18 Cephalexin (Cephalexin) 500 Mg Cap 500 MG PO Q12H for Infection for 7 Days, #14 CAP 0 Refills Prov: Shae Forrester DO 04/27/18 Disposition: 01 DISCHARGE HOME Condition: Stable Shae Forrester DO Apr 27, 2018 17:39
[2018-04-27 18:03] LABS: AUTOMATED NEUTROPHIL # 4.6 TH/MM3 (1.8-7.7); BASOPHIL % 0.5 % (0.0-2.0); EOSINOPHIL # 0.2 TH/MM3 (0-0.4); EOSINOPHIL % 2.2 % (0.0-4.0); HEMATOCRIT 36.2 % (35.0-46.0); HEMOGLOBIN 12.4 GM/DL (11.6-15.3); LYMPH % 30.5 % (9.0-44.0); LYMPHOCYTE # 2.4 TH/MM3 (1.0-4.8); MEAN CELL VOLUME 98.2 FL (80.0-100.0); MEAN CORPUSCULAR HEMOGLOBIN 33.7 PG (27.0-34.0); MEAN CORPUSCULAR HGB CONC 34.3 % (32.0-36.0); MEAN PLATELET VOLUME 7.6 FL (7.0-11.0); MONO % 7.7 % (0.0-8.0); MONOCYTE # 0.6 TH/MM3 (0-0.9); NEUT % 59.1 % (16.0-70.0); PLATELET COUNT 399 TH/MM3 (150-450); RED BLOOD COUNT 3.69 MIL/MM3 (4.00-5.30); WHITE BLOOD COUNT 7.8 TH/MM3 (4.0-11.0)
[2018-04-27 18:04] LABS: BILIRUBIN, URINE NEG (NEG); BLOOD, URINE NEG (NEG); GLUCOSE,URINE NEG (NEG); KETONE, URINE NEG (NEG); NITRITE,URINE NEG (NEG); PH, URINE 8.5 (5.0-8.5); URINE LEUKOCYTE ESTERASE NEG (NEG)
[2018-04-27 18:05] LABS: URINE COLOR YELLOW (YELLW/STRAW)
[2018-04-27 18:12] LABS: BACTERIA, URINE MOD /hpf; RBC, URINE 0-3 /hpf (0-3); SQUAMOUS EPITHELIAL CELL URINE > 8 /hpf (0-5)
[2018-04-27 18:15] LABS: CHLORIDE 101 MEQ/L (98-107); SODIUM (NA) 134 MEQ/L (136-145)
[2018-04-27 18:17] LABS: CALCIUM 8.4 MG/DL (8.5-10.1)
[2018-04-27 18:18] LABS: BICARBONATE 24.4 MEQ/L (21.0-32.0); BLOOD UREA NITROGEN 17 MG/DL (7-18); GLUCOSE,RANDOM 88 MG/DL (74-106)
[2018-04-27 18:20] VITALS: BP 131/90; PULSE 97; RESP 18; O2SAT 98
[2018-04-27 18:21] LABS: GLOMERULAR FILTRATION RATE 59 ML/MIN (>89)
[2018-04-27 18:26] LABS: TROPONIN I LESS THAN 0.02 NG/ML (0.02-0.05)
--- NOTE | 2018-04-27 18:28 | RADRPT ---
EXAM DATE: 04/27/2018 6:23 PM EDT AGE/SEX: 47 years / Female INDICATIONS: Shortness of breath. CLINICAL DATA: This is the patient's initial encounter. Patient reports that signs and symptoms have been present for 2 days and indicates a pain score of 0/10. MEDICAL/SURGICAL HISTORY: None. None. COMPARISON: [facility], CHEST SINGLE AP, 03/14/2011. . FINDINGS: A single AP view of the chest demonstrates the lungs to be symmetrically aerated without evidence of mass, infiltrate or effusion. The cardiomediastinal contours are unremarkable. Osseous structures a re intact. CONCLUSION: Negative chest Electronically signed by: Juan Cade MD 04/27/2018 6:26 PM EDT
[2018-04-27] MEDS ORDERED: ZOFR4TAB3 SL (18:47)
[2018-04-27] MEDS ORDERED: CEPH500C PO (18:47)
--- NOTE | 2018-04-28 09:12 | EKG ---
Date Performed: 04/27/2018 Time Performed: 17:49:58 PTAGE: 47 years EKG: Sinus rhythm MINIMAL ST DEPRESSION BORDERLINE ECG PREVIOUS TRACING : 04/20/2016 00.43 DOCTOR: Jj Larson Interpretating Date/Time 04/28/2018 09:11:24
== END 2018-04-27 19:32 | disposition home or self-care (01) ==
LOC: PHED 16:53
DX: N39.0 Urinary tract infection, site not specified (principal); R94.31 Abnormal electrocardiogram [ECG] [EKG]; R07.89 Other chest pain; R06.02 Shortness of breath; R11.2 Nausea with vomiting, unspecified; I12.9 Hypertensive chronic kidney disease with stage 1 through stage 4 chronic kidney disease, or unspecified chronic kidney disease; N18.9 Chronic kidney disease, unspecified; K21.9 Gastro-esophageal reflux disease without esophagitis; K90.0 Celiac disease; Z87.442 Personal history of urinary calculi
CPT/HCPCS: 71045; 80048; 81001; 82550; 83690; 84443; 84484; 84703; 85025; 87086; 93005; 99285

== ENCOUNTER 2019-01-13 17:34 | Observation (INO) ==
[2019-01-13 18:38] LABS: Bilirubin,Urine Negative (Negative); Clarity,Urine Clear (Clear); Color,Urine Yellow (Yellw/Straw); Glucose,Urine (UA) Negative (Negative); Leukocyte Esterase,Urine Small (Negative); Nitrite,Urine Negative (Negative); PH,Urine 8.5 (5.0-8.5); Urobilinogen,Urine 0.2 mg/dL (Less than 2)
[2019-01-13] MEDS: Sod Chloride 0.9% Inj 1,000 ML IV.CONT SCH (18:43)
[2019-01-13 18:50] LABS: RBC,Urine 0-3 /hpf (0-3); Squamous Epithelial Cell,Urine Greater than 10 /hpf (0-5)
[2019-01-13 18:51] LABS: Bacteria,Urine Moderate /hpf
[2019-01-13 18:57] LABS: Alanine Aminotransferase 34 U/L (10-53); Albumin 4.3 g/dL (3.4-5.0); Alkaline Phosphatase 113 U/L (45-117); Anion Gap 7 meq/L (5-15); Aspartate Aminotransferase 34 U/L (15-37); Blood Urea Nitrogen 16 mg/dL (7-18); Calcium 10.5 mg/dL (8.5-10.1); Carbon Dioxide 42.7 meq/L (21.0-32.0); Chloride 78 meq/L (98-107); Glomerular Filtration Rate 27 mL/min (>89); Glucose,Random 96 mg/dL (74-106); Sodium 128 meq/L (136-145); Total Protein 8.7 g/dL (6.4-8.2)
[2019-01-13 18:58] LABS: Baso % (Auto) 0.6 % (0.0-2.0); Eos # (Auto) 0.1 th/mm3 (0.0-0.4); Hemoglobin 14.3 gm/dL (11.6-15.3); Lymph # (Auto) 2.7 th/mm3 (1.0-4.8); Lymph % (Auto) 36.3 % (9.0-44.0); Mean Corpuscular HGB Conc 32.6 % (32.0-36.0); Mean Corpuscular Hemoglobin 31.5 pg (27.0-34.0); Mean Corpuscular Volume 96.5 fL (80.0-100.0); Mean Platelet Volume 7.8 fL (7.0-11.0); Mono # (Auto) 0.5 th/mm3 (0.0-0.9); Mono % (Auto) 7.2 % (0.0-8.0); Neut # (Auto) 4.1 th/mm3 (1.8-7.7); Neut % (Auto) 53.9 % (16.0-70.0); Platelet Count 447 th/mm3 (150-450); Potassium 2.5 meq/L (3.5-5.1); Red Blood Count 4.56 mil/mm3 (4.00-5.30); Red Cell Distribution Width 11.8 % (11.6-17.2); White Blood Count 7.4 th/mm3 (4.0-11.0)
[2019-01-13] MEDS ORDERED: Potassium Chlor 20 mEq Premix 20 MEQ/100 ML PIGGYBACK IV.SIG ONE (19:08)
[2019-01-13] MEDS ORDERED: Sod Chloride 0.9% Inj 1,000 ML IV.SIG ONE (19:08)
--- NOTE | 2019-01-13 19:23 | ED ---
HPI General Chief complaint: Dizziness Stated complaint: kidney disease/nausea/weak Time Seen by Provider: 01/13/19 18:02 History of Present Illness HPI narrative: 48 female history of CKD stage III, frequent UTI here for evaluation of generalized weakness. She feels nauseated but no vomiting, over the last 2 days she is not been feeling well, easily tired. No chest pain or shortness of breath, no focal weakness or sensory loss, no slurred speech. She reports abdominal bloating but she follows up with GI for that. No other complaints. Related Data Home Medications Medication Instructions Recorded Confirmed lisinopril 2.5 mg PO DAILY 10/08/18 01/13/19 Previous Rx's Medication Instructions Recorded potassium chloride [Klor-Con 10] 10 meq PO BID tab 01/14/19 Allergies Allergy/AdvReac Type Severity Reaction Status Date / Time No Known Allergies Allergy Verified 01/13/19 17:52 Review of Systems ROS: all other systems reviewed are negative REPLACED BY [facility] Social History Social History Substance History: No History of Abuse Second Hand Smoke Exposure: No Smoking Status: Never smoker Tobacco Type: Cigarettes How Often Do You Have a Drink Containing Alcohol: Monthly or less Recent Travel [facility] within the Last 8 Weeks: No Recent Out of Country Travel within the Last 8 Weeks: No Immunization History Tetanus Immunization: <5 Years Exam Narrative Exam Narrative: GENERAL: Alert oriented x3 no acute distress. SKIN: Focused skin assessment warm/dry. HEAD: Atraumatic. Normocephalic. EYES: Pupils equal and round. No scleral icterus. No injection or drainage. ENT: No nasal bleeding or discharge. Mucous membranes pink and moist. NECK: Trachea midline. No JVD. CARDIOVASCULAR: Regular rate and rhythm. No murmur appreciated. RESPIRATORY: No accessory muscle use. Clear to auscultation. Breath sounds equal bilaterally. GASTROINTESTINAL: Abdomen soft, non-tender, nondistended. Hepatic and splenic margins not palpable. MUSCULOSKELETAL: No obvious deformities. No clubbing. No cyanosis. No edema. NEUROLOGICAL: Awake and alert. No obvious cranial nerve deficits. Motor grossly within normal limits. Normal speech. PSYCHIATRIC: Appropriate mood and affect; insight and judgment normal. Course Initial Documented Vital Signs Temperature 98.0 F 01/13/19 17:48 Pulse Rate 87 01/13/19 17:48 Respiratory Rate 16 01/13/19 17:48 Blood Pressure 164/97 H 01/13/19 17:48 Pulse Oximetry 99 01/13/19 17:48 Last Documented Vital Signs Temperature 97.4 F L 01/14/19 12:00 Pulse Rate 82 01/14/19 12:00 Respiratory Rate 15 01/14/19 12:00 Blood Pressure 101/66 01/14/19 12:00 Pulse Oximetry 96 01/14/19 12:00 Medical Decision Making MDM Narrative Medical decision making narrative: 48 female here for evaluation of generalized weakness. Physical exam is unremarkable her vitals are stable. Labs show hypokalemia of 2.5, hyponatremia, elevated creatinine of 2 from baseline of 1.1 last ER visit. She also has some evidence of UTI. She denies any CVA tenderness or flank pain. Patient received 2 g of IV Rocephin, 1 L of IV fluid bolus, 40mEq potassium p.o. and 40 mEq IV, I believe the patient would benefit from 23hrs obs admission. Medical Screen Exam Complete: Yes Emergency Medical Condition: Yes Lab Data Result diagrams: 01/13/19 18:25 01/14/19 06:20 Lab Results 01/13/19 01/13/19 01/13/19 Range/Units 18:25 18:25 18:30 CBC w Diff Auto diff final WBC 7.4 (4.0-11.0) th/mm3 RBC 4.56 (4.00-5.30) mil/mm3 Hgb 14.3 (11.6-15.3) gm/dL Hct 44.0 (35.0-46.0) % MCV 96.5 (80.0-100.0) fL MCH 31.5 (27.0-34.0) pg MCHC 32.6 (32.0-36.0) % RDW 11.8 (11.6-17.2) % Plt Count 447 (150-450) th/mm3 MPV 7.8 (7.0-11.0) fL Neut % (Auto) 53.9 (16.0-70.0) % Lymph % (Auto) 36.3 (9.0-44.0) % [place] % (Auto) 7.2 (0.0-8.0) % Eos % (Auto) 2.0 (0.0-4.0) % Baso % (Auto) 0.6 (0.0-2.0) % Neut # (Auto) 4.1 (1.8-7.7) th/mm3 Lymph # (Auto) 2.7 (1.0-4.8) th/mm3 [place] # (Auto) 0.5 (0.0-0.9) th/mm3 Eos # (Auto) 0.1 (0.0-0.4) th/mm3 Baso # (Auto) 0.0 (0.0-0.2) th/mm3 WBC Differential . Differential Comment . Sodium 128 L (136-145) meq/L Potassium 2.5 L* (3.5-5.1) meq/L Chloride 78 L (98-107) meq/L Carbon Dioxide 42.7 H (21.0-32.0) meq/L Anion Gap 7 (5-15) meq/L BUN 16 (7-18) mg/dL Creatinine 2.00 H (0.50-1.00) mg/dL Estimated GFR 27 L (>89) mL/min Random Glucose 96 (74-106) mg/dL Calcium 10.5 H (8.5-10.1) mg/dL Total Bilirubin 0.4 (0.2-1.0) mg/dL AST 34 (15-37) U/L ALT 34 (10-53) U/L Alkaline Phosphatase 113 (45-117) U/L Troponin I Less than 0.02 L (0.02-0.05) ng/mL Total Protein 8.7 H (6.4-8.2) g/dL Albumin 4.3 (3.4-5.0) g/dL Lipase (73-393) U/L Urine Color Yellow (Yellw/Straw) Urine Clarity Clear (Clear) Urine pH 8.5 (5.0-8.5) Ur Specific [place] 1.020 (1.002-1.035) Urine Protein 30 H (Neg-Trace) mg/dL Urine Glucose (UA) Negative (Negative) mg/dL Urine Ketones Negative (Negative) mg/dL Urine Occult Blood Trace (Negative) Urine Nitrate Negative (Negative) Urine Bilirubin Negative (Negative) Urine Urobilinogen 0.2 (Less than 2) mg/dL Ur Leukocyte Esterase Small H (Negative) Urine RBC 0-3 (0-3) /hpf Urine WBC 9-20 H (0-5) /hpf Ur Squamous Epith Cells Greater than 10 H (0-5) /hpf Urine Bacteria Moderate H (None) /hpf Hyaline Casts 4-10 H (0-3) /lpf Granular Casts 4-10 H (None) /lpf Micro UA Comment Culture indicated Ur Microscopic Review Microscopic reviewed Urine Culture Comments Culture indicated 01/14/19 Range/Units 06:20 CBC w Diff WBC (4.0-11.0) th/mm3 RBC (4.00-5.30) mil/mm3 Hgb (11.6-15.3) gm/dL Hct (35.0-46.0) % MCV (80.0-100.0) fL MCH (27.0-34.0) pg MCHC (32.0-36.0) % RDW (11.6-17.2) % Plt Count (150-450) th/mm3 MPV (7.0-11.0) fL Neut % (Auto) (16.0-70.0) % Lymph % (Auto) (9.0-44.0) % [place] % (Auto) (0.0-8.0) % Eos % (Auto) (0.0-4.0) % Baso % (Auto) (0.0-2.0) % Neut # (Auto) (1.8-7.7) th/mm3 Lymph # (Auto) (1.0-4.8) th/mm3 [place] # (Auto) (0.0-0.9) th/mm3 Eos # (Auto) (0.0-0.4) th/mm3 Baso # (Auto) (0.0-0.2) th/mm3 WBC Differential Differential Comment Sodium 137 (136-145) meq/L Potassium 3.2 L (3.5-5.1) meq/L Chloride 99 D (98-107) meq/L Carbon Dioxide 30.2 D (21.0-32.0) meq/L Anion Gap 8 (5-15) meq/L BUN 14 (7-18) mg/dL Creatinine 1.30 H (0.50-1.00) mg/dL Estimated GFR 44 L (>89) mL/min Random Glucose 98 (74-106) mg/dL Calcium 8.6 D (8.5-10.1) mg/dL Total Bilirubin (0.2-1.0) mg/dL AST (15-37) U/L ALT (10-53) U/L Alkaline Phosphatase (45-117) U/L Troponin I (0.02-0.05) ng/mL Total Protein (6.4-8.2) g/dL Albumin (3.4-5.0) g/dL Lipase 518 H (73-393) U/L Urine Color (Yellw/Straw) Urine Clarity (Clear) Urine pH (5.0-8.5) Ur Specific [place] (1.002-1.035) Urine Protein (Neg-Trace) mg/dL Urine Glucose (UA) (Negative) mg/dL Urine Ketones (Negative) mg/dL Urine Occult Blood (Negative) Urine Nitrate (Negative) Urine Bilirubin (Negative) Urine Urobilinogen (Less than 2) mg/dL Ur Leukocyte Esterase (Negative) Urine RBC (0-3) /hpf Urine WBC (0-5) /hpf Ur Squamous Epith Cells (0-5) /hpf Urine Bacteria (None) /hpf Hyaline Casts (0-3) /lpf Granular Casts (None) /lpf Micro UA Comment Ur Microscopic Review Urine Culture Comments Imaging Data Radiologist's impression: Abdomen/Bladder Ultrasound 01/13/19 19:45 CONCLUSION: Normal appearance of the kidneys with bilateral cysts seen. Discharge Plan Discharge Disposition Patient Disposition: ED Admit(ED Internal Use Only) Discharge Condition Condition: Good Discharge Order Discharge Orders: Discharge Order (Routine); Ordered 01/14/19 Ordered By: Mikey Del Cid ED Use Only Admit Order (Routine); Ordered 01/13/19 Ordered By: Javier Peralta Discharge Details Anticipated Discharge Date: 01/14/19 Physicians Team ED Provider: Javier Peralta Primary Care Provider: Primary Care Alphonse,Shwetha Attending Provider: Mikey Del Cid Status ED Status: Left Department Discharge Information Discharge Date/Time: 01/13/19 21:35
--- NOTE | 2019-01-13 21:59 | US ---
EXAM DATE: 01/13/2019 9:54 PM EST AGE/SEX: 48 years / Female INDICATIONS: Flank pain. CLINICAL DATA: This is the patient's initial encounter. Patient reports that signs and symptoms have been present for 3 days and indicates a pain score of 2/10. MEDICAL/SURGICAL HISTORY: Hypertension. Chronic kidney disease. Tubal ligation. COMPARISON: [facility], CT ENTEROGRAPHY, 12/09/2018. . MEASUREMENTS: Right Kidney:__9.9 x 4.8 x 4.7 cm Left Kidney:__10.4 x 5.3 x 4.5 cm FINDINGS: Right Kidney: The kidney demonstrates normal echogenicity and cortical thickness. No hydronephrosis i s seen. There is a 0.9 cm cyst at the upper pole. Left Kidney: The kidney demonstrates normal echogenicity and cortical thickness. No hydronephrosis is seen. There is a 1.5 cm cyst seen at the mid left kidney. Bladder: Within normal limits given the degree of distension. Other: None. CONCLUSION: Normal appearance of the kidneys with bilateral cysts seen. Electronically signed by: Rodrigo Alonso MD Board Certified Radiologist 01/13/2019 9:57 PM EST
[2019-01-13] MEDS ORDERED: Acetaminophen 325 MG Tablet PO PRN (23:17)
--- NOTE | 2019-01-13 23:30 | P.HP ---
History of Present Illness Service: Care hospitalist Primary Care Physician: No Primary Care Physician Chief Complaint: Generalized weakness feeling of passing out today History of Present Illness: 48 female history of CKD stage III, frequent UTI here for evaluation of generalized weakness. She feels nauseated but no vomiting, over the last 2 days she is not been feeling well, easily tired. No chest pain or shortness of breath, no focal weakness or sensory loss, no slurred speech. She reports abdominal bloating but she follows up with GI for that. 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 Has been drinking water, she has known CKD stage III creatinine approximately a 2 and is followed by nephrology also has been followed by GI for chronic abdominal discomfort and is undergoing current workup recent endoscopy showed some gastritis and there was a stricture she said and possibly being scheduled for colonoscopy has some stool studies as well that is in the process. Patient was in [facility] emergency room and found to have a potassium of 2.5 sodium of 128 unknown baseline but the low potassium could be responsible for her symptoms we will admit try and correct his potassium and recheck in the a.m. also note she had a urinary tract infection with positive WBCs was given Rocephin 2 g, and cultures were sent in the emergency room Patient denies any chest pain shortness of breath nausea at this time but does have a history of nausea no vomit. - Diagnosis (1) Hypokalemia (2) CKD (chronic kidney disease) stage 3, GFR 30-59 ml/min (3) UTI (urinary tract infection) (4) Hyponatremia (5) Hypertension Review of Systems All other systems reviewed negative except as stated in HPI PMFSH - History History Provided By: Patient - Medical History Medical History: Medical History (Last Reviewed 01/13/19 @ 23:28 by Mikey Del Cid MD) CKD (chronic kidney disease) HTN (hypertension) - Surgical History Surgical History: Surgical History (Last Reviewed 01/13/19 @ 23:28 by Mikey Del Cid MD) History of tubal ligation - Tobacco History Second Hand Smoke Exposure: No Smoking Status: Never smoker Tobacco Type: Cigarettes - Alcohol History How Often Do You Have a Drink Containing Alcohol: 2 to 4 times a month - Substance Use History Substance History: No History of Abuse - Travel History Recent Travel in the [place] Within the Last 8 Weeks: No Recent Travel Out of the Country Within the Last 8 Weeks: No - Immunization History Tetanus Immunization: <5 Years Medications and Allergies Active Medications: Active Medications Acetaminophen (Tylenol) 650 mg PO Q4H PRN PRN Reason: Temp > 100.4 Sodium Chloride (Ns Inj) 1,000 mls @ 100 mls/hr IV.CONT .Q10H KAT Last Infusion: 01/13/19 20:45 Dose: Infused Potassium Chloride 10 meq/ (Sodium Chloride) 1,005 mls @ 84 mls/hr IV.CONT .[id number] KAT Lisinopril (Prinivil) 2.5 mg PO DAILY KAT Ondansetron HCl (Zofran Inj) 4 mg IV.PUSH Q6H PRN PRN Reason: NAUSEA OR VOMITING Potassium Chloride (Klor-Con 10) 10 meq PO BID [facility] Senna/Docusate Sodium (Josy-Colace) 1 tab PO BID KAT Sodium Chloride (Ns Flush) 2 ml IV.FLUSH BID KAT Sodium Chloride (Ns Flush) 2 ml IV.FLUSH PRN PRN PRN Reason: FLUSH AFTER USING IV ACCESS Allergies Allergy/AdvReac Type Severity Reaction Status Date / Time No Known Allergies Allergy Verified 01/13/19 17:52 Home Medications Medication Instructions Recorded Confirmed Type lisinopril 2.5 mg PO DAILY 10/08/18 01/13/19 History Exam Vital signs: Vital Signs 01/13/19 17:48 01/13/19 18:46 01/13/19 19:45 Temperature 98.0 F Pulse Rate 87 74 84 Respiratory Rate 16 16 18 Blood Pressure 164/97 H 138/88 157/95 H Pulse Oximetry 99 99 01/13/19 21:35 01/13/19 22:26 Temperature 96.6 F L Pulse Rate 86 88 Respiratory Rate 18 16 Blood Pressure 155/92 H 161/80 H Pulse Oximetry 96 Intake & Output 01/13/19 01/13/19 01/14/19 06:59 18:59 06:59 Intake Total 2099 Balance 2099 Weight 53.2 kg Intake: IV 2099 NS Inj 1,000 ML @ 100 mls/hr IV 1000 / 1000 .CONT .Q10H KAT Rx#:[id number] NS Inj 1,000 ML @ Wide Open IV. 1000 / 1000 SIG BOLUS ONE Rx#:[id number] Rocephin Inj 2,000 MG In NS Inj 100 / 100 100 ML @ 200 mls/hr IV.SIG ONCE ONE Rx#:[id number] Narrative: GENERAL: SKIN: Warm and dry. HEAD: Atraumatic. Normocephalic. EYES: Pupils equal and round. No scleral icterus. No injection or drainage. ENT: No nasal bleeding or discharge. Mucous membranes pink and moist. NECK: Trachea midline. No JVD. CARDIOVASCULAR: Regular rate and rhythm. RESPIRATORY: No accessory muscle use. Clear to auscultation. Breath sounds equal bilaterally. GASTROINTESTINAL: Abdomen soft, non-tender, nondistended. Hepatic and splenic margins not palpable. MUSCULOSKELETAL: Extremities without clubbing, cyanosis, or edema. No obvious deformities. NEUROLOGICAL: Awake and alert. No obvious cranial nerve deficits. Motor grossly within normal limits. Five out of 5 muscle strength in the arms and legs. Normal speech. PSYCHIATRIC: Appropriate mood and affect; insight and judgment normal. Results - Labs CBC & Chem 7: 01/13/19 18:25 01/13/19 18:25 Labs: Laboratory Results - last 24 hr 01/13/19 01/13/19 01/13/19 18:25 18:25 18:30 CBC w Diff Auto diff final WBC 7.4 RBC 4.56 Hgb 14.3 Hct 44.0 MCV 96.5 MCH 31.5 MCHC 32.6 RDW 11.8 Plt Count 447 MPV 7.8 Neut % (Auto) 53.9 Lymph % (Auto) 36.3 [place] % (Auto) 7.2 Eos % (Auto) 2.0 Baso % (Auto) 0.6 Neut # (Auto) 4.1 Lymph # (Auto) 2.7 [place] # (Auto) 0.5 Eos # (Auto) 0.1 Baso # (Auto) 0.0 WBC Differential . Differential Comment . Sodium 128 L Potassium 2.5 L* Chloride 78 L Carbon Dioxide 42.7 H Anion Gap 7 BUN 16 Creatinine 2.00 H Estimated GFR 27 L Random Glucose 96 Calcium 10.5 H Total Bilirubin 0.4 AST 34 ALT 34 Alkaline Phosphatase 113 Troponin I Less than 0.02 L Total Protein 8.7 H Albumin 4.3 Urine Color Yellow Urine Clarity Clear Urine pH 8.5 Ur Specific [place] 1.020 Urine Protein 30 H Urine Glucose (UA) Negative Urine Ketones Negative Urine Occult Blood Trace Urine Nitrate Negative Urine Bilirubin Negative Urine Urobilinogen 0.2 Ur Leukocyte Esterase Small H Urine RBC 0-3 Urine WBC 9-20 H Ur Squamous Epith Cells Greater than 10 H Urine Bacteria Moderate H Hyaline Casts 4-10 H Granular Casts 4-10 H Micro UA Comment Culture indicated Ur Microscopic Review Microscopic reviewed Urine Culture Comments Culture indicated - Imaging Impressions Abdomen/Bladder Ultrasound 01/13/19 19:45 CONCLUSION: Normal appearance of the kidneys with bilateral cysts seen. Caprini VTE Risk Assessment Caprini VTE Risk Assessment: No/Low Risk (score <= 1) Caprini Risk Assessment Model: Point Value = 1 Point Value = 2 Point Value = 3 Point Value = 5 Age 41-60 Minor surgery BMI > 25 kg/m2 Swollen legs Varicose veins or History of unexplained or recurrent spontaneous Oral contraceptives or hormone replacement Sepsis (< 1 month) Serious lung disease, including pneumonia (< 1 month) Abnormal pulmonary function Acute myocardial infarction Congestive heart failure (< 1 month) History of inflammatory bowel disease Medical patient at bed rest Age 61-74 Arthroscopic surgery Major open surgery (> 45 min) Laparoscopic surgery (> 45 min) Malignancy Confined to bed (> 72 hours) Immobilizing plaster cast Central venous access Age >= 75 History of VTE Family history of VTE Factor V Leiden Prothrombin [id number] Lupus anticoagulant Anticardiolipin antibodies Elevated serum homocysteine Heparin-induced thrombocytopenia Other congenital or acquired thrombophilia Stroke (< 1 month) Elective arthroplasty Hip, pelvis, or leg fracture Acute spinal cord injury (< 1 month) Prophylaxis Regimen: Total Risk Factor Score Risk Level Prophylaxis Regimen 0-1 Low Early ambulation 2 Moderate Order ONE of the following: *Sequential Compression Device (SCD) *Heparin 5000 units SQ BID 3-4 Higher Order ONE of the following medications: *Heparin 5000 units SQ TID *Enoxaparin/Lovenox 40 mg SQ daily (WT < 150 kg, CrCl > 30 mL/min) *Enoxaparin/Lovenox 30 mg SQ daily (WT < 150 kg, CrCl > 10-29 mL/min) *Enoxaparin/Lovenox 30 mg SQ BID (WT < 150 kg, CrCl > 30 mL/min) AND/OR *Sequential Compression Device (SCD) 5 or more Highest Order ONE of the following medications: *Heparin 5000 units SQ TID (Preferred with Epidurals) *Enoxaparin/Lovenox 40 mg SQ daily (WT < 150 kg, CrCl > 30 mL/min) *Enoxaparin/Lovenox 30 mg SQ daily (WT < 150 kg, CrCl > 10-29 mL/min) *Enoxaparin/Lovenox 30 mg SQ BID (WT < 150 kg, CrCl > 30 mL/min) AND *Sequential Compression Device (SCD) Assessment and Plan - Assessment (1) Hypokalemia Code(s): E87.6 - Hypokalemia Status: Acute Plan: We will replenish potassium possible etiology of related to her recent work exhausting herself and 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 recheck levels in the morning (2) CKD (chronic kidney disease) stage 3, GFR 30-59 ml/min Code(s): N18.3 - Chronic kidney disease, stage 3 (moderate) Status: Acute Plan: Follows with nephrology we will recheck levels in the morning (3) UTI (urinary tract infection) Code(s): N39.0 - Urinary tract infection, site not specified Status: Acute Plan: Was given Rocephin 2 g in the emergency room await for urine culture before any other decision regarding antibiotics (4) Hyponatremia Code(s): E87.1 - Hypo-osmolality and hyponatremia Status: Acute Plan: We will recheck sodium in the morning we will start some IV fluid tonight normal saline with potassium in the IV follow-up labs (5) Hypertension Code(s): I10 - Essential (primary) hypertension Status: Acute Plan: Continue lisinopril 2.5 for now - Plan Further plan on review of labs Code Status: Full Discussed Condition With: Patient
[2019-01-14] MEDS ORDERED: Potassium Chloride Inj 10 MEQ in Sod Chloride 0.9% Inj 1,000 ML IV.CONT SCH (01:00)
[2019-01-14] MEDS: Sod Chloride 0.9% Inj 1,000 ML IV.CONT SCH (06:03)
[2019-01-14 07:23] LABS: Carbon Dioxide 30.2 meq/L (21.0-32.0); Potassium 3.2 meq/L (3.5-5.1)
[2019-01-14 07:24] LABS: Calcium 8.6 mg/dL (8.5-10.1)
--- NOTE | 2019-01-14 08:17 | ECG ---
Date Performed: 01/13/2019 Time Performed: 19:49:47 PTAGE: 48 years EKG: Sinus rhythm POSSIBLE LEFT ATRIAL ENLARGEMENT NONSPECIFIC ST ABNORMALITY ABNORMAL ECG PREVIOUS TRACING : 10/08/2018 19.36 Compared to previous tracing, nonspecific ST abnormality is now evident. DOCTOR: Kaiden Gates Interpretating Date/Time 01/14/2019 08:16:43
[2019-01-14] MEDS ORDERED: Lisinopril 5 MG Tablet PO SCH (09:00)
[2019-01-14] MEDS ORDERED: Senna/Docusate Sodium 8.6/50 MG Tablet PO SCH (09:00)
[2019-01-14] MEDS ORDERED: Potassium Chlor 10 mEq Premix 10 MEQ/100 ML PIGGYBACK IV.SIG ONE (10:30)
[2019-01-14] MEDS ORDERED: Ciprofloxacin 500 MG Tablet PO ONE (10:35)
--- NOTE | 2019-01-14 13:05 | P.DS ---
Date of admission: 01/13/19 19:51 Primary care physician: No Primary Care Physician Attending physician on discharge: Mikey Nehemias Anticipated date of discharge: 01/14/19 Brief History from admission: 48 female history of CKD stage III, frequent UTI here for evaluation of generalized weakness. She feels nauseated but no vomiting, over the last 2 days she is not been feeling well, easily tired. No chest pain or shortness of breath, no focal weakness or sensory loss, no slurred speech. She reports abdominal bloating but she follows up with GI for that. 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 Has been drinking water, she has known CKD stage III creatinine approximately a 2 and is followed by nephrology also has been followed by GI for chronic abdominal discomfort and is undergoing current workup recent endoscopy showed some gastritis and there was a stricture she said and possibly being scheduled for colonoscopy has some stool studies as well that is in the process. Patient was in [facility] emergency room and found to have a potassium of 2.5 sodium of 128 unknown baseline but the low potassium could be responsible for her symptoms we will admit try and correct his potassium and recheck in the a.m. also note she had a urinary tract infection with positive WBCs was given Rocephin 2 g, and cultures were sent in the emergency room Patient denies any chest pain shortness of breath nausea at this time but does have a history of nausea no vomit. Patient update on day of discharge: stable for discharge DS: Diagnosis - Discharge Diagnosis (1) Hypokalemia Status: Acute (2) CKD (chronic kidney disease) stage 3, GFR 30-59 ml/min Status: Acute (3) UTI (urinary tract infection) Status: Acute (4) Hyponatremia Status: Acute (5) Hypertension Status: Acute DS: Summary Hospital Course: Patient admitted for hypokalemia 2.5 low sodium with ckd stage3 given IV fluid and potassium both IV and po with improvement ,kidney function improved from cr 2 ,also sodium which initially was low now normal ,patient did have slight elevation lipase but is currently followed by GI as outpatient for abdominal problems. 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 Patient has bmp and lipase to be done 01/17/19 at [facility] and to follow with PCP ,in [facility] chart assigned to [facility]. - Time Spent with Patient Total time spent providing and/or coordinating discharge services: Greater than 30 minutes - Quality: VTE Deep Vein Thrombosis/Pulmonary Embolism Present on Admission: No Exam Vital signs: Vital Signs 01/13/19 17:48 01/13/19 18:46 01/13/19 19:45 Temperature 98.0 F Pulse Rate 87 74 84 Respiratory Rate 16 16 18 Blood Pressure 164/97 H 138/88 157/95 H Pulse Oximetry 99 99 01/13/19 21:35 01/13/19 22:26 01/14/19 00:00 Temperature 96.6 F L 97.8 F Pulse Rate 86 88 73 Respiratory Rate 18 16 16 Blood Pressure 155/92 H 161/80 H 152/92 H Pulse Oximetry 96 96 01/14/19 05:16 01/14/19 08:00 Temperature 96.4 F L Pulse Rate 70 Respiratory Rate 18 14 Blood Pressure 143/84 H Pulse Oximetry 99 Intake & Output 01/13/19 01/14/19 01/14/19 18:59 06:59 18:59 Intake Total 2680 / 2680 Balance 2680 / 2680 Weight 53.2 kg 53.2 kg Intake: IV 2200 / 2200 NS Inj 1,000 ML @ 100 mls/hr IV 1000 / 1000 .CONT .Q10H KAT Rx#:[id number] KCl 20 mEq Premix Inj 20 meq In 100 / 100 100 ml @ 50 mls/hr IV.SIG ONCE ONE Rx#:[id number] NS Inj 1,000 ML @ Wide Open IV. 1000 / 1000 SIG BOLUS ONE Rx#:[id number] Rocephin Inj 2,000 MG In NS Inj 100 / 100 100 ML @ 200 mls/hr IV.SIG ONCE ONE Rx#:[id number] Oral Supplement 480 / 480 Other: # Voids 1 Date of Last Bowel Movement 01/13/18 Weight On Admission 53.2 kg Narrative: GENERAL: SKIN: Warm and dry. HEAD: Atraumatic. Normocephalic. EYES: Pupils equal and round. No scleral icterus. No injection or drainage. ENT: No nasal bleeding or discharge. Mucous membranes pink and moist. NECK: Trachea midline. No JVD. CARDIOVASCULAR: Regular rate and rhythm. RESPIRATORY: No accessory muscle use. Clear to auscultation. Breath sounds equal bilaterally. GASTROINTESTINAL: Abdomen soft, non-tender, nondistended. Hepatic and splenic margins not palpable. MUSCULOSKELETAL: Extremities without clubbing, cyanosis, or edema. No obvious deformities. NEUROLOGICAL: Awake and alert. No obvious cranial nerve deficits. Motor grossly within normal limits. Five out of 5 muscle strength in the arms and legs. Normal speech. PSYCHIATRIC: Appropriate mood and affect; insight and judgment normal. Results Procedures completed during hospitalization: None ,IV fluid Labs on day of discharge: Labs from last 24 hours 01/14/19 01/13/19 01/13/19 06:20 18:30 18:25 CBC w Diff Auto diff final WBC 7.4 RBC 4.56 Hgb 14.3 Hct 44.0 MCV 96.5 MCH 31.5 MCHC 32.6 RDW 11.8 Plt Count 447 MPV 7.8 Neut % (Auto) 53.9 Lymph % (Auto) 36.3 [place] % (Auto) 7.2 Eos % (Auto) 2.0 Baso % (Auto) 0.6 Neut # (Auto) 4.1 Lymph # (Auto) 2.7 [place] # (Auto) 0.5 Eos # (Auto) 0.1 Baso # (Auto) 0.0 WBC Differential . Differential Comment . Sodium 137 Potassium 3.2 L Chloride 99 D Carbon Dioxide 30.2 D Anion Gap 8 BUN 14 Creatinine 1.30 H Estimated GFR 44 L Random Glucose 98 Calcium 8.6 D Total Bilirubin AST ALT Alkaline Phosphatase Troponin I Total Protein Albumin Lipase 518 H Urine Color Yellow Urine Clarity Clear Urine pH 8.5 Ur Specific [place] 1.020 Urine Protein 30 H Urine Glucose (UA) Negative Urine Ketones Negative Urine Occult Blood Trace Urine Nitrate Negative Urine Bilirubin Negative Urine Urobilinogen 0.2 Ur Leukocyte Esterase Small H Urine RBC 0-3 Urine WBC 9-20 H Ur Squamous Epith Cells Greater than 10 H Urine Bacteria Moderate H Hyaline Casts 4-10 H Granular Casts 4-10 H Micro UA Comment Culture indicated Ur Microscopic Review Microscopic reviewed Urine Culture Comments Culture indicated 01/13/19 18:25 CBC w Diff WBC RBC Hgb Hct MCV MCH MCHC RDW Plt Count MPV Neut % (Auto) Lymph % (Auto) [place] % (Auto) Eos % (Auto) Baso % (Auto) Neut # (Auto) Lymph # (Auto) [place] # (Auto) Eos # (Auto) Baso # (Auto) WBC Differential Differential Comment Sodium 128 L Potassium 2.5 L* Chloride 78 L Carbon Dioxide 42.7 H Anion Gap 7 BUN 16 Creatinine 2.00 H Estimated GFR 27 L Random Glucose 96 Calcium 10.5 H Total Bilirubin 0.4 AST 34 ALT 34 Alkaline Phosphatase 113 Troponin I Less than 0.02 L Total Protein 8.7 H Albumin 4.3 Lipase Urine Color Urine Clarity Urine pH Ur Specific [place] Urine Protein Urine Glucose (UA) Urine Ketones Urine Occult Blood Urine Nitrate Urine Bilirubin Urine Urobilinogen Ur Leukocyte Esterase Urine RBC Urine WBC Ur Squamous Epith Cells Urine Bacteria Hyaline Casts Granular Casts Micro UA Comment Ur Microscopic Review Urine Culture Comments - Impressions ITS Impressions Abdomen/Bladder Ultrasound 01/13/19 19:45 CONCLUSION: Normal appearance of the kidneys with bilateral cysts seen. Discharge Plan - Discharge Disposition Patient Disposition: 01 Discharge Home - Discharge Condition Condition: Good - Discharge Order Discharge Orders: Discharge Order (Routine); Ordered 01/14/19 Ordered By: Mikey Del Cid ED Use Only Admit Order (Routine); Ordered 01/13/19 Ordered By: Javier Peralta - Discharge Details Anticipated Discharge Date: 01/14/19 - Physicians Team Primary Care Provider: Primary Care Shwetha Cunha Attending Provider: Mikey Del Cid
[2019-01-14 13:31] VITALS: BP 101/66; PULSE 82; RESP 15; TEMP 97.4; O2SAT 96
== END 2019-01-14 15:51 | disposition home or self-care (01) ==
LOC: PHED 17:34 → PHEDA 17:34 → PH3 21:35
PROVIDERS: ADMIT Internal Medicine; ATTEND Internal Medicine
DX: Z79.899 Other long term (current) drug therapy; E87.1 Hypo-osmolality and hyponatremia; I12.9 Hypertensive chronic kidney disease with stage 1 through stage 4 chronic kidney disease, or unspecified chronic kidney disease; Q61.02 Congenital multiple renal cysts; N18.3 Chronic kidney disease, stage 3 (moderate); E87.6 Hypokalemia; N39.0 Urinary tract infection, site not specified
CPT/HCPCS: 76775; 80048; 80053; 81001; 83690; 84484; 85025; 87086; 87275; 87276; 87804; 90761; 93005; 96361; 96365; 96375; 96376; 99285; G0378; J0696; J3480; J7030